=== PATIENT | female | born 1975 | race Caucasian/White ===

== ENCOUNTER 2018-02-22 09:38 | Emergency (ER) | payer OTHER, SELFPAY ==
[2018-02-22 09:41] VITALS: BP 163/94; PULSE 72; RESP 16; TEMP 36.6; O2SAT 100; BMI 28.2
--- NOTE | 2018-02-22 09:55 | RAD_ITS ---
STUDY: X-RAY - RIGHT HAND, ATTENTION SECOND FINGER REASON FOR EXAM: Female, 42 years old. INJURY, PAIN PROXIMAL FINGER TECHNIQUE: 3 view(s) of the finger were obtained. COMPARISON: None. FINDINGS: Normal metacarpal head. Normal metacarpophalangeal joint. Normal proximal phalanx. Normal middle phalanx. Normal distal phalanx. Normal proximal interphalangeal joint. Normal distal interphalangeal joint. RAD/Finger(s) Min 2 Views IMPRESSION: Normal x-ray examination of the finger. Electronically Signed: Sharmaine Serrano MD at 10:09 EDT , Service support ,
--- NOTE | 2018-02-22 09:55 | ED.VISSUMM ---
- ER Visit Summary Date of Service: 02/22/18 Chief Complaint: Right middle finger injury History of Present Illness: The patient is a 42 F with no primary care physician. 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 She reports that 2 days ago she was breaking down a cardboard box when 1 of the flap slammed down on her right index finger. She reports that at that point she seemed to have a forced flexion at the MCP joint. She states that it happened quickly and she is unsure whether she was able to straighten this out on her own or whether she had use her other hand to straighten it out. However, she reports that since then she has had an aching pain is 6 out of 10 with movement and 4 out of 10 at rest. She denies any paresthesias distally. She denies any other complaints. Physical Examination: Vitals: Stable. Afebrile. General: Well-nourished and well-developed. Head: Normocephalic atraumatic. Neck: Supple, no lymphadenopathy. No JVD. Nontender. Cardiovascular: Regular rate and rhythm. No murmurs. Respiratory: No respiratory distress. Clear to auscultation bilaterally. Abdominal: Soft, nontender, nondistended, normal bowel sounds. No guarding, rebound, or peritoneal signs. Back: Nontender. Extremities: Right index finger shows her to have mild tenderness palpation over the palmar surface of her hand over the second metacarpal head and MCP joint. She has minimal ability to flex the MCP joint. She is able to flex the PIP joint to approximately 90?. She is able to extend against resistance without difficulty. There is mild soft tissue swelling. She is neurovascular intact. Neurologic: Alert and oriented ?3. Cranial nerves II through XII are intact. Normal strength and sensation. Psych: Normal affect. Test Results: Right second finger x-ray is normal. Emergency Department Course and Treatment: Patient refused pain medications. She already has an aluminum foam splint in place. Treatment Plan: Patient will be discharged instructions to follow-up with Dr. Mcbride in 1 week if not improving. Disposition: To home in improved and stable condition. Impression: 1. Right second MCP joint sprain. This note was generated with [employer] dictation software. It may contain incorrect words, spelling, and punctuation that were not noted in review of the chart prior to signing ED Disposition - Plan for ED Patient: Chief Complaint: Upper Extremity Injury Instructions: ED Sprain Finger Referrals: Ashley Mcbride DO [STAFF PHYSICIAN] - 1 Week if not improving
[2018-02-22 10:58] VITALS: RESP 16
--- NOTE | 2018-02-22 10:58 | ED.RN ---
REVIEWED D/C INSTRUCTIONS, FOLLOW UP CARE, AND S/S THAT WOULD WARRANT A RETURN TO THE ED WITH PT. PT VERBALIZED AN UNDERSTANDING AND DENIES FURTHER QUESTIONS FOR THIS RN. PT SKIN P/W/D, RESP EVEN AND UNLABORED, PT A&O X 3, NO DISTRESS NOTED. PT AMBULATED OUT OF ED, GAIT STEADY.
== END 2018-02-22 10:59 | disposition home or self-care (01) ==
PROVIDERS: Emergency Provider Emergency Medicine
DX: S63.650A Sprain of metacarpophalangeal joint of right index finger, initial encounter (principal); Y29.XXXA Contact with blunt object, undetermined intent, initial encounter; Y93.9 Activity, unspecified; Y92.89 Other specified places as the place of occurrence of the external cause; Y99.9 Unspecified external cause status; F17.200 Nicotine dependence, unspecified, uncomplicated
CPT/HCPCS: 73140; 99282

== ENCOUNTER 2025-04-30 23:52 | Emergency (ER) | payer MEDICAID, SELFPAY ==
[2025-04-30 23:52] VITALS: BP 199/105; BP 205/111; PULSE 120; PULSE 128; RESP 19; RESP 20; TEMP 36.2; O2SAT 98; BMI 30.8
[2025-05-01] VITALS (7 sets, daily range): BP systolic 150–195; BP diastolic 81–117; PULSE 76–106; RESP 16–18; TEMP 36.5–36.8; O2SAT 97–100
--- NOTE | 2025-05-01 00:13 | EX.ED.VIS.PS ---
HPI HPI - Psych History of Present Illness Chief Complaint: Depression Informant: patient and mental health staff Onset/Context/Timing Onset: Days Context: Gradual Onset Timing: Continuous Worsened by: Situational factors Relieved by: Nothing Associated Symptoms Associated Symptoms - Psych: Positive for Depressed, Change in Eating, Change in sleeping, Paranoia and - (Tactile hallucinations); Negative for Suicidal Thoughts, Visual Hallucinations or Auditory Hallucinations Narrative Narrative: Patient presents with worsening depression. Patient denies any suicidal or homicidal ideations. Patient was pink slipped by crisis. Crisis counselor states the patient has been having tactile hallucinations. Patient states it feels like there is mold growing on her. Patient was seen by winch runner today who did a biopsy on her left forearm. Patient states she has sores on her left forearm that are due to mold. Crisis counselor states patient is not eating as much as normal. Crisis counselor states patient not sleeping is much as normal. Crisis counselor is making arrangements for patient to be placed in a psychiatric facility. [facility] Medical History (Updated 05/01/25 @ 00:47 by Maryam Majano) Hx of Narcolepsy Idiopathic insomnia Neeraj's thyroiditis Home Medications ?Medication ?Instructions ?Recorded ?Last Taken ?Type albuterol sulfate 90 mcg/actuation 2 puff inhalation Q4H PRN PRN 05/01/25 Unknown History aerosol inhaler wheezing bisoprolol fumarate 5 mg tablet 5 mg PO DAILY 05/01/25 Unknown History cefdinir 300 mg capsule 300 mg PO Q12H 05/01/25 Unknown History clindamycin phosphate 1 % lotion 1 applic topical BID 05/01/25 Unknown History dextroamphetamine-amphetamine 30 1 tab PO DAILY 05/01/25 Unknown History mg tablet dextroamphetamine-amphetamine ER 1 cap PO DAILY 05/01/25 Unknown History 30 mg 24hr capsule,extend release estradiol 0.1 mg/24 hr weekly 1 patch transdermal QWEEK 05/01/25 Unknown History transdermal patch prednisone 20 mg tablet 20 mg PO DAILY 05/01/25 Unknown History progesterone micronized 100 mg 100 mg PO DAILY 05/01/25 Unknown History capsule solriamfetol 150 mg tablet (Sunosi) 150 mg PO DAILY 05/01/25 Unknown History thyroid (pork) 30 mg tablet 150 mg PO DAILY 05/01/25 Unknown History ([place] Thyroid) triamcinolone acetonide 0.1 % 1 applic topical TID 05/01/25 Unknown History topical cream Allergy/AdvReac Type Severity Reaction Status Date / Time Sulfa (Sulfonamide Allergy Unknown Verified 05/01/25 02:22 Antibiotics) Surgical History (Updated 05/01/25 @ 00:47 by Maryam Majano) Hx of cervical polypectomy Hx of dilation and curettage Hx of tubal ligation Hx of wisdom tooth extraction Social History (Updated 05/01/25 @ 00:[address] Jeff Lockhart, DO) Smoking Status: Former smoker EXAM Physical Exam Const Vital Signs: 04/30/25 23:52 04/30/25 23:52 05/01/25 02:00 Temperature 97.1 F L Temperature Source Temporal Pulse Rate 128 H 120 H 106 H Respiratory Rate 19 H 20 H 18 Blood Pressure 205/111 H 199/105 H 188/117 H Blood Pressure Mean 142 136 140 Pulse Ox 98 98 98 Oxygen Delivery Method Room Air Room Air Room Air 05/01/25 04:00 05/01/25 06:00 Temperature 98.2 F Temperature Source Oral Pulse Rate 97 84 Respiratory Rate 18 18 Blood Pressure 195/116 H 150/88 H Blood Pressure Mean 142 108 Pulse Ox 100 98 Oxygen Delivery Method Room Air Room Air Positive well nourished and well developed Constitutional Narrative: BMI is 30.8. General Appearance ED: well developed and NAD HEENT Reports moist mucous membranes normocephalic Neck supple and no JVD Resp normal respiratory effort and clear to auscultation bilaterally Cardio Rate: regular rate Rhythm: regular rhythm GI non-tender and non-distended Palpation: soft Neuro oriented x3, CN's II-XII intact bilaterally and no sensory deficits noted [place] Coma Scale: document GCS findings Spontaneous Obeys Commands Oriented 15 Sensorium / Orientation: alert Motor Exam: strength 5/5 throughout Psych Appearance: grossly normal Attitude: paranoid and agitated Activity / Motor Behavior: appropriate eye contact, hyperactive and restless Speech: excessive and rapid Mood & Affect: anxious, tearful and labile affect Thought Process: racing thoughts Thought Content: No suicidality, No homicidality and hallucination(s) Positive for tactile MDM MDM MDM Narrative Medical decision making narrative: Medical screening labs will be obtained. CBC will be obtained to assess for leukocytosis or anemia. Basic metabolic profile will be obtained to assess for electrolyte abnormality and renal function. Serum hCG will be obtained to assess for . Serum alcohol level will be obtained to assess for alcohol intoxication. Urine drug screen will be obtained to assess for substance abuse. Lab Data Attestation: I reviewed the patient's lab results. Lab results narrative: CBC was reviewed and was within normal limits. Basic metabolic profile was reviewed and was within normal limits. Serum alcohol level was reviewed and was less than 10.1. Urine drug screen was reviewed and was positive for amphetamines but was otherwise negative. Labs: Laboratory Results - last 24 hr 05/01/25 00:34 WBC 10.9 RBC 5.23 Hgb 14.7 Hct 43.9 MCV 83.9 MCH 28.1 MCHC 33.5 RDW Std Deviation 42.8 RDW Coeff of Drake 14.0 Plt Count 290 MPV 9.9 Immature Gran % (Auto) 0.400 Neut % (Auto) 75.7 H Lymph % (Auto) 15.6 L Kimble % (Auto) 7.8 Eos % (Auto) 0.3 Baso % (Auto) 0.2 Absolute Neuts (auto) 8.2 H Absolute Lymphs (auto) 1.70 Nucleated RBC % 0 Sodium 140 Potassium 3.9 Chloride 107 Carbon Dioxide 19.8 L Anion Gap 14 BUN 15 Creatinine 0.89 Estim Creat Clear Calc 84.76 Est GFR (MDRD) Non-Af 80 BUN/Creatinine Ratio 17.2 Glucose 126 H Calcium 9.2 Serum , Qual NEGATIVE Urine Opiates Screen NEGATIVE U Buprenorphine Qual NEGATIVE Ur Oxycodone Screen NEGATIVE Urine Methadone Screen NEGATIVE Urine Fentanyl Screen NEGATIVE Ur Barbiturates Screen NEGATIVE Ur Phencyclidine Scrn NEGATIVE Ur Amphetamines Screen PRESUMPTIVE POSITIVE U Benzodiazepines Scrn NEGATIVE Urine Cocaine Screen NEGATIVE U Cannabinoids Screen NEGATIVE Ethyl Alcohol < 10.1 Management Discussion w/another healthcare provider: Behavioral health Treatment and Re-Evaluation Narrative: Patient was given injection of Geodon here. Crisis counselor filled out a pink slip. Patient will be transferred to psychiatric facility when bed becomes available. Patient is medically cleared for placement. Patient was given a dose of her blood pressure medication. Patient was given a repeat dose of her blood pressure medication again this morning. Patient is pending acceptance to [facility]. Care of the patient will be turned over to the oncoming physician pending placement. Discharge Plan Triage Chief Complaint: Depression ED Provider: Jeff Lockhart Dx/Rx/DC Orders Clinical Impression: Depression, Tactile hallucinations, Paranoid ideation Prescriptions: No Action albuterol sulfate 90 mcg/actuation HFA aerosol inhaler 2 puff INHALATION Q4H PRN PRN (Reason: wheezing) thyroid (pork) [[place] Thyroid] 30 mg tablet 150 mg PO DAILY dextroamphetamine-amphetamine 30 mg capsule,extended release 24hr 1 cap PO DAILY Sunosi 150 mg tablet 150 mg PO DAILY dextroamphetamine-amphetamine 30 mg tablet 1 tab PO DAILY Patient Comments: in the afternoon cefdinir 300 mg capsule 300 mg PO Q12H prednisone 20 mg tablet 20 mg PO DAILY bisoprolol fumarate 5 mg tablet 5 mg PO DAILY estradiol 0.1 mg/24 hr patch weekly 1 patch transdermal QWEEK progesterone micronized 100 mg capsule 100 mg PO DAILY clindamycin phosphate 1 % lotion 1 applic topical BID triamcinolone acetonide 0.1 % cream 1 applic topical TID Primary Care Provider: Marilou Chino Referrals: Care Physician,No Primary [Non-Staff] - Print Language: Pashto Disposition Disposition: Psychiatric Hospital or Unit Discharge Location: [facility]
--- NOTE | 2025-05-01 00:38 | ED.RN ---
This RN attempted to complete the patient's required arnold along with the appropriate assessments on the patient. However when this RN attempted to get the patient changed into gowns and to remove her personal belongings from the room, the patient became very argumentative with this RN, stating do you think I am a mental person, why would I need to be in a gown, why can I not have my belongings. This RN attempted to explain the process of being in the ED and what being pink slipped meant for the patient, however, the patient proceeded to interrupt this RN, becoming increasingly more agitated and upset. The patient spontaneously would break out into tears, stating I am just so lonely and I don't understand why you are punishing me for being sad, I don't understand why you think I am a mental person, and why you think I need psychiatric help, I have medical conditions, that I take care of. I am not a crazy person, if I was, I would get help. I don't understand why you are doing this to me. At this point, NIGHAT Hancock entered the room and explained to the patient the plan of care while the patient was in the ED. NIGHAT Hancock explained to the patient that the patient was pink slipped by the crisis center and they recommended acute psychiatric care and that we legally need to follow what the pink slip states. Multiple times during this interaction, the patient remained on her phone, texting and attempting to call the patient's family members. NIGHAT Hancock read the pink slip to the patient to help the patient understand why the patient was recommended for acute psychiatric care. The patient remained on her phone. NIGHAT Hancock politely asked the patient to put her phone down if she would like to have a discussion. The patient burst into tears stating, I don't understand why you guys think I am crazy, I have real medical issues because I had mold in my house and now I have it in my skin, which is why I went and got it biopsied. I have real things wrong with me, I don't understand why you think I am hallucinating, I don't have that type of narcolepsy. I have it in my chart that I don't have hallucinations, I don't understand why you don't get that. After a lengthy conversation, the patient agreed to get dressed in the gowns and to put her belongings in patient belonging bags. This RN completed the appropriate documentation on the patient and allowed the patient to eat the food that the patient had brought in with her, to attempt to calm the patient down.
[2025-05-01 00:41] LABS: Hematocrit 43.9 % (37-47); Hemoglobin 14.7 g/dL (12.0-15.0); Immature Granulocytes Count 0.040 X10^3/uL (0.0-0.0); Mean Corp Hgb Conc 33.5 g/dL (32-36); Mean Corpuscular Volume 83.9 fL (81-99); Mean Platelet Vol. 9.9 fl (6.2-12.0); NRBC Flagged by Analyzer 0 % (0-5); Platelet Count 290 K/mm3 (150-450); RBC Distribution Width CV 14.0 % (11.6-14.6); RBC Distribution Width SD 42.8 fl (35.1-43.9); Red Blood Count 5.23 M/mm3 (4.2-5.4); White Blood Count 10.9 K/mm3 (4.4-11.0)
[2025-05-01 00:57] LABS: Internal QC Validated? YES +Cl - CLEAR BKGD; Pregnancy, Serum, hCG Quali. NEGATIVE Negative; Record Kit Lot#, Serum Preg. 0000962302
[2025-05-01 01:03] LABS: Alcohol, Blood (Medical)-Serum < 10.1 mg/dL (<=10.0); Anion Gap 14 (5-15); BUN 15 mg/dL (4-19); BUN/Creat Ratio 17.2 RATIO (10-20); Barbiturate Urine NEGATIVE (< 200 ng/mL); Benzodiazepine Urine NEGATIVE (< 200 ng/mL); Calcium,Total 9.2 mg/dL (7.6-11.0); Carbon Dioxide 19.8 mmol/L (21.0-32.0); Chloride 107 mmol/L (98-108); Estimated Creatinine Clearance 84.76 ml/min (50-250); Glucose 126 mg/dL (70-99); PCP Urine NEGATIVE (< 25 ng/mL); Potassium 3.9 mmol/L (3.3-5.1); THC Urine NEGATIVE (< 50 ng/mL)
--- OUTSIDE RECORDS SUMMARY | 2025-05-01 01:04 | XMS RPT_ITS | CCD ---
Author Organization [facility] Care Team Providers Care Computer Security Manager Name Role Phone Joshua Paul Unavailable Unavailable Primay Care Physicia, No Unavailable Unavail able Unavailable Primary Care Provider Unavailabl e Unavailable Primary Care Provider Unavailabl e PROVIDER, UNKNOWN Referring Unavailable Matti, Carlos Primary Care Unavailable Carlos Chino Attending Unavailable PROVIDER, UNKNOWN Referring Unavailable Matti, Carlos Primary Care Unavailable Carlos Chino Attending Unavailable Carlos Chino DO Primary Care Provider TYLER RICK Referring Unavailable TYLER RICK Referring Unavailable CHINO, CARLOS Primary Care Unavailable CHENG RUIZ~[phone], CHENG ARELLANO Attending Un available CHENG RUIZ~[phone], CHENG ARELLANO Admitting Un available Carlos Chino DO Primary Care Provider BJ MERAZ DO Attending Unavailable CHINO, CARLOS Primary Care Unavailable CHINO, CARLOS Primary Care Unavailable AMANDA ZAMUDIO Attending Unavailable AMANDA ZAMUDIO Admitting Unavailable ROGER DAVIES JR Attending Unavailab le MATTI, CARLOS Primary Care Unavailable ANAND, EILEEN Referring Unavailable ANAND, EILEEN Attending Unavailable CHINO, CARLOS Primary Care Unavailable CHINO, CARLOS Primary Care Unavailable CHANDNI BEST Attending Unavailable CHINO, CARLOS Primary Care Unavailable CHINO, CARLOS Referring Unavailable JASON CHINOMAN Attending Unavailable CHINO, CARLOS Primary Care Unavailable JONY VALLADARES Attending Unavailable CHINO, CARLOS Primary Care Unavailable AKASH VALLADARESOR Attending Unavailable ANAND, EILEEN Referring Unavailable CHENG, EILEEN Attending Unavailable CHINO, CARLOS Primary Care Unavailable CHINO, CARLOS Primary Care Unavailable JEFF BROOKS Attending Unavailable CHINO, CARLOS Primary Care Unavailable AMANDA ZAMUDIO Attending Unavailable MARICARMEN BOLTON Attending Unavailable CARLOS CHINO Primary Care Unavailable MARICARMEN BOLTON Referring Unavailable Allergies Allergy Classification Reported Allergen(s) Allergy Type Date of Onset Reaction(s) Facility (2 sources) Sulfonamides (Antibiotic); Translations: [SULFA (SULFONAMIDE ANTIBIOTICS)] Drug allergy (disorder) 07-11-20 Unknown [facility] Repository (14 sources) Laureth-3; Translations: [SODIUM LAURETH SULFATE] Drug Allergy 07-11-20 Rash [facility] Other [place] Repository (13 sources) amLODIPine Drug Allergy 02-20-20 Swelling [facility] (13 sources) Biotin Drug Allergy 02-20-20 [facility] (14 sources) levothyroxine; Translations: [levothyroxine] Drug Allergy 02-20-20 [facility] (13 sources) Losartan Drug Allergy 02-20-20 Other [facility] (13 sources) metFORMIN Drug Allergy 02-20-20 Diarrhea [facility] (13 sources) Penicillins Propensity to adverse reactions 02-28-20 [facility] (13 sources) Ramipril Allergy to substance 02-20-20 [facility] (13 sources) Sulfamethoxazole / Trimethoprim Drug Allergy 02-20-20 [facility] (13 sources) Sulfonamides (Antibiotic) Drug Allergy 07-11-20 [facility] (13 sources) varenicline Drug Allergy 02-20-20 Hallucinations [facility] (1 source) Penicillin; Translations: [penicillin] Drug Allergy [facility] (1 source) Sulfonamide; Translations: [sulfa drugs] Drug allergy [facility] Medications Current Medications Medication Drug Class(es) Dates Sig (Normalized) Sig (Original) [id number] 200 actuat albuterol 0.09 mg/actuat metered dose inhaler (9 sources) beta2-Adrenergic Agonist Start: 03-23-2025 End: 04-22-2025 take 2 puff(s) by inhalation every four hours as needed for wheezing albuterol 108 (90 Base) MCG/ACT inhaler Inhale 2 puffs every 4 hours as needed for wheezing. 18 g 03/23/2025 04/22/2025 Active 24 hr amphetamine aspartate 7.5 mg / amphetamine sulfate 7.5 mg / dextroamphetamine saccharate 7.5 mg / dextroamphetamine sulfate 7.5 mg extended release oral capsule (20 sources) Central Nervous System Stimulant take 1 tablet by mouth once daily amphetamine-dext roamphetamine (Adderall) 30 MG tablet Take 30 mg by mouth daily. Active take 1 capsule by mo uth once daily in the morning, then take 1 capsule by mouth every twenty-four hours amphetamine-dextroamphetamine XR (Addera ll XR) 30 MG 24 hr capsule Take 30 mg by mouth every morning. Do not crush or chew. Active ascorbic acid 1000 mg oral tablet (7 sources) Vitamin C take 1 tablet by mouth once daily ascorbic acid (Vitamin C) 1000 MG tablet Take 1 tablet by mouth daily. Active B Complex Vitamins (B COMPLEX PO) (13 sources) B Complex Vitami ns (B COMPLEX PO) Take by mouth. Active bisoprolol fumarate 5 mg oral tablet (13 sources) beta-Adrenergic Nicole Start: bisoprolol (Zebeta) 5 MG tablet Every 24 hours. 02/18/2024 Active CHELATED MAGNESIUM PO (13 sources) CHELATED MAGNESI UM PO Take by mouth. Active CHELATED ZINC PO (13 sources) CHELATED ZINC PO Take by mouth. Active Copper (13 sources) Copper-containing Intrauterine Device COPPER PO Take by mouth. Active docosahexaenoic acid 120 mg / eicosapentaenoic acid 180 mg oral capsule (13 sources) take 1 capsule by mouth every twenty-four hours omega-3 (fish oil) 1000 MG capsule Take 1 capsule by mouth Every 24 hours. Active doxycycline hyclate 100 mg oral tablet (1 source) Tetracycline-class Drug Start: End: take 1 tablet by mouth twice daily doxycycline (Vibra-Tabs) 100 MG tablet Indications: Hypersensitivity pneumonia (CMS/HCC) (HCC) , Subacute cough Take 1 tablet (100 mg) by mouth 2 times daily for 10 days. Take with a full glass of water and do not lie down for at least 30 minutes after. 20 tablet 04/09/2025 04/19/2025 Active 168 hr estradiol 0.36054 mg/hr transdermal system (7 sources) Estrogen Start: estradiol (Climara) 0.1 MG/24HR Place 1 patch on the skin 1 (one) time per week. 03/20/2025 Active Lysine (13 sources) LYSINE PO Take b y mouth. Active magnesium glycinate 100 mg oral tablet (7 sources) take 1 tablet by mouth once daily Magnesium Glycinate 100 MG capsule Take 1 tablet by mouth daily. Active 24 hr mirabegron 25 mg extended release oral tablet (7 sources) beta3-Adrenergic Agonist Start: take 1 tablet by mouth once daily Myrbetriq 25 MG 24 hr tablet Take 25 mg by mouth daily. 03/23/2025 Active OIL OF OREGANO PO (13 sources) OIL OF OREGANO P O Take by mouth. Active potassium citrate (13 sources) POTASSIUM CITRAT E PO Take by mouth. Active predniSONE 20 mg oral tablet (1 source) Start: End: take 1 tablet by mouth once daily predniSONE (Deltasone) 20 MG tablet Take 1 tablet (20 mg) by mouth daily. 30 tablet 1 04/09/2025 06/08/2025 Active progesterone 100 mg oral capsule (7 sources) Progesterone Start: take 2 capsules by mouth once daily progesterone (Prometrium) 100 MG capsule Take 200 mg by mouth daily. 03/05/2025 Active Selenium 200 MCG capsule (7 sources) take 1 tablet by mouth once daily Selenium 200 MCG capsule Take 1 tablet by mouth daily. Active solriamfetol 150 mg oral tablet (13 sources) Start: Sunosi 150 MG tablet Take 1 tablet by mouth. 02/06/2025 Active spironolactone 25 mg oral tablet (7 sources) Aldosterone Antagonist Start: take 1 tablet by mouth every twenty-four hours spironolactone (Aldactone) 25 MG tablet Take 25 mg by mouth Every 24 hours. 12/14/2024 Active thyroid (group home) 30 mg oral tablet (13 sources) [place] Thyroid 3 0 MG tablet Every 24 hours. Active valerian root extract (13 sources) VALERIAN ROOT PO Take by mouth. Active Vitamin D-Vitamin K (VITAMIN K2-VITAMIN D3 PO) (13 sources) Vitamin D-Vitami n K (VITAMIN K2-VITAMIN D3 PO) Take by mouth. Active Completed/Discontinued Medications Medication Drug Class(es) Dates Sig (Normalized) Sig (Original) acetaminophen 500 mg oral tablet (7 sources) Start: 02-27-2025 End: 04-02-2025 take 2 tablets by mouth every six hours as needed for pain acetaminophen (Tylenol Extra Strength) 500 MG tablet Take 2 tablets (1,000 mg) by mouth every 6 hours as needed for mild pain (1-3) for up to 10 days. 30 tablet 02/27/2025 11:18 AM EDT 02/27/2025 04/02/2025 Start: 02-27-2025 End: 02-27-2025 1,000 mg, Oral, Once, On Wed02/27/25 at 0830, For 1 dose, Preprocedure, Administer 60 minutes prior to surgery. albuterol 0.833 mg/ml / ipratropium bromide 0.167 mg/ml inhalation solution (2 sources) Anticholinergic, beta2-Adrenergic Agonist Start: 03-23-2025 End: 03-23-2025 3 mL, Nebulization, Once, On Wed03/23/25 at 0940, For 1 dose ALPRAZolam 0.25 mg disintegrating oral tablet (2 sources) Benzodiazepine Start: 02-27-2025 End: 02-27-2025 take 0.25 mg by mouth once as needed for anxiety 0.25 mg, Oral, Once PRN, anxiety, Starting on Wed02/27/25 at 0817, For 1 dose, Preprocedure, Please do not administer prior to obtaining consent and/or history and physical. aprepitant 40 mg oral capsule (2 sources) Substance P/Neurokinin-1 Receptor Antagonist Start: 02-27-2025 End: 02-27-2025 take 40 mg by mouth once 40 mg, Oral, Once, On Wed02/27/25 at 0930, For 1 dose, Preprocedure calcium chloride 0.0014 meq/ml / potassium chloride 0.004 meq/ml / sodium chloride 0.103 meq/ml / sodium lactate 0.028 meq/ml injectable solution (4 sources) Start: 02-27-2025 End: 02-27-2025 take 125 mL intravenously every hour 125 mL/hr, IntraVENous, Continuous, Starting on Wed02/27/25 at 1045, Recovery (only) cholecalciferol 0.125 mg oral capsule (7 sources) Vitamin D End: 03-26-2025 take 1 capsule by mouth every twenty-four hours cholecalciferol (Vitamin D-3) 125 MCG (5000 UT) capsule Take 1 capsule by mouth Every 24 hours. 03/26/2025 Discontinued (Therapy completed) 1 ml diphenhydrAMINE hydrochloride 50 mg/ml cartridge (2 sources) Histamine-1 Receptor Antagonist Start: 02-27-2025 End: 02-27-2025 12.5 mg, IntraVENous, Once PRN, itching, Starting on Wed02/27/25 at 1034, For 1 dose, Recovery (only) 2 ml fentaNYL 0.05 mg/ml injection (4 sources) Opioid Agonist Start: 02-27-2025 End: 02-27-2025 50 mcg, IntraVENous, Every 5 min PRN, severe pain (7-10), Starting on Wed02/27/25 at 1034, For 3 doses, Recovery (only), Phase I and Phase II- Initial therapy for severe pain (7-10). Restricted to a 90 minute time frame starting when the patient can verbally state their pain score. If after 2 doses the pain score does not decrease by more than one point, then call the provider. If oral meds are utilized, do not return to initial therapy medications. Start: 02-27-2025 End: 02-27-2025 25 mcg, IntraVENous, Every 5 min PRN, moderate pain (4-6), Starting on Wed02/27/25 at 1034, For 3 doses, Recovery (only), Phase I and Phase II- Initial therapy for moderate pain (4-6). Restricted to a 90 minute time frame starting when the patient can verbally state their pain score. If after 2 doses the pain score does not decrease by more than one point, then call the provider. If oral meds are utilized, do not return to initial therapy medications. ibuprofen 600 mg oral tablet (5 sources) Nonsteroidal Anti-inflammatory Drug Start: 02-27-2025 End: 04-02-2025 take 1 tablet by mouth every six hours as needed for pain ibuprofen 600 MG tablet Take 1 tablet (600 mg) by mouth every 6 hours as needed for mild pain (1-3) for up to 15 days. 60 tablet 02/27/2025 11:18 AM EDT 02/27/2025 04/02/2025 labetalol (Normodyne,Trandate) injection 5 mg (2 sources) Start: 02-27-2025 End: 02-27-2025 labetalol (Normodyne,Tr andate) injection 5 mg 2 ml ondansetron 2 mg/ml injection (2 sources) Serotonin-3 Receptor Antagonist Start: 02-27-2025 End: 02-27-2025 4 mg, IntraVENous, Once PRN, nausea, Starting on Wed02/27/25 at 1034, For 1 dose, Recovery (only), Initial antiemetic therapy. oxyCODONE (2 sources) Opioid Agonist Start: 02-27-2025 End: 02-27-2025 take 1 tablet by mouth every four hours as needed for pain oxyCODONE (Roxicodone) immediate release tablet 5 mg prochlorperazine 5 mg/ml injectable solution (2 sources) Phenothiazine Start: 03-02-2025 End: 03-02-2025 take 10 mg intravenously every six hours as needed for nausea and vomiting 10 mg, IntraVENous, Every 6 hours PRN, nausea, vomiting, Starting on Wed03/02/25 at 1642 50 ml sodium chloride 9 mg/ml injection (20 sources) Start: 03-02-2025 End: 03-02-2025 1,000 mL, IntraVENous, at 1,000 mL/hr, Administer over 1 Hours, Once, On Wed03/02/25 at 1645, For 1 dose Start: 02-27-2025 End: 02-27-2025 10 mL, IntraVENous, Every 12 hours scheduled (2 times per day), First dose on Wed02/27/25 at 1045, Recovery (only) Start: 02-27-2025 End: 02-27-2025 500 mL, IntraVENous, at 1,00 0 mL/hr, Administer over 0.5 Hours, PRN, Anti-nausea, Starting on Wed02/27/25 at 1034, Recovery (only), Indications: Anti-nausea Start: 02-27-2025 End: 02-27-2025 take 10 mL intravenously once as needed 10 mL, IntraVENous, PRN, line care, Starting on Wed02/27/25 at 1034, Recovery (only), After every IV line use Start: 02-27-2025 End: 06-17-2025 take 5-40 mL intravenously every twelve hours 5-40 mL, IntraVENous, Every 12 hours, First dose on Wed02/27/25 at 0830, Preprocedure, For Line Patency: Peripheral IV = 5 mL; Midline or Central Line = 10 mL/lumen. If following IV push medication, administer flush at same rate as the IV push. Flush volume is determined by type of infusion therapy being given. For non-viscous solutions use: Peripheral IV = 5 mL Midline or Central Line = 10 mL/lumen For viscous solutions (i.e. blood components, parenteral nutrition, contrast media, or after obtaining blood sample) use: Peripheral IV = 10 mL Midline or Central Line = 20 mL/lumen Problems Active Problems Problem Classification Problem Date Documented Date Episodic/Chronic Abdominal pain (7 sources) Right upper quadrant pain; Translations: [Right upper quadrant pain] Onset: 03-27-2025 03-02-2024 Episodic Blindness and vision defects (6 sources) Visual disturbance; Translations: [Unspecified visual disturbance] Onset: 03-28-2025 03-28-2025 Episodic Diabetes mellitus without complication (2 sources) Other abnormal glucose; Translations: [OTHER ABNORMAL GLUCOSE] Onset: 12-15-2023 Episodic Essential hypertension (10 sources) Essential hypertension; Translations: [Essential (primary) hypertension] Onset: 03-26-2025 03-26-2025 Chronic Headache; including migraine (2 sources) Headache; Translations: [Nonintractable headache, unspecified chronicity pattern, unspecified headache type] 03-02-2025 Episodic Headache; including migraine (2 sources) Headache; including migraine; Translations: [Headache, unspecified] Onset: 03-02-2025 Lung disease due to external agents (6 sources) Extrinsic allergic alveolitis; 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] Onset: 04-09-2025 03-26-2025 Chronic Nausea and vomiting (15 sources) Postoperative nausea and vomiting; Translations: [Nausea with vomiting, unspecified] Onset: 02-27-2025 02-27-2025 Episodic Other female genital disorders (3 sources) Abnormal uterine bleeding; Translations: [Abnormal uterine and vaginal bleeding, unspecified] Onset: 03-27-2025 02-27-2025 Chronic Other female genital disorders (1 source) Vaginal bleeding 03-27-2025 Chronic Other female genital disorders (3 sources) Abnormal uterine and vaginal bleeding, unspecified; Translations: [Abnormal uterine and vaginal bleeding, unspecified] Onset: 02-27-2025 Chronic Other injuries and conditions due to external causes (15 sources) Motion sickness; Translations: [Motion sickness, initial encounter] Onset: 02-27-2025 02-27-2025 Episodic Other lower respiratory disease (1 source) Snoring; Translations: [Snoring] Onset: 12-01-2023 Episodic Other lower respiratory disease (2 sources) Cough; Translations: [Subacute cough] 03-26-2025 Episodic Other upper respiratory infections (4 sources) Acute upper respiratory infection; Translations: [Acute upper respiratory infection, unspecified] Onset: 03-23-2025 03-23-2025 Episodic Residual codes; unclassified (1 source) Obstructive sleep apnea (adult)(pediatric) Onset: 12-02-2023 Chronic Residual codes; unclassified (6 sources) Hypersomnia; Translations: [Hypersomnia, unspecified] Onset: 09-14-2024 09-14-2024 Chronic Residual codes; unclassified (1 source) Idiopathic hypersomnia; 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] 03-26-2025 Chronic Residual codes; unclassified (2 sources) Idiopathic hypersomnia with long sleep time; 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] Onset: 03-26-2025 Chronic Residual codes; unclassified (1 source) Hypersomnia, unspecified; Translations: [Hypersomnia, unspecified] Onset: 09-14-2024 Chronic Residual codes; unclassified (2 sources) Body temperature finding; Translations: [Other general symptoms and signs] 03-02-2025 Episodic Residual codes; unclassified (3 sources) Sleep disorder; Translations: [Sleep disorder, unspecified] 04-02-2025 Episodic Residual codes; unclassified (2 sources) Sleep disorder, unspecified; Translations: [Sleep disorder, unspecified] Onset: 04-02-2025 Episodic Residual codes; unclassified (2 sources) Other general symptoms and signs; Translations: [Other general symptoms and signs] Onset: 03-02-2025 Episodic Thyroid disorders (9 sources) Autoimmune thyroiditis; Translations: [Autoimmune thyroiditis] Onset: 07-03-2022 Chronic Unclassified (1 source) Subacute cough; Translations: [Subacute cough] Onset: 04-09-2025 Past or Other Problems Problem Classification Problem Date Documented Da te Episodic/Chronic Other connective tissue disease (2 sources) Muscle pain; Translations: [Myalgia, unspecified site] Onset: 09-14-2024 09-14-2024 Episodic Other connective tissue disease (1 source) Myalgia, unspecified site; Translations: [Myalgia, unspecified site] Onset: 09-14-2024 Episodic Other screening for suspected conditions (not mental disorders or infectious disease) (5 sources) Patient encounter status; Translations: [Encounter for screening mammogram for malignant neoplasm of breast] Onset: 09-14-2024 09-14-2024 Episodic Residual codes; unclassified (2 sources) Flushing; Translations: [Flushing] Onset: 09-14-2024 09-14-2024 Episodic Residual codes; unclassified (1 source) Flushing; Translations: [Flushing] Onset: 09-14-2024 Episodic Unclassified (2 sources) Subacute cough; Translations: [Subacute cough] Onset: 04-09-2025 03-26-2025 Results Test Name Value Interpretation Reference Range Facility 37on 04-09-2025 37 YOUR APPOINTMENT TOAshwini HOWARD WAS WITH [facility], COPD CLINIC, PULMONARY AND SLEEP MEDICINE OFFICE. PLEASE CALL OUR OFFICE AT [phone] for our [place] office location or [phone] for our [place] location, IF YOU HAVE NOT RECEIVED YOUR TEST RESULTS 7 DAYS AFTER TESTING IS COMPLETED. PLEASE REMEMBER TO REQUEST REFILLS AT YOUR OFFICE VISITS. PHONE/FAX REQUESTS REQUIRE 48-72 HOURS FOR RESPONSE. A FRIENDLY REMINDER COPAYS ARE DUE AT TIME OF SERVICE. THANK YOU. Our Patients Are Important! We want to improve and you can help. After your visit we want you to feel: Listened to, Respected and have your health care explained. You may receive a survey asking you about your visit. Please complete the survey. We will use your feedback to make improvements. COVID-19 VACCINATION INFORMATION: PH. [phone] HEALTH.[email or web address] /VACCINE [facility] Central Scheduling [phone] [facility] Sleep Scheduling [phone] Normal [facility] Office Visiton 04-09-2025 Follow-up visit [id number] Mercedes Flores 1975 F Date Provider Department Center 04/09/2025 [id number] MESSINA [facility]UL[facility] None Family History Problem Relation Age of Onset Acute lymphoblastic leukemia Father 31 Cancer Father Depression Father Early natural Father Leukemia Father's Brother Comments: LLC? Lung cancer Father's Brother Arthritis Mother Asthma Mother Depression Mother Heart disease Mother Hypertension Mother Arthritis Maternal Grandfather Asthma Maternal Grandfather Hearing loss Maternal Grandfather Heart disease Maternal Grandfather Hyperlipidemia Maternal Grandfather Hypertension Maternal Grandfather Arthritis Maternal Grandmother Depression Maternal Grandmother Diabetes Maternal Grandmother Heart disease Maternal Grandmother Hyperlipidemia Maternal Grandmother Hypertension Maternal Grandmother Arthritis Paternal Grandfather Cancer Paternal Grandfather Depression Paternal Grandfather Heart disease Paternal Grandfather Hyperlipidemia Paternal Grandfather Hypertension Paternal Grandfather Arthritis Paternal Grandmother Cancer Paternal Grandmother Depression Paternal Grandmother Diabetes Paternal Grandmother Heart disease Paternal Grandmother Hypertension Paternal Grandmother Miscarriages / Stillbirths Paternal Grandmother Stroke Paternal Grandmother Arthritis Brother Depression Brother Hypertension Brother Arthritis Other Diabetes Other Hearing loss Other Heart disease Other Hypertension Other Cancer Other Early natural Other Depression Sister Miscarriages / Stillbirths Sister Motion Sickness Sister Depression Other Early natural Other Kidney disease Other Miscarriages / Stillbirths Other Motion Sickness Other Family Status - Relation Status Age at Father Father's Brother Father's Brother Mother Alive Maternal Grandfather Alive Maternal Grandmother Alive Paternal Grandfather Alive Paternal Grandmother Alive Brother Alive Other Alive Other Alive Sister Alive Other Alive Other Alive Other Alive Other Alive Other Alive Level of Service:65409 OR OFFICE/OUTPATIENT ESTABLISHED MOD MDM 30 MIN Reason for Visit and Comments: Cough [28] Shortness of Breath [[id number]] Wheezing [798177] - CONGESTED Normal [facility] Progress Noteon 04-09-2025 Progress Note [facility] [address] [place] [address] PH: [phone] Visit type: An Established patient 04/09/2025 CHIEF COMPLAINT/REASON FOR REFERRAL: Chief Complaint Patient presents with Cough Shortness of Breath Wheezing CONGESTED History of Present Illness Josselyn Flores is a 49 y.o. female with history of Neeraj's thyroiditis, presents to the office for follow-up complains of increasing cough congestion cough productive of greenish sputum prior history of mold exposure currently patient living in a hotel Pneumonia vaccine: recommended Seasonal flu vaccine: refused COVID vaccine: initial RSV vaccine: [place] MMRC Dyspnea Scale: Grade Description of Breathlessness 0 I only get breathless with strenuous exercise. 1 I get short of breath when hurrying on level ground or walking up a slight hill. 2 On level ground, I walk slower than people of the same age because of breathlessness, or have to stop for breath when walking at my own pace. 3 I stop for breath after walking about 100 yards or after a few minutes on level ground. 4 I am too breathless to leave the house or I am breathless when dressing. PastMedical History Medical History[1] Past Surgical History Surgical History[2] Allergies Allergies[3] Medications Current Medications[4] Social History Social History Tobacco Use Smoking status: Former Current packs/day: 0.00 Average packs/day: 1 pack/day for 37.0 years (37.0 ttl pk-yrs) Types: Cigarettes Start date: 07/11/1986 Quit date: 07/11/2023 Years since quittin.7 Smokeless tobacco: Never Substance Use Topics Alcohol use: Not Currently Comment: once or twice a year FamilyHistory Family History[5] Review of Systems Review of Systems Constitutional: Positive for fatigue. Respiratory: Positive for cough, chest tightness and shortness of breath. Physical Exam Vitals: 04/09/25 1413 BP: 132/78 Pulse: 87 SpO2: 95% Weight: 191 lb 6.4 oz (86.8 kg) Height: 5' 6 (1.676 m) Physical Exam Vitals reviewed. Constitutional: Appearance: She is obese. Cardiovascular: Rate and Rhythm: Normal rate and regular rhythm. Pulses: Normal pulses. Heart sounds: Normal heart sounds. Pulmonary: Effort: Pulmonary effort is normal. Breath sounds: Wheezing present. Musculoskeletal: Cervical back: Normal range of motion and neck supple. Neurological: Mental Status: She is alert. Psychiatric: Mood and Affect: Mood normal. Behavior: Behavior normal. Data Reviewed and Summarized LABS and Studies: Available studies were personally reviewed. Salient findings summarized in HPI & A/P Imaging: Available studies were personally reviewed. Salient findings summarized in HPI & A/P PFT's: Pulmonary Functions Testing Results: No results found for: FEV1, FVC, BAJ9XOT, TLC, DLCO Assessment and Plan 1. Hypersensitivity pneumonia (CMS/HCC) (HCC) (Primary) Prescription for prednisone 20 mg p.o. daily till follow-up sent to the pharmacy - doxycycline (Vibra-Tabs) 100 MG tablet; Take 1 tablet (100 mg) by mouth 2 times daily for 10 days. Take with a full glass of water and do not lie down for at least 30 minutes after. Dispense: 20 tablet; Refill: 0 Patient having a mold mitigation done at home 2. Subacute cough Continue with albuterol inhaler - doxycycline (Vibra-Tabs) 100 MG tablet; Take 1 tablet (100 mg) by mouth 2 times daily for 10 days. Take with a full glass of water and do not lie down for at least 30 minutes after. Dispense: 20 tablet; Refill: 0 3. Hypersomnia Continue follow-up with Dr. Brooks 4. Obesity-weight loss Jony Valladares MD Pulmonary, Critical Care, & Sleep Medicine Portions of the information within this encounter were entered using an electronic dictation system. Best attempts were made to edit/proofread the information prior to note completion. Despite the review of information, some errors may remain. If there are questions related to the information contained within the note please contact the [1] Past Medical History: Diagnosis Date Adverse effect of anesthesia I didnt have the extreme daytime sleepiness problem in the past surgeries i have since developed it Neeraj's thyroiditis Heart valve disease 1979?s Mitral valve prolapse Hyperlipidemia My ankles swelled when i was first treating thyroid first year a small amount since if I am on my feet too long or hypothyroid Hypertension 2021 Came slong with Hoshimotos the valerian root and small dose potassium and bisoprolol taken at night keep it down the whole next day Hypothyroidism Motion sickness As long as I can remember Narcolepsy Pneumonia I had pneumonia around 2015 I believe PONV (postoperative nausea and vomiting) After tubal ligation and wisfom teeth removal surgeries PTSD (post-traumatic stress disorder) I probably had layers starting at (more content not included)... [facility] [place] 37on 04-02-2025 37 It was nice meeting with you today! - Please call [phone] to schedule your sleep study directly. Below you will find more information about the sleep lab and testing. - Once you know the date of your sleep study, please start the sleep log ([email or web address]) for the 2 weeks leading up to your study date. Bring the sleep log with you on the night of the sleep study to give to the irrigation service technician. - Ideally you would stop all stimulants (including sunosi and adderall for 2 weeks leading up to the test date. If that's not possible, please try for at least one week leading up to the test date. - On the day of, before, or after the sleep study, please go to a [facility] lab to give a urine sample ([email or web address] ng-[email or web address]/lab-[email or web address] es). The order is in the system (if they ask, let them know it should be under Dr. Brooks), and you will not need to bring paperwork with you. - We'll follow-up within approximately 1 week after the study to review the results. Jeff Brooks MD _ To learn more about preparing for a sleep study, please go to the following website: Preparing for a Sleep Study [employer] [facility] You can also watch a video about what happens during a sleep study at the link below (click on the video on the lower right for sleep lab study): [email or web address]/ [email or web address]- study You can also scan the QR code below and click on Sleep Lab Study _ The following is the location of the sleep lab where this testing is performed: [facility] at the [facility] [address], [address] [place] [address] Normal [facility] FREE T4on 04-02-2025 Free T4 [Mass/Vol] 0.90 ng/dL Normal 0.70-1.48 [facility] Comment on above: Performed By: #### L [id number], [id number] ####Foundry Hand: ANNABELLE WRIGHT ([id number])[facility] (SWRLAB)[address] [place] [address] Office Visiton 04-02-2025 Follow-up visit [id number] Mercedes Flores 1975 F Date Provider Department Center 04/02/2025 [id number] BROOKS [facility] None Family History Problem Relation Age of Onset Acute lymphoblastic leukemia Father 31 Cancer Father Depression Father Early natural Father Leukemia Father's Brother Comments: LLC? Lung cancer Father's Brother Arthritis Mother Asthma Mother Depression Mother Heart disease Mother Hypertension Mother Arthritis Maternal Grandfather Asthma Maternal Grandfather Hearing loss Maternal Grandfather Heart disease Maternal Grandfather Hyperlipidemia Maternal Grandfather Hypertension Maternal Grandfather Arthritis Maternal Grandmother Depression Maternal Grandmother Diabetes Maternal Grandmother Heart disease Maternal Grandmother Hyperlipidemia Maternal Grandmother Hypertension Maternal Grandmother Arthritis Paternal Grandfather Cancer Paternal Grandfather Depression Paternal Grandfather Heart disease Paternal Grandfather Hyperlipidemia Paternal Grandfather Hypertension Paternal Grandfather Arthritis Paternal Grandmother Cancer Paternal Grandmother Depression Paternal Grandmother Diabetes Paternal Grandmother Heart disease Paternal Grandmother Hypertension Paternal Grandmother Miscarriages / Stillbirths Paternal Grandmother Stroke Paternal Grandmother Arthritis Brother Depression Brother Hypertension Brother Arthritis Other Diabetes Other Hearing loss Other Heart disease Other Hypertension Other Cancer Other Early natural Other Depression Sister Miscarriages / Stillbirths Sister Motion Sickness Sister Depression Other Early natural Other Kidney disease Other Miscarriages / Stillbirths Other Motion Sickness Other Family Status - Relation Status Age at Father Father's Brother Father's Brother Mother Alive Maternal Grandfather Alive Maternal Grandmother Alive Paternal Grandfather Alive Paternal Grandmother Alive Brother Alive Other Alive Other Alive Sister Alive Other Alive Other Alive Other Alive Other Alive Other Alive Level of Service:30368 OR OFFICE/OUTPATIENT NEW HIGH MDM 60 MINUTES Reason for Visit and Comments: New Patient [[id number]] - IDIOPATHIC HYPERSOMNIA Normal [facility] Progress Noteon 04-02-2025 Progress Note [facility] Sleep Medicine - [address], [address] [place] [address] NEW PATIENT OFFICE VISIT 04/02/2025 REFERRING PHYSICIAN: No ref. provider found REASON FOR REFERRAL: Chief Complaint Patient presents with New Patient IDIOPATHIC HYPERSOMNIA HPI: Josselyn Flores is a 49 y.o. female. 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 Got to the point where she couldn't stay awake. Initially this was always attributed to hormones. However states that adjstuments to armour thyroid medication have not done much for sleepiness. Sunosi and adderall do help her sleepiness, but hates having to use them regularly. Still remains sleepy despite taking. 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 States she is looking into switching sleep providers. Narcolepsy symptoms: Sleep paralysis: no Sleep-related hallucinations: no Cataplexy: no Head trauma/viral illness preceding sleepiness: no Enters dream sleep quickly: no Sleep-Wake Schedule Bedtime: 11 P.M. to 12 A.M. Final wake time: 8:30 A.M. she does not wake up refreshed. Sleep Latency: very quickly with valerian root and sometimes melatonin Awakenings after sleep onset: 1-2x, because of going to the bathroom, and falls back asleep quickly Naps: can doze off despite adderall/sunosi. Not sure how long it lasts. Estimated total sleep time: 8 hours During Sleep: Habitual sleep position: side Snoring: yes Witnessed apneas: no Wakes up gasping for air: no Wakes up with heart pounding/racing: no RLS symptoms: She denies an urge to move the legs which interferes with sleep onset or maintenance. Parasomnias: She denies dream enactment or any abnormal behaviors during sleep. 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 She has fatigue. She has not fallen asleep while driving Caffeine: 1 cup coffee per day Recent weight change: stable/unchanged Sleep Metrics: [place] Sleepiness Scale: Total score: 20 Past Treatments: Sunosi Adderall Modafinil (didn't help) Magnesium glycinate Sleep Studies: PSG (12/01/23): Weight 86.2 kg. AHI 1.0; RDI 10.8; SpO2 min 94%. PLM 49.4; PLM-a 6.9. TST 288 minutes. Ambien taken night of study. UARS diagnosed. MSLT (12/02/23): MSL 7.9 mins; 2 SOREMPs. Narcolepsy type II diagnosed. Relevant LABS/Studies: MRI Brain: 03/28/25 IMPRESSION: 1. No acute intracranial findings. 2. Left maxillary and sphenoid sinus disease. CXR: 03/23/25: IMPRESSION: No acute abnormality Medical History[1] Surgical History[2] Allergies[3] Current Outpatient Medications Medication Instructions albuterol 108 (90 Base) MCG/ACT inhaler 2 puffs, Inhalation, Every 4 hours PRN amphetamine-dextroamph etamine (Adderall) 30 MG tablet 30 mg, Daily amphetamine-dextroamph etamine XR (Adderall XR) 30 MG 24 hr capsule 30 mg, Every morning [place] Thyroid 30 MG tablet Every 24 hours ascorbic acid (Vitamin C) 1000 MG tablet 1 tablet, Daily B Complex Vitamins (B COMPLEX PO) Take by mouth. bisoprolol (Zebeta) 5 MG tablet Every 24 hours CHELATED MAGNESIUM PO Take by mouth. CHELATED ZINC PO Take by mouth. COPPER PO Take by mouth. estradiol (Climara) 0.1 MG/24HR 1 patch, Weekly LYSINE PO Take by mouth. Magnesium Glycinate 100 MG capsule 1 tablet, Daily Myrbetriq 25 mg, Daily OIL OF [place]REG[place]O PO Take by mouth. omega-3 (fish oil) 1000 MG capsule 1 capsule, Every 24 hours POTASSIUM CITRATE PO Take by mouth. progesterone (PROMETRIUM) 200 mg, Daily Selenium 200 MCG capsule 1 tablet, Daily spironolactone (ALDACTONE) 25 mg, Every 24 hours Sunosi 150 MG tablet 1 tablet VALERIAN ROOT PO Take by mouth. Vitamin D-Vitamin K (VITAMIN K2-VITAMIN D3 PO) Take by mouth. Social History Tobacco Use Smoking status: Former Current packs/day: 0.00 Average packs/day: 1 pack/day for 37.0 years (37.0 ttl pk-yrs) Types: Cigarettes Start date: 07/11/1986 Quit date: 07/11/2023 Years since quittin.7 Smokeless tobacco: Never Substance Use Topics Alcohol use: Not Currently Comment: once or twice a year Family History[4] Family Sleep History: Unknown Review of Systems Constitutional: Positive for fatigue. Respiratory: Positive for cough. Psychiatric/Behavioral : Positive for decreased concentration and sleep disturbance. Physical Exam: Vitals: 04/02/25 1250 BP: 132/86 Pulse: 82 SpO2: 97% Weight: 194 lb (88 kg) Height: 5' 6 (1.676 m) Body mass index is 31.31 kg/m?. Neck Circumference (in): 14 in. General appearance: NAD. Mental Status/Psych: A&O x 3. Dysthymic mood, tearful affect. Skin: No rashes or lesions. Skin palpation normal. Head: Normocephalic, without obvious abnormality, atraumatic Eyes: PERRL, EOM intact. Normal sclera and conjunctiva Neck: Supple, No JVD. No thyromegaly. Lungs: Bilateral wheezing and rhonchi, R side > L Heart: RRR, S1, S2 normal, no m (more content not included)... Normal [facility] T3 FREEon 04-02-2025 Free T3 [Mass/Vol] 2.92 pg/mL Normal 1.58-3.91 [facility] Comment on above: Performed By: #### L AB137 ####Foundry Hand: PRASHANTH SHEFFIELD ([id number])[facility])[address] [place] [address] THYROID STIMULATING HORMONEo n 04-02-2025 THYROID STIMULATING HORMONE 0.03 uIU/mL Low 0.35-4.94 [facility] Comment on above: Performed By: #### L AB129, [id number] ####Foundry Hand: ANNABELLE WRIGHT ([id number])[facility] (SWRLAB)[address] [place] [address] 36on 03-28-2025 36 Pt was in for ov on 03/26/2025 and received samples of trelegy 200 Pt received 2 samples 28 day supply Lot # [id number] Exp 04/2026 Normal [facility] 36 Name of caller: Josselyn Contact phone number: [phone] Relationship to Patient: patient Provider: Dr Valladares Practice: [facility] Chief Complaint/Reason for Call: Patient called stating that she was seen on 03/26/25. Patient asking for a call back to discuss her diagnosis and would like to know if she can go back to work or if it will affect her lungs. 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 Patient also stated that she is sleeping in her car right now and would like to know if she can go home or if it will flare up her lungs due to mold. Please call patient back to advise. Best time of day caller can be reached: Any Patient advised that office/PCP has 24-48 business hours to return their call: N/A Normal [facility] BVPCRon 03-28-2025 Bacterial Vaginosis Negative Normal Negative [facility] Comment on above: Result Comment: Mole cular methodology performed on the [email or web address] System. Performed By: #### C TPCR, CVTV, NGPCR1, BVPCR #### [place] [address] CTPCRon 03-28-[address] Interp See CT Interp N Normal See CT Interp N [facility] Comment on above: Result Comment: Clinical Interpretation: C. trachomatis DNA not detected. Specimen is presumptive negative for C. trachomatis. A negative result does not preclude C. trachomatis infection because results depend on adequate specimen collection, absence of inhibitors, and sufficient DNA to be detected. Performed By: #### C TPCR, CVTV, NGPCR1, BVPCR #### [place] [address] C.trachomatis PCR Negative Normal Negative [facility] Comment on above: Result Comment: Craig palomares (PCR) assay performed on the Kayla Fanta 4800 system. Performed By: #### C TPCR, CVTV, NGPCR1, BVPCR #### [place] [address] Chlam Source Cervix Normal [facility] Comment on above: Result Comment: Yousif sport tube received with two swabs. Review collection procedure. Inappropriate collection may cause aberrant results. Performed By: #### C TPCR, CVTV, NGPCR1, BVPCR #### [address] [address] CVTVon 03-28-2025 Amberly glabrata Negative Normal Negative [facility] Comment on above: Performed By: #### C TPCR, CVTV, NGPCR1, BVPCR #### [address] [address] Amberly Species Negative Normal Negative [facility] Comment on above: Result Comment: Mole cular methodology performed on the [email or web address] System. Performed By: #### C TPCR, CVTV, NGPCR1, BVPCR #### [place] [id number] Trichomonas vaginalis Negative Normal Negative [facility] Comment on above: Performed By: #### C TPCR, CVTV, NGPCR1, BVPCR #### [place] [address] [id number] 03-28-2025 GC PCR Source Cervix Normal [facility] Comment on above: Result Comment: Yousif sport tube received with two swabs. Review collection procedure. Inappropriate collection may cause aberrant results. Performed By: #### C TPCR, CVTV, NGPCR1, BVPCR #### [place] [id number] N. gonorrhoeae (PCR) Negative Normal Negative [facility] Comment on above: Result Comment: Craig palomares (PCR) assay performed on the Kayla Fanta 4800 System. Performed By: #### C TPCR, CVTV, NGPCR1, BVPCR #### [address] [address] N. gonorrhoeae Interp See NG Interp N Normal See NG Interp N [facility] Comment on above: Result Comment: Clinical Interpretation: N. gonorrhoeae DNA not detected. Specimen is presumptive negative for N. gonorrhoeae. A negative result does not preclude Neisseria gonorrhoeae infection because results depend on adequate specimen collection, absence of inhibitors, and sufficient DNA to be detected. Performed By: #### C TPCR, CVTV, NGPCR1, BVPCR #### [address] [place], [place] [address] .Auto Diffon 03-27-2025 Basophil, Absolute 0.0 10 3/mcL Normal 0.0-0.3 [facility] Comment on above: Performed By: #### A DIFF, ANEU, CBC, MDW, CMP, GFR, LIP #### [address] [address] Basophils/100 WBC (Bld) 0.3 % Normal 0.0-2.5 [facility] Comment on above: Performed By: #### A DIFF, ANEU, CBC, MDW, CMP, GFR, LIP #### [address] [address] Eosinophil, Absolute 0.1 10 3/mcL Normal 0.0-0.7 [facility] Comment on above: Performed By: #### A DIFF, ANEU, CBC, MDW, CMP, GFR, LIP #### [address] [address] Eosinophils/100 WBC (Bld) 1.0 % Normal 0.0-6.0 [facility] Comment on above: Performed By: #### A DIFF, ANEU, CBC, MDW, CMP, GFR, LIP #### [address] [address] Lymphocyte, Absolute 1.7 10 3/mcL Normal 0.9-4.3 [facility] Comment on above: Performed By: #### A DIFF, ANEU, CBC, MDW, CMP, GFR, LIP #### [address] [address] Lymphocytes/100 WBC (Bld) 15.6 % Low 20.0-40.0 [facility] Comment on above: Performed By: #### A DIFF, ANEU, CBC, MDW, CMP, GFR, LIP #### [address] [address] Monocyte, Absolute 0.9 10 3/mcL Normal 0.1-1.4 [facility] Comment on above: Performed By: #### A DIFF, ANEU, CBC, MDW, CMP, GFR, LIP #### [place] [id number] [place], [place] [address] Monocytes/100 WBC (Bld) 8.3 % Normal 2.0-13.0 [facility] Comment on above: Performed By: #### A DIFF, ANEU, CBC, MDW, CMP, GFR, LIP #### [place] [id number] [place], [place] [address] Neutrophils/100 WBC (Bld) 74.8 % Normal 50.0-75.0 [facility] Comment on above: Performed By: #### A DIFF, ANEU, CBC, MDW, CMP, GFR, LIP #### [address] [address] .GFRon 03-27-2025 Estimated Glomerular Filtration Rate 98 ml/min/1.73sqm Normal [facility] Comment on above: Result Comment: Stages of Chronic Kidney Disease (CKD) Stage Description eGFR(ml/min/1.73 sq.m.) CKD 1 Normal kidney function or >=90 normal kindney function with possible kidney damage (ex. Proteinuria) CKD 2 Kidney damage with mild loss 60-89 of kidney function CKD 3a Mild to moderate loss of kidney 45-59 function CKD 3b Moderate to severe loss of 30-44 of kindey function CKD 4 Severe loss of kidney function 15-29 CKD 5 Kidney failure <15 Note: (go live 2024) the eGFR calculation was updated to the 2020 CKD-EPI creatinine equation without a race factor to calculate the eGFR results. Performed By: #### C TPCR, CVTV, NGPCR1, BVPCR #### [address] [address] .MDWon 03-27-2025 Monocyte Distribution Width 16.72 Normal 0.00-20.00 [facility] Comment on above: Result Comment: For ED adult patients suspected of sepsis, MDW<=20.0 does not rule out sepsis or risk of sepsis Performed By: #### C TPCR, CVTV, NGPCR1, BVPCR #### [address] [address] .NEUABSon 03-27-2025 Neutrophil, Absolute 8.3 10 3/mcL High 2.3-8.1 [facility] Comment on above: Performed By: #### A DIFF, ANEU, CBC, MDW, CMP, GFR, LIP #### [address] [address] CBCon 03-27-2025 Erythrocyte distribution width (RBC) [Ratio] 14.7 % Normal 11.5-15.5 [facility] Comment on above: Performed By: #### A DIFF, ANEU, CBC, MDW, CMP, GFR, LIP #### [place] [address] Hematocrit (Bld) [Volume fraction] 47.1 % High 34.0-46.0 [facility] Comment on above: Performed By: #### A DIFF, ANEU, CBC, MDW, CMP, GFR, LIP #### [place] [address] Hgb 15.8 G/dL Normal 12.0-16.0 [facility] Comment on above: Performed By: #### A DIFF, ANEU, CBC, MDW, CMP, GFR, LIP #### [place] [id number] MCH (RBC) [Entitic mass] 27.7 pg Normal 27.0-33.0 [facility] Comment on above: Performed By: #### A DIFF, ANEU, CBC, MDW, CMP, GFR, LIP #### [place] [address] MCHC 33.6 G/dL Normal 32.0-36.0 [facility] Comment on above: Performed By: #### A DIFF, ANEU, CBC, MDW, CMP, GFR, LIP #### [place] [address] MCV (RBC) [Entitic vol] 82.4 fL Normal 80.0-99.0 [facility] Comment on above: Performed By: #### A DIFF, ANEU, CBC, MDW, CMP, GFR, LIP #### [address] [address] Platelet 332 10 3/mcL Normal 150-450 [facility] Comment on above: Performed By: #### A DIFF, ANEU, CBC, MDW, CMP, GFR, LIP #### [address] [address] Platelet mean volume (Bld) [Entitic vol] 8.0 fL Normal 6.6-10.5 [facility] Comment on above: Performed By: #### A DIFF, ANEU, CBC, MDW, CMP, GFR, LIP #### [address] [address] RBC 5.71 10 6/mcL High 4.10-5.30 [facility] Comment on above: Performed By: #### A DIFF, ANEU, CBC, MDW, CMP, GFR, LIP #### [address] [address] WBC 11.0 10 3/mcL High 4.5-10.8 [facility] Comment on above: Performed By: #### A DIFF, ANEU, CBC, MDW, CMP, GFR, LIP #### [address] [address] CMPon 03-27-2025 Albumin Level 4.2 G/dL Normal 3.5-5.0 [facility] Comment on above: Performed By: #### C TPCR, CVTV, NGPCR1, BVPCR #### [address] [address] Albumin/Globulin [Mass ratio] 1.2 {ratio} Normal 1.1-2.5 [facility] Comment on above: Performed By: #### C TPCR, CVTV, NGPCR1, BVPCR #### [address] [address] ALP [Catalytic activity/Vol] 140 U/L High 40-135 [facility] Comment on above: Performed By: #### C TPCR, CVTV, NGPCR1, BVPCR #### [address] [address] ALT [Catalytic activity/Vol] 36 U/L Normal 14-59 [facility] Comment on above: Performed By: #### C TPCR, CVTV, NGPCR1, BVPCR #### [place] [id number] AST [Catalytic activity/Vol] 16 U/L Normal 10-40 [facility] Comment on above: Performed By: #### C TPCR, CVTV, NGPCR1, BVPCR #### [place] [address] Bili Total 0.6 mg/dL Normal 0.2-1.0 [facility] Comment on above: Result Comment: Use of this assay is not recommended for patients undergoing treatment with eltrombopag due to the potential for falsely elevated results. Performed By: #### C TPCR, CVTV, NGPCR1, BVPCR #### [place] [address] BUN/Creatinine Ratio 17 ratio Normal 7-27 [facility] Comment on above: Performed By: #### C TPCR, CVTV, NGPCR1, BVPCR #### [place] [address] Calcium [Mass/Vol] 9.4 mg/dL Normal 8.4-10.2 [facility] Comment on above: Performed By: #### C TPCR, CVTV, NGPCR1, BVPCR #### [place] [id number] Chloride [Moles/Vol] 100 mmol/L Normal 98-107 [facility] Comment on above: Performed By: #### C TPCR, CVTV, NGPCR1, BVPCR #### [place] [id number] CO2 [Moles/Vol] 25 mmol/L Normal 22-29 [facility] Comment on above: Performed By: #### C TPCR, CVTV, NGPCR1, BVPCR #### [place] [address] Creatinine [Mass/Vol] 0.75 mg/dL Normal 0.51-0.95 [facility] Comment on above: Performed By: #### C TPCR, CVTV, NGPCR1, BVPCR #### [address] [address] Electrolyte Balance 11.0 mEq/L Normal 4.0-15.0 [facility] Comment on above: Performed By: #### C TPCR, CVTV, NGPCR1, BVPCR #### [address] [address] Globulin 3.6 G/dL Normal 2.7-4.4 [facility] Comment on above: Performed By: #### C TPCR, CVTV, NGPCR1, BVPCR #### [address] [address] Glucose [Mass/Vol] 127 mg/dL High 70-105 [facility] Comment on above: Performed By: #### C TPCR, CVTV, NGPCR1, BVPCR #### [address] [address] Potassium [Moles/Vol] 3.8 mmol/L Normal 3.5-5.1 [facility] Comment on above: Performed By: #### C TPCR, CVTV, NGPCR1, BVPCR #### [address] [address] Sodium [Moles/Vol] 136 mmol/L Normal 136-145 [facility] Comment on above: Performed By: #### C TPCR, CVTV, NGPCR1, BVPCR #### [address] [address] Total Protein 7.8 G/dL Normal 6.4-8.2 [facility] Comment on above: Performed By: #### C TPCR, CVTV, NGPCR1, BVPCR #### [address] [address] Urea nitrogen [Mass/Vol] 13 mg/dL Normal 7-18 [facility] Comment on above: Performed By: #### C TPCR, CVTV, NGPCR1, BVPCR #### [facility] [address] [place] [address] CT ABDOMEN/PELVIS W/O CONTRA Errol 03-27-2025 CT ABDOMEN/PELVIS W/O CONTRAST ORIGINAL EXAMINATION: CT OF THE ABDOMEN AND PELVIS WITHOUT CONTRAST03/27/2025 5:54 am TECHNIQUE: CT of the abdomen and pelvis was performed without the administration of intravenous contrast. Multiplanar reformatted images are provided for review. Automated exposure control, iterative reconstruction, and/or weight based adjustment of the mA/kV was utilized to reduce the radiation dose to as low as reasonably achievable. COMPARISON: None HISTORY: ORDERING SYSTEM PROVIDED HISTORY: Reason for Exam: Abdominal pain, acute, nonlocalized FINDINGS: 0.3 cm solid nodule at left lung base, no follow-up is necessary. Tree-in-bud nodular opacities in bilateral lung bases. No significant pleural or pericardial effusion.. The liver, adrenal glands, and pancreas are within normal limits. Splenic calcified granulomas.. Gallbladder is unremarkable. The kidneys are unremarkable. Urinary bladder is unremarkable. The large and small bowel demonstrate no obstruction. Mild colonic diverticulosis without diverticulitis. The appendix is normal. No free intraperitoneal fluid or gas is identified. The aorta is normal in caliber. There is no lymphadenopathy. Right adnexal cyst measuring 4.5 cm. Uterus and left adnexa are unremarkable. The abdominal wall is unremarkable. There is no acute fracture or aggressive osseous lesion. IMPRESSION: No acute abdominopelvic abnormality. Mild colonic diverticulosis without diverticulitis. Right adnexal cyst measuring 4.5 cm. No follow-up is necessary. Tree-in-bud nodular opacities in bilateral lung bases, suspect infectious/inflammator y bronchiolitis. I have personally reviewed the images of this examination and agree with the resident's findings and interpretation. RECOMMENDATIONS: Right adnexal simple-appearing cyst measuring 4.5 cm. No follow-up imaging is recommended. Reference: JACR 2019;17(2):248-254 Left solid pulmonary nodule measuring 3 mm. Per Fleischner Society Guidelines, no routine follow-up imaging is recommended. These guidelines do not apply to immunocompromised patients and patients with cancer. Follow up in patients with significant comorbidities as clinically warranted. For lung cancer screening, adhere to Lung-RADS guidelines. Reference: Radiology. 2017; 284(1):228-43. Interpreted by: Court Sanon MD Preliminary Report By: Juan Moon Electronically signed By Court Sanon MD Dictated Date: 03/27/2025 5:58:14 AM Prelim Date: 03/27/2025 6:02:50 AM Sign Date: 03/27/2025 6:48:04 AM Ordering Provider: BJ Garcia [facility] LABORATORYOrdered By: SYSTEM SYSTEM on 03-27-2025 Albumin BCP dye [Mass/Vol] 4.2 G/dL Normal 3.5 - 5.0 G/dL AO ADM SS Albumin/Globulin [Mass ratio] 1.2 {ratio} Normal 1.1 - 2.5 ratio AO ADM SS ALP [Catalytic activity/Vol] 140 U/L High 40 - 135 U/L AO ADM SS ALT With P-5'-P [Catalytic activity/Vol] 36 U/L Normal 14 - 59 U/L AO ADM SS AST With P-5'-P [Catalytic activity/Vol] 16 U/L Normal 10 - 40 U/L AO ADM SS Basophils (Bld) [#/Vol] 0.0 103/mcL Normal 0.0 - 0.3 10^3/mcL AO Workflow SS Basophils/100 WBC (Bld) 0.3 % Normal 0.0 - 2.5 % AO Workflow SS Bilirubin [Mass/Vol] 0.6 mg/dL Normal 0.2 - 1 .0 mg/dL AO ADM SS Comment on above: Interpretive Data: U se of this assay is not recommended for patients undergoing treatment with eltrombopag due to the potential for falsely elevated results. Calcium [Mass/Vol] 9.4 mg/dL Normal 8.4 - 10. 2 mg/dL AO ADM SS Chloride [Moles/Vol] 100 mmol/L Normal 98 - 10 7 mmol/L AO ADM SS CO2 [Moles/Vol] 25 mmol/L Normal 22 - 29 mmol/L AO ADM SS Creatinine [Mass/Vol] 0.75 mg/dL Normal 0.51 - 0.95 mg/dL AO ADM SS Electrolyte Balance 11.0 mEq/L Normal 4.0 - 15 .0 mEq/L AO ADM SS Eosinophil, Absolute 0.1 103/mcL Normal 0.0 - 0 .7 10^3/mcL AO Workflow SS Eosinophils/100 WBC (Bld) 1.0 % Normal 0.0 - 6.0 % AO Workflow SS Erythrocyte distribution width (RBC) [Ratio] 14.7 % Normal 11.5 - 15.5 % AO Workflow SS Estimated Glomerular Filtration Rate 98 ml/min/1.73sqm Invalid Interpretation Code AO Chemistry S Comment on above: Interpretive Data: Stages of Chronic Kidney Disease (CKD) Stage Description eGFR(ml/min/1.73 sq.m.) CKD 1 Normal kidney function or >=90 normal kindney function with possible kidney damage (ex. Proteinuria) CKD 2 Kidney damage with mild loss 60-89 of kidney function CKD 3a Mild to moderate loss of kidney 45-59 function CKD 3b Moderate to severe loss of 30-44 of kindey function CKD 4 Severe loss of kidney function 15-29 CKD 5 Kidney failure <15 Note: (go live 2024) the eGFR calculation was updated to the 2020 CKD-EPI creatinine equation without a race factor to calculate the eGFR results. Globulin 3.6 G/dL Normal 2.7 - 4.4 G/dL AO ADM SS Glucose [Mass/Vol] 127 mg/dL High 70 - 105 mg/dL AO ADM SS Hematocrit (Bld) [Volume fraction] 47.1 % High 34.0 - 46.0 % AO Workflow SS Hemoglobin (Bld) [Mass/Vol] 15.8 G/dL Normal 12.0 - 16.0 G/dL AO Workflow SS Lipase [Catalytic activity/Vol] 25 U/L Normal 16 - 77 U/L AO ADM SS Lymphocytes (Bld) [#/Vol] 1.7 103/mcL Normal 0.9 - 4.3 10^3/mcL AO Workflow SS Lymphocytes/100 WBC (Bld) 15.6 % Low 20.0 - 40.0 % AO Workflow SS MCH (RBC) [Entitic mass] 27.7 pg Normal 27.0 - 33.0 pg AO Workflow SS MCHC 33.6 G/dL Normal 32.0 - 36.0 G/dL AO Workflow SS MCV (RBC) [Entitic vol] 82.4 fL Normal 80.0 - 99.0 fL AO Workflow SS Monocyte distribution width Auto (Bld) [Entitic vol] 16.72 1 Normal 0.00 - 20.00 AO Workflow SS Comment on above: Result Comment: For ED adult patients suspected of sepsis, MDW<=20.0 does not rule out sepsis or risk of sepsis Monocytes (Bld) [#/Vol] 0.9 103/mcL Normal 0.1 - 1.4 10^3/mcL AO Workflow SS Monocytes/100 WBC (Bld) 8.3 % Normal 2.0 - 13.0 % AO Workflow SS Neutrophils (Bld) [#/Vol] 8.3 103/mcL High 2.3 - 8.1 10^3/mcL AO Workflow SS Neutrophils/100 WBC (Bld) 74.8 % Normal 50.0 - 75.0 % AO Workflow SS Platelet mean volume (Bld) [Entitic vol] 8.0 fL Normal 6.6 - 10.5 fL AO Workflow SS Platelets (Bld) [#/Vol] 332 103/mcL Normal 150 - 450 10^3/mcL AO Workflow SS Potassium [Moles/Vol] 3.8 mmol/L Normal 3.5 - 5.1 mmol/L AO ADM SS Protein [Mass/Vol] 7.8 G/dL Normal 6.4 - 8.2 G/dL AO ADM SS RBC (Bld) [#/Vol] 5.71 106/mcL High 4.10 - 5.3 0 10^6/mcL AO Workflow SS Sodium [Moles/Vol] 136 mmol/L Normal 136 - 145 mmol/L AO ADM SS Urea nitrogen [Mass/Vol] 13 mg/dL Normal 7 - 18 mg/dL AO ADM SS Urea nitrogen/Creatinine [Mass ratio] 17 ratio Normal 7 - 27 ratio AO ADM SS WBC (Bld) [#/Vol] 11.0 103/mcL High 4.5 - 10.8 10^3/mcL AO Workflow SS LABORATORYOrdered By: Poly Cha on 03-27-2025 Appearance (U) Clear (03/27/25 4:54 AM) Normal Clear AO Auto Urine SS Bilirubin Ql (U) Negative (03/27/25 4:54 AM) Normal Negative AO Auto Urine SS Color (U) Yellow (03/27/25 4:54 AM) Normal AO Auto Urine SS Glucose Test strip (U) [Mass/Vol] Negative Normal Negative AO Auto Urine SS HCG ( test) Ql Negative (03/27/25 4:54 AM) Normal AO Manual Urine SS Hemoglobin Auto test strip (U) [Mass/Vol] Small *ABN* (03/27/25 4:54 AM) Invalid Interpretation Code Negative AO Auto Urine SS Ketones Ql (U) Negative Normal Negative AO Auto Ur ine SS test (u) int Not detected Invalid Interpretation Code AO Manual Urine SS UA Leuk Est Negative (03/27/25 4:54 AM) Normal Negative AO Auto Urine SS UA Nitrite Negative (03/27/25 4:54 AM) Normal Negative AO Auto Urine SS UA pH 6.0 (03/27/25 4:54 AM) Normal 5.0 - 8.0 AO Auto Urine SS UA Protein Negative Normal Negative AO Auto Urine SS UA RBC 0-2 /HPF Normal 0-2 AO Auto Urine SS UA Spec Grav 1.025 (03/27/25 4:54 AM) Normal 1.015-1.025 AO Auto Urine SS UA Specimen Type Clean Catch (03/27/25 4:54 AM) Normal AO Auto Urine SS UA Squam Epithelial 3-5 /HPF Normal 0-20 AO Au to Urine SS UA Urobilinogen 0.2 E.U./dL Normal 0.2-1.0 AO Auto Urine SS WBC LM.HPF (Urine sed) [#/Area] Negative Normal 0-5 AO Auto Urine SS LIPon 03-27-2025 Lipase Level 25 U/L Normal 16-77 [facility] Comment on above: Performed By: #### C TPCR, CVTV, NGPCR1, BVPCR #### [facility] [address] [place] [id number] PREGUon 03-27-2025 HCG ( test) Ql (U) Negative Normal [facility] Comment on above: Performed By: #### P REGU, UA, UAMIC #### [address] [address] test (u) int Not detected Invalid Interpretation Code [facility] Comment on above: Performed By: #### P REGU, UA, UAMIC #### [address] [address] UAon 03-27-2025 Color (U) Yellow Normal [facility] Comment on above: Performed By: #### P REGU, UA, UAMIC #### [place] [address] Glucose (U) [Mass/Vol] Negative Normal Negative [facility] Comment on above: Performed By: #### P REGU, UA, UAMIC #### [place] [address] Ketones Ql (U) Negative Normal Negative [facility] Comment on above: Performed By: #### P REGU, UA, UAMIC #### [place] [address] UA Appear Clear Normal Clear [facility] Comment on above: Performed By: #### P REGU, UA, UAMIC #### [place] [address] UA Blood Small Abnormal Negative [facility] Comment on above: Performed By: #### P REGU, UA, UAMIC #### [place] [address] UA Leuk Est Negative Normal Negative [facility] Comment on above: Performed By: #### P REGU, UA, UAMIC #### [place] [address] UA Nitrite Negative Normal Negative [facility] Comment on above: Performed By: #### P REGU, UA, UAMIC #### [place] [address] UA pH 6.0 Normal 5.0 - 8.0 [facility] Comment on above: Performed By: #### P REGU, UA, UAMIC #### [place] [address] UA Protein Negative Normal Negative [facility] Comment on above: Performed By: #### P REGU, UA, UAMIC #### [place] [address] UA Spec Grav 1.025 Normal 1.015-1.025 [facility] Comment on above: Performed By: #### P REGU, UA, UAMIC #### [place] [address] UA Specimen Type Clean Catch Normal [facility] Comment on above: Performed By: #### P REGU, UA, UAMIC #### [address] [address] UA Urobilinogen 0.2 E.U./dL Normal 0.2-1.0 [facility] Comment on above: Performed By: #### P REGU, UA, UAMIC #### [address] [address] Urobilinogen (U) [Mass/Vol] Negative Normal Negative [facility] Comment on above: Performed By: #### P REGU, UA, UAMIC #### [address] [address] UAMICon 03-27-2025 UA RBC 0-2 Normal 0-2 [facility] Comment on above: Performed By: #### P REGU, UA, UAMIC #### [address] [address] UA Squam Epithelial 3-5 Normal 0-20 [facility] Comment on above: Performed By: #### P REGU, UA, UAMIC #### [place] [id number] UA WBC Negative Normal 0-5 [facility] Comment on above: Performed By: #### P REGU, UA, UAMIC #### [address] [address] 36on 03-26-2025 36 Pt called in requesting to be seen today. She stated she has mold in her home and has been sleeping in her car for the last couple days- she stated she has a productive cough, sob, and is wheezing. Went to the ED 03/23/25 and stated they did a chest xray and gave her a rescue inhaler but her symptoms are no better. I offered an appt tomorrow as we have no physicians in today. She stated I cannot wait till tomorrow . She stated she will go to any location just to be seen as she is panicking. Offered appt with Dr. Valladares today @ [facility] 9:45am. Normal [facility] 37on 03-26-2025 37 YOUR APPOINTMENT TOAshwini HOWARD WAS WITH THE [facility] LUNG NODULE [facility], COPD CLINIC, PULMONARY AND SLEEP MEDICINE OFFICE. PLEASE CALL OUR OFFICE AT [phone] for our [place] office location or [phone] for our [place] location, IF YOU HAVE NOT RECEIVED YOUR TEST RESULTS 7 DAYS AFTER TESTING IS COMPLETED. PLEASE REMEMBER TO REQUEST REFILLS AT YOUR OFFICE VISITS. PHONE/FAX REQUESTS REQUIRE 48-72 HOURS FOR RESPONSE. A FRIENDLY REMINDER COPAYS ARE DUE AT TIME OF SERVICE. THANK YOU. Our Patients Are Important! We want to improve and you can help. After your visit we want you to feel: Listened to, Respected and have your health care explained. You may receive a survey asking you about your visit. Please complete the survey. We will use your feedback to make improvements. COVID-19 VACCINATION INFORMATION: PH. [phone] [email or web address] /VACCINE [facility] Central Scheduling [phone] [facility] Sleep Scheduling [phone] [facility] [place] Office Visiton 03-26-2025 Follow-up visit [id number] Mercedes Flores 1975 F Date Provider Department Center 03/26/2025 [id number]-FRYSHENJONY MESSINA SHMGMITMARÍA None Family History Problem Relation Age of Onset Acute lymphoblastic leukemia Father 31 Cancer Father Depression Father Early natural Father Leukemia Father's Brother Comments: LLC? Lung cancer Father's Brother Arthritis Mother Asthma Mother Depression Mother Heart disease Mother Hypertension Mother Arthritis Maternal Grandfather Asthma Maternal Grandfather Hearing loss Maternal Grandfather Heart disease Maternal Grandfather Hyperlipidemia Maternal Grandfather Hypertension Maternal Grandfather Arthritis Maternal Grandmother Depression Maternal Grandmother Diabetes Maternal Grandmother Heart disease Maternal Grandmother Hyperlipidemia Maternal Grandmother Hypertension Maternal Grandmother Arthritis Paternal Grandfather Cancer Paternal Grandfather Depression Paternal Grandfather Heart disease Paternal Grandfather Hyperlipidemia Paternal Grandfather Hypertension Paternal Grandfather Arthritis Paternal Grandmother Cancer Paternal Grandmother Depression Paternal Grandmother Diabetes Paternal Grandmother Heart disease Paternal Grandmother Hypertension Paternal Grandmother Miscarriages / Stillbirths Paternal Grandmother Stroke Paternal Grandmother Arthritis Brother Depression Brother Hypertension Brother Arthritis Other Diabetes Other Hearing loss Other Heart disease Other Hypertension Other Cancer Other Early natural Other Depression Sister Miscarriages / Stillbirths Sister Motion Sickness Sister Depression Other Early natural Other Kidney disease Other Miscarriages / Stillbirths Other Motion Sickness Other Family Status - Relation Status Age at Father Father's Brother Father's Brother Mother Alive Maternal Grandfather Alive Maternal Grandmother Alive Paternal Grandfather Alive Paternal Grandmother Alive Brother Alive Other Alive Other Alive Sister Alive Other Alive Other Alive Other Alive Other Alive Other Alive Level of Service:20819 OR OFFICE/OUTPATIENT NEW MODERATE MDM 45 MINUTES Reason for Visit and Comments: New Patient [542] Cough [28] - Yellow thick Wheezing [537540] Shortness of Breath [503938] Other [0] - Fingers are tingling,fever Normal [facility] Progress Noteon 03-26-2025 Progress Note [facility]- Pulmonary and Sleep Medicine [address] , [place] [address] PH: [phone] Visit type: A New Patient 03/26/2025 CHIEF COMPLAINT/REASON FOR REFERRAL: Chief Complaint Patient presents with New Patient Cough Yellow thick Wheezing Shortness of Breath Other Fingers are tingling,fever History of Present Illness Josselyn Flores is a 49 y.o. female with history of Neeraj's thyroiditis, went to the emergency room with complaints of shortness of breath she was discharged home after chest x-ray was done in the emergency room chest x-ray done on 24 May 2025 interpreted by me did not show any acute infiltrates patient states that she has had mold exposure. Patient states that she had a new well developed water is reportedly contaminated with magnesium which is damaging the water pipes with leaking into the house and reportedly has mold infestation into her house(penicillium) currently she has moved to a hotel She was diagnosed with Neeraj's thyroiditis 3 years ago She was also being managed for idiopathic hypersomnia by Dr. Rick is supposed to see Dr. Brooks next week Pneumonia vaccine: recommended Seasonal flu vaccine: refused COVID vaccine: initial RSV vaccine: NE MMRC Dyspnea Scale: Grade Description of Breathlessness 0 I only get breathless with strenuous exercise. 1 I get short of breath when hurrying on level ground or walking up a slight hill. 2 On level ground, I walk slower than people of the same age because of breathlessness, or have to stop for breath when walking at my own pace. 3 I stop for breath after walking about 100 yards or after a few minutes on level ground. 4 I am too breathless to leave the house or I am breathless when dressing. PastMedical History Medical History[1] Past Surgical History Surgical History[2] Allergies Allergies[3] Medications Current Medications[4] Social History Social History Tobacco Use Smoking status: Former Current packs/day: 0.00 Average packs/day: 1 pack/day for 37.0 years (37.0 ttl pk-yrs) Types: Cigarettes Start date: 07/11/1986 Quit date: 07/11/2023 Years since quittin.7 Smokeless tobacco: Never Substance Use Topics Alcohol use: Not Currently Comment: once or twice a year FamilyHistory Family History[5] Review of Systems Review of Systems Constitutional: Positive for fatigue. Respiratory: Positive for cough, shortness of breath and wheezing. Physical Exam Vitals: 03/26/25 0952 03/26/25 1000 BP: (!) 160/82 (!) 148/84 Pulse: 101 SpO2: 96% Weight: 192 lb (87.1 kg) Height: 5' 6 (1.676 m) Physical Exam Vitals reviewed. Constitutional: Appearance: She is obese. Cardiovascular: Rate and Rhythm: Normal rate and regular rhythm. Pulses: Normal pulses. Heart sounds: Normal heart sounds. Pulmonary: Effort: Pulmonary effort is normal. Breath sounds: Wheezing and rhonchi present. Musculoskeletal: Cervical back: Normal range of motion and neck supple. Neurological: Mental Status: She is alert. Psychiatric: Mood and Affect: Mood normal. Behavior: Behavior normal. Data Reviewed and Summarized LABS and Studies: Available studies were personally reviewed. Salient findings summarized in HPI & A/P Imaging: Available studies were personally reviewed. Salient findings summarized in HPI & A/P PFT's: Pulmonary Functions Testing Results: No results found for: FEV1, FVC, EUU2DWX, TLC, DLCO Assessment and Plan 1. Hypersensitivity pneumonia (CMS/HCC) ([facility]) (Primary) Patient provided with sample of high-dose Trelegy inhaler continue with as needed albuterol, await results of allergy panel and CBC - Respiratory Allergy Panel Region V with Reflex; Future - Complete PFT pre and post bronchodilator with FENO; Future - CBC auto differential; Future - Respiratory Allergy Panel Region V with Reflex - CBC auto differential 2. Subacute cough Most likely related to above - Respiratory Allergy Panel Region V with Reflex; Future - Complete PFT pre and post bronchodilator with FENO; Future - CBC auto differential; Future - Respiratory Allergy Panel Region V with Reflex - CBC auto differential 3. History of idiopathic hypersomnia patient currently on Adderall advised to follow-up with Dr. Brooks 4. Elevated blood pressures, advised to monitor blood pressures closely if persistently high follow-up with PCP 5. Obesity BMI 30.99 kg/m?-would benefit from weight loss Jony Valladares MD Pulmonary, Critical Care, & Sleep Medicine Portions of the information within this encounter were entered using an electronic dictation system. Best attempts were made to edit/proofread the information prior to note completion. Despite the review of information, some errors may remain. If there are questions related to the information contained within the note please contact the [1] Past Medical History: D (more content not included)... Normal [facility] CBC W Auto Differential pane l (Bld)on 03-23-2025 Basophils (Bld) [#/Vol] 0 10*3/uL 0.0 - 0.2 10*3/uL [employer] [facility] Basophils/100 WBC (Bld) 0.1 % 0.0 - 2.0 % [facility] Eosinophils (Bld) [#/Vol] 0.1 10*3/uL 0.0 - 0.5 10*3/uL [employer] [facility] Eosinophils/100 WBC (Bld) 1.8 % 0.0 - 6.0 % [employer] [facility] Erythrocyte distribution width (RBC) [Ratio] 14 % 11.5 - 15.0 % [employer] [facility] Hematocrit (Bld) [Volume fraction] 45.1 % 35.0 - 47.0 % [employer] [facility] Hemoglobin (Bld) [Mass/Vol] 15 g/dL 11.7 - 16.0 g/dL [employer] [facility] Immature granulocytes (Bld) [#/Vol] 0 10*3/uL NINF - 0.1 10*3/uL [employer] [facility] Immature granulocytes/100 WBC (Bld) 0.1 % 0.0 - 2.0 % [facility] Interpretation and review of laboratory results Abnormal [facility] Lymphocytes (Bld) [#/Vol] 1.5 10*3/uL 1.0 - 4.3 10*3/uL [facility] Lymphocytes/100 WBC (Bld) 22.4 % 15.0 - 45.0 % [facility] MCH (RBC) [Entitic mass] 27.6 pg 26.0 - 34.0 pg [facility] MCHC (RBC) [Mass/Vol] 33.3 % 30.5 - 36.0 % [facility] MCV (RBC) [Entitic vol] 82.9 fL 77.0 - 99.0 fL [facility] Monocytes (Bld) [#/Vol] 0.7 10*3/uL 0.0 - 0.9 10*3/uL [facility] Monocytes/100 WBC (Bld) 10.1 % 5.0 - 13.0 % [facility] Neutrophils (Bld) [#/Vol] 4.4 10*3/uL 1.8 - 7.5 10*3/uL [facility] Neutrophils/100 WBC (Bld) 65.5 % 38.0 - 82.0 % [facility] Nucleated RBC/100 WBC (Bld) [Ratio] 0 % [facility] Platelet mean volume (Bld) [Entitic vol] 10.2 fL 9.0 - 12.7 fL [facility] Platelets (Bld) [#/Vol] 278 10*3/uL 140 - 440 10*3/uL [facility] RBC (Bld) [#/Vol] 5.44 10*6/uL High 3.80 - 5.2 0 10*6/uL [facility] WBC (Bld) [#/Vol] 6.8 10*3/uL 3.6 - 10.7 10*3/uL [facility] CBC WITH AUTO DIFFERENTIALon 03-23-2025 Basophils (Bld) [#/Vol] 0.0 10*3/uL Normal 0.0-0.2 [facility] Comment on above: Performed By: #### L [id number] ####[employer]: PRASHANTH SHEFFIELD ([id number])[facility] ([facility])[address] [place] [address] Basophils/100 WBC (Bld) 0.1 % Normal 0.0-2.0 [facility] Comment on above: Performed By: #### L [id number] ####[employer]: PRASHANTH SHEFFIELD ([id number])[facility] ([facility])[address] Eosinophils (Bld) [#/Vol] 0.1 10*3/uL Normal 0.0-0.5 [facility] Comment on above: Performed By: #### L [id number] ####[employer]: PRASHANTH SHEFFIELD ([id number])[facility] [place] ([facility])[address] Eosinophils/100 WBC (Bld) 1.8 % Normal 0.0-6.0 [facility] Comment on above: Performed By: #### L [id number] ####[employer]: PRASHANTH SHEFFIELD ([id number])[facility])[address] Erythrocyte distribution width (RBC) [Ratio] 14.0 % Normal 11.5-15.0 [facility] Comment on above: Performed By: #### L [id number] ####[employer]: PRASHANTH SHEFFIELD ([id number])[facility])[address] [place] [address] Hematocrit (Bld) [Volume fraction] 45.1 % Normal 35.0-47.0 [facility] Comment on above: Performed By: #### L [id number] ####[employer]: PRASHANTH SHEFFIELD ([id number])[facility] ([facility])[address] [place] [address] Hemoglobin (Bld) [Mass/Vol] 15.0 g/dL Normal 11.7-16.0 [facility] Comment on above: Performed By: #### L [id number] ####[employer]: PRASHANTH SHEFFIELD ([id number])[facility] ([facility])[address] IMMATURE GRANS % 0.1 % Normal 0.0-2.0 [facility] Comment on above: Performed By: #### L [id number] ####[employer]: PRASHANTH SHEFFIELD ([id number])[facility] ([facility])[address] IMMATURE GRANS ABSOLUTE 0.0 10*3/uL Normal <0.1 [facility] Comment on above: Performed By: #### L [id number] ####[employer]: PRASHANTH SHEFFIELD ([id number])[facility] ([facility])[address] Lymphocytes (Bld) [#/Vol] 1.5 10*3/uL Normal 1.0-4.3 [facility] Comment on above: Performed By: #### L [id number] ####[employer]: PRASHANTH SHEFFIELD ([id number])[facility] ([facility])[address] [place] [address] Lymphocytes/100 WBC (Bld) 22.4 % Normal 15.0-45.0 [facility] Comment on above: Performed By: #### L [id number] ####[employer]: PRASHANTH SHEFFIELD ([id number])[facility] ([facility])[address] [place] [address] MCH (RBC) [Entitic mass] 27.6 pg Normal 26.0-34.0 [facility] Comment on above: Performed By: #### L [id number] ####[employer]: PRASHANTH SHEFFIELD ([id number])[facility] ([facility])[address] [place] [address] MCHC 33.3 % Normal 30.5-36.0 [facility] Comment on above: Performed By: #### L [id number] ####Foundry Hand: PRASHANTH SHEFFIELD ([id number])[facility] (SBHLAB)[address] [place] [address] MCV (RBC) [Entitic vol] 82.9 fL Normal 77.0-99.0 [facility] Comment on above: Performed By: #### L [id number] ####Foundry Hand: PRASHANTH SHEFFIELD ([id number])[facility] [place] (SBHLAB)[address] Monocytes (Bld) [#/Vol] 0.7 10*3/uL Normal 0.0-0.9 [facility] Comment on above: Performed By: #### L [id number] ####Foundry Hand: PRASHANTH SHEFFIELD ([id number])[facility] [place] (SBHLAB)[address] Monocytes/100 WBC (Bld) 10.1 % Normal 5.0-13.0 [facility] Comment on above: Performed By: #### L [id number] ####Foundry Hand: PRASHANTH SHEFFIELD ([id number])[facility] (SBHL[facility])[address] [place] [address] NEUTROPHILS ABSOLUTE 4.4 10*3/uL Normal 1.8-7.5 [facility] Comment on above: Performed By: #### L [id number] ####Foundry Hand: PRASHANTH SHEFFIELD ([id number])[facility] [place] (SBHLAB)[address] Neutrophils/100 WBC (Bld) 65.5 % Normal 38.0-82.0 [facility] Comment on above: Performed By: #### L [id number] ####Foundry Hand: PRASHANTH SHEFFIELD ([id number])[facility] [place] (SBHLAB)[address] [place] [address] NRBC 0.0 /100 WBCs Normal 0.0-2.0 [facility] Comment on above: Performed By: #### L [id number] ####Foundry Hand: PRASHANTH SHEFFIELD ([id number])[facility] [place] (SBHLAB)[address] [place] [address] Platelet mean volume (Bld) [Entitic vol] 10.2 fL Normal 9.0-12.7 [facility] Comment on above: Performed By: #### L [id number] ####Foundry Hand: PRASHANTH SHEFFIELD ([id number])[facility] [place] (SBHLAB)[address] Platelets (Bld) [#/Vol] 278 10*3/uL Normal 140-440 [facility] Comment on above: Performed By: #### L [id number] ####Foundry Hand: PRASHANTH SHEFFIELD ([id number])[facility] [place] (SBHLAB)[address] RBC (Bld) [#/Vol] 5.44 10*6/uL High 3.80-5.20 [facility] Comment on above: Performed By: #### L [id number] ####Foundry Hand: PRASHANTH SHEFFIELD ([id number])[facility] [place] (SB[facility])[address] WBC (Bld) [#/Vol] 6.8 10*3/uL Normal 3.6-10.7 [facility] Comment on above: Performed By: #### L [id number] ####Foundry Hand: PRASHANTH SHEFFIELD ([id number])[facility] [place] (SBHL[facility])[address] COMPREHENSIVE METABOLIC PANE Aly 03-23-2025 Albumin [Mass/Vol] 3.8 g/dL Normal 3.5-5.0 [facility] Comment on above: Performed By: #### L [id number] ####Foundry Hand: PRASHANTH SHEFFIELD ([id number])[facility] [place] (SBHLAB)[address] ALP [Catalytic activity/Vol] 113 U/L Normal 40-150 [facility] Comment on above: Performed By: #### L [id number] ####Foundry Hand: PRASHANTH SHEFFIELD ([id number])[facility] [place] (SBHL[facility])[address] ALT [Catalytic activity/Vol] 28 U/L Normal <30 [facility] Comment on above: Performed By: #### L [id number] ####Foundry Hand: PRASHANTH SHEFFIELD ([id number])[facility] HOSPITALMirela BAÑ[place]ELOS[place] (SBHLAB)[address] Anion gap [Moles/Vol] 10 mmol/L Normal 3-13 [facility] Comment on above: Performed By: #### L [id number] ####Foundry Hand: PRASHANTH SHEFFIELD ([id number])[facility] (SBHLAB)[address] AST [Catalytic activity/Vol] 25 U/L Normal <34 [facility] Comment on above: Performed By: #### L [id number] ####Foundry Hand: PRASHANTH SHEFFIELD ([id number])[facility]ITALMirela [place] (SBHLAB)[address] Bilirubin [Mass/Vol] 0.4 mg/dL Normal <1.2 [facility] Comment on above: Performed By: #### L [id number] ####Foundry Hand: PRASHANTH SHEFFIELD ([id number])[facility] (SBHL[facility])[address] Calcium [Mass/Vol] 9.3 mg/dL Normal 8.4-10.2 [facility] Comment on above: Performed By: #### L [id number] ####Foundry Hand: PRASHANTH SHEFFIELD ([id number])[facility] [place] (SBHLAB)[address] [place] [address] [place] Chloride [Moles/Vol] 109 mmol/L High 98-107 [facility] Comment on above: Performed By: #### L [id number] ####Foundry Hand: PRASHANTH SHEFFIELD ([id number])[facility] [place] (SBHLAB)[address] CO2 [Moles/Vol] 22 mmol/L Normal 22-29 [facility] Comment on above: Performed By: #### L [id number] ####Foundry Hand: PRASHANTH SHEFFIELD ([id number])[facility]OS[facility]ITALMirela [place] (SBHLAB)[address] Creatinine [Mass/Vol] 0.79 mg/dL Normal 0.57-1.11 [facility] Comment on above: Performed By: #### L [id number] ####Foundry Hand: PRASHANTH SHEFFIELD ([id number])[facility]OSPITALMirela PATINOBANNER [facility] (SBHLAB)[address] GLOMERULAR FILTRATION RATE ML/MIN/1.73 SQ M.PREDICTED >90.0 Normal >60.0 [facility] Comment on above: Result Comment: Calc ulation based on the Chronic Kidney Disease Epidemiology Collaboration (CKD-EPI) equation refit without adjustment for race Performed By: #### L [id number] ####Foundry Hand: PRASHANTH SHEFFIELD ([id number])[facility]OS[facility]ITALMirela PATINOBANNER [facility] (SBHLAB)[address] Glucose [Mass/Vol] 100 mg/dL Normal 74-100 [facility] Comment on above: Performed By: #### L [id number] ####Foundry Hand: PRASHANTH SHEFFIELD ([id number])[facility] (SBHLAB)[address] [place] [address] [place] Potassium [Moles/Vol] 4.6 mmol/L Normal 3.5-5.1 [facility] Comment on above: Result Comment: [facility] potassium values may be up to 0.5 mmol/L lower than serum values. Performed By: #### L [id number] ####Foundry Hand: PRASHANTH SHEFFIELD ([id number])[facility] SUKUMARBAN[facility] (SBHLAB)[address] [place] [address] [place] Protein [Mass/Vol] 7.2 g/dL Normal 6.4-8.3 [facility] Comment on above: Performed By: #### L [id number] ####Foundry Hand: PRASHANTH SHEFFIELD ([id number])[facility] SUKUMARBANNER [facility] (SBHLAB)[address] [place] [address] [place] Sodium [Moles/Vol] 141 mmol/L Normal 136-145 [facility] Comment on above: Performed By: #### L [id number] ####Foundry Hand: PRASHANTH SHEFFIELD ([id number])[facility] SUKUMARBANNER [facility] (SBHLAB)[address] Urea nitrogen [Mass/Vol] 11 mg/dL Normal 8-21 [facility] Comment on above: Performed By: #### L [id number] ####Foundry Hand: PRASHANTH SHEFFIELD ([id number])[facility] SUKUMARBANNER [facility]ARD[facility] (SBHLAB)[address] COVID-19, Flu A/B, and RSV C omboon 03-23-2025 Interpretation and review of laboratory results Normal [facility] Comprehensive metabolic 1998 panelon 03-23-2025 Albumin [Mass/Vol] 3.8 g/dL 3.5 - 5.0 g/dL [facility] ALP [Catalytic activity/Vol] 113 U/L 40 - 150 U/L [facility] ALT [Catalytic activity/Vol] 28 U/L NINF - 30 U/L [facility] Anion gap [Moles/Vol] 10 mmol/L 3 - 13 mmol/L [facility] AST [Catalytic activity/Vol] 25 U/L NINF - 34 U/L [facility] Bilirubin [Mass/Vol] 0.4 mg/dL [facility] mg/dL [facility] Calcium [Mass/Vol] 9.3 mg/dL 8.4 - 10. 2 mg/dL [facility] Chloride [Moles/Vol] 109 mmol/L High 98 - 10 7 mmol/L [facility] CO2 [Moles/Vol] 22 mmol/L 22 - 29 mmol/L [facility] Creatinine [Mass/Vol] 0.79 mg/dL 0.57 - 1.11 mg/dL [facility] GFR/1.73 sq M.predicted (S/P/Bld) [Vol rate/Area] - PINF [facility] Comment on above: Calculation based on the Chronic Kidney Disease Epidemiology Collaboration (CKD-EPI) equation refit without adjustment for race Glucose [Mass/Vol] 100 mg/dL 74 - 100 mg/dL [facility] Interpretation and review of laboratory results Abnormal [facility] Potassium [Moles/Vol] 4.6 mmol/L 3.5 - 5.1 mmol/L [facility] Comment on above: Plasma potassium kieran ues may be up to 0.5 mmol/L lower than serum values. Protein [Mass/Vol] 7.2 g/dL 6.4 - 8.3 g/dL [facility] Sodium [Moles/Vol] 141 mmol/L 136 - 145 mmol/L [facility] Urea nitrogen [Mass/Vol] 11 mg/dL 8 - 21 mg/dL [facility] ED Provider Noteon ED Provider Note [facility] ED eMERGENCY dEPARTMENT eNCOUnter Pt Name: Josselyn Flores Birthdate 1975 Date of evaluation: 03/23/2025 Provider: Annabelle Morillo PA-C CHIEF COMPLAINT Chief Complaint Patient presents with Shortness of Breath Pt arrived to triage for thinking she has pneumonia, pt endorses mold exposure, and chest cold with productive cough. HISTORY OF PRESENT ILLNESS (Location/Symptom, Timing/Onset,Context/S etting, Quality, Duration, Modifying Factors, Severity) Note limiting factors. HPI Josselyn Flores is a 49 y.o. female who presents to the emergency department complaining of a productive cough with wheezing and shortness of breath. She states that she is exposed to thick mold in her home. She states symptoms have been worsening over the past few days. She states that she thinks she has pneumonia. Nursing Notes were reviewed. REVIEW OF SYSTEMS (2+ for4; 10+ for level 5) Review of Systems Constitutional: Negative for chills and fever. HENT: Negative for ear pain and sore throat. Eyes: Negative for pain and visual disturbance. Respiratory: Positive for cough, shortness of breath and wheezing. Cardiovascular: Negative for chest pain and palpitations. Gastrointestinal: Negative for abdominal pain and vomiting. Genitourinary: Negative for dysuria and hematuria. Musculoskeletal: Negative for arthralgias and back pain. Skin: Negative for color change and rash. Neurological: Negative for seizures and syncope. All other systems reviewed and are negative. PAST MEDICAL HISTORY Medical History[1] SURGICALHISTORY Surgical History[2] CURRENT MEDICATIONS Discharge Medication List as of 03/23/2025 11:08 AM CONTINUE these medications which have NOT CHANGED Details amphetamine-dextroamph etamine (Adderall) 30 MG tablet Take 30 mg by mouth daily., Historical Med amphetamine-dextroamph etamine XR (Adderall XR) 30 MG 24 hr capsule Take 30 mg by mouth every morning. Do not crush or chew., Historical Med [place] Thyroid 30 MG tablet Every 24 hours., Historical Med B Complex Vitamins (B COMPLEX PO) Take by mouth., Historical Med bisoprolol (Zebeta) 5 MG tablet Every 24 hours., Starting Wed02/18/2024, Historical Med CHELATED MAGNESIUM PO Take by mouth., Historical Med CHELATED ZINC PO Take by mouth., Historical Med cholecalciferol (Vitamin D-3) 125 MCG (5000 UT) capsule Take 1 capsule by mouth Every 24 hours., Historical Med COPPER PO Take by mouth., Historical Med LYSINE PO Take by mouth., Historical Med OIL OF [place] PO Take by mouth., Historical Med omega-3 (fish oil) 1000 MG capsule Take 1 capsule by mouth Every 24 hours., Historical Med POTASSIUM CITRATE PO Take by mouth., Historical Med [place] 150 MG tablet Take 1 tablet by mouth., Starting Wed02/06/2025, Historical Med [place] PO Take by mouth., Historical Med Vitamin D-Vitamin K (VITAMIN K2-VITAMIN D3 PO) Take by mouth., Historical Med Amlodipine, Biotin, Levothyroxine, Losartan, Metformin hcl, Penicillins, Ramipril, Sulfa antibiotics, Sulfamethoxazole-trime thoprim, Varenicline tartrate, and Sodium laureth sulfate FAMILY HISTORY Family History[3] SOCIAL HISTORY Social History[4] SCREENINGS PHYSICAL EXAM (5+ for level 4, 8+ for level 5) @EDTRIAGEVSS@ Physical Exam Vitals and nursing note reviewed. Constitutional: General: She is not in acute distress. Appearance: She is well-developed. HENT: Head: Normocephalic and atraumatic. Eyes: Conjunctiva/sclera: Conjunctivae normal. Cardiovascular: Rate and Rhythm: Normal rate and regular rhythm. Heart sounds: No murmur heard. Pulmonary: Effort: Pulmonary effort is normal. No respiratory distress. Comments: Patient has some scant expiratory wheezing increased with forced expiration. Musculoskeletal: General: No swelling. Skin: General: Skin is warm and dry. Neurological: Mental Status: She is alert and oriented to person, place, and time. Psychiatric: Mood and Affect: Mood normal. Behavior: Behavior normal. DIAGNOSTIC RESULTS EKG (Per Emergency Physician): RADIOLOGY (Per EmergencyPhysician): Interpretation per the Radiologist below, if available at the time of this note: @EDRISRSLT@ : Labs Reviewed CBC WITH AUTO DIFFERENTIAL - Abnormal Result Value Auto WBC 6.8 RBC 5.44 (*) Hemoglobin 15.0 Hematocrit 45.1 MCV 82.9 MCH 27.6 MCHC 33.3 RDW 14.0 Platelets 278 MPV 10.2 nRBC 0.0 Neutrophils Relative 65.5 Lymphocytes Relative 22.4 Monocytes Relative 10.1 Eosinophils Relative 1.8 Basophils Relative 0.1 Immature Grans % 0.1 Neutrophils Absolute 4.4 Lymphocytes Absolute 1.5 Monocytes Absolute 0.7 Eosinophils Absolute 0.1 Basophils Absolute 0.0 Immature Grans Absolute 0.0 COMPREHENSIVE METABOLIC PANEL - Abnormal SODIUM 141 POTASSIUM 4.6 CHLORIDE 109 (*) CARBON DIOXIDE 22 ANION GAP 10 UREA NITROGEN 11 CREATININE 0.79 GLUCOSE 100 CALCIUM 9.3 AST (SGOT) (more content not included)... Normal [facility] - Microbiology an d Antimicrobial susceptibilityon 03-23-2025 FLUAV RNA APRIL+probe Ql (Resp) Not detected Not Detected [facility] FLUBV RNA APRIL+probe Ql (Resp) Not detected Not Detected [facility] RSV RNA APRIL+probe Ql (Resp) Not detected Not Detected [facility] SARS-CoV-2 (COVID-19) RNA APRIL+probe Ql (Resp) Not detected Not Detected [facility] SARS-CoV-2 (COVID-19) RNA APRIL+probe Ql (Unsp spec) Methodology: real-time, RT-PCR The SARS-CoV-2, Flu A/B, and RSV Combo assay is intended for in vitro diagnostic use under the FDA Emergency Use Authorization (EUA). This test has not been FDA cleared or approved. In compliance with this authorization, please visit www.fda.gov/media/1429 35/download or www.fda.gov/media/142 36/download to access the applicable information sheets. [facility] SARS-COV-2, FLU A/B, AND RSV COMBOon 03-23-2025 SARS-CoV-2 (COVID-19) RNA APRIL+probe Ql (Unsp spec) SARS-COV-2 Reference Not Detected Not Detected RESPIRATORY SYNCYTIAL VIRUS Reference Not Detected Not Detected INFLUENZA A (CEPHEID) Reference Not Detected Not Detected INFLUENZA B (CEPHEID) Reference Not Detected Not Detected ORDER COMMENTS: Methodology: real-time, RT-PCR The SARS-CoV-2, Flu A/B, and RSV Combo assay is intended for in vitro diagnostic use under the FDA Emergency Use Authorization (EUA). This test has not been FDA cleared or approved. In compliance with this authorization, please visit www.fda.gov/media/2152 35/download or www.fda.gov/media/1428 36/download to access the applicable information sheets. Normal [facility] Comment on above: Performed By: #### L [id number] ####Foundry Hand: PRASHANTH SHEFFIELD ([id number])[facility] (SBHLAB)[address] [place] [address] XR Chest Single viewon 03-23 No acute abnormality Report Dictated on Electronically Signed By: Axel Olivera MD Electronically Signed Date/Time: 03/23/2025 9:55 AM EDT [facility] Patient Name: JOSSELYN PERSAUD : 1975 Exam Date/Time: 03/23/2025 09:42 Procedure: XR CHEST 1 VIEW Ordering Provider: MORILLO AMY Reason For Exam: COUGH; DYSPNEA PORTABLE CHEST CLINICAL INDICATION: COUGH; DYSPNEA. TECHNIQUE: Portable AP COMPARISON: None FINDINGS: The heart and mediastinum are normal. The lungs are clear. Costophrenic angles are sharp. The osseous structures are unremarkable. [facility] Axel Olivera MD - 03/23/2025 Patient Name: JOSSELYN FLORES : 1975 Exam Date/Time: 03/23/2025 09:42 Procedure: XR CHEST 1 VIEW Ordering Provider: MORILLO AMY Reason For Exam: COUGH; DYSPNEA PORTABLE CHEST CLINICAL INDICATION: COUGH; DYSPNEA. TECHNIQUE: Portable AP COMPARISON: None FINDINGS: The heart and mediastinum are normal. The lungs are clear. Costophrenic angles are sharp. The osseous structures are unremarkable. IMPRESSION: No acute abnormality Report Dictated on Electronically Signed By: Axel Olivera MD Electronically Signed Date/Time: 03/23/2025 9:55 AM EDT [facility] Radiology Study observation (narrative) [facility] XR Chest Single viewOrdered By: Axel Olivera on 03-23-2025 [facility] Work Phone: CBC W Auto Differential pane l (Bld)on 03-02-2025 Basophils (Bld) [#/Vol] 0 10*3/uL 0.0 - 0.2 10*3/uL [facility] Basophils/100 WBC (Bld) 0.2 % 0.0 - 2.0 % [facility] Eosinophils (Bld) [#/Vol] 0.2 10*3/uL 0.0 - 0.5 10*3/uL [facility] Eosinophils/100 WBC (Bld) 1.7 % 0.0 - 6.0 % [facility] Erythrocyte distribution width (RBC) [Ratio] 13 % 11.5 - 15.0 % [facility] Hematocrit (Bld) [Volume fraction] 47.5 % High 35.0 - 47.0 % [facility] Hemoglobin (Bld) [Mass/Vol] 15.5 g/dL 11.7 - 16.0 g/dL [facility] Immature granulocytes (Bld) [#/Vol] 0 10*3/uL NINF - 0.1 10*3/uL [facility] Immature granulocytes/100 WBC (Bld) 0.2 % 0.0 - 2.0 % [facility] Interpretation and review of laboratory results Abnormal [facility] Lymphocytes (Bld) [#/Vol] 1.9 10*3/uL 1.0 - 4.3 10*3/uL [facility] Lymphocytes/100 WBC (Bld) 21.8 % 15.0 - 45.0 % [facility] MCH (RBC) [Entitic mass] 27.4 pg 26.0 - 34.0 pg [facility] MCHC (RBC) [Mass/Vol] 32.6 % 30.5 - 36.0 % [facility] MCV (RBC) [Entitic vol] 83.9 fL 77.0 - 99.0 fL [facility] Monocytes (Bld) [#/Vol] 0.8 10*3/uL 0.0 - 0.9 10*3/uL [facility] Monocytes/100 WBC (Bld) 8.8 % 5.0 - 13.0 % [facility] Neutrophils (Bld) [#/Vol] 6 10*3/uL 1.8 - 7.5 10*3/uL [facility] Neutrophils/100 WBC (Bld) 67.3 % 38.0 - 82.0 % [facility] Nucleated RBC/100 WBC (Bld) [Ratio] 0 % [facility] Platelet mean volume (Bld) [Entitic vol] 10.4 fL 9.0 - 12.7 fL [facility] Platelets (Bld) [#/Vol] 316 10*3/uL 140 - 440 10*3/uL [facility] RBC (Bld) [#/Vol] 5.66 10*6/uL High 3.80 - 5.2 0 10*6/uL [facility] WBC (Bld) [#/Vol] 8.9 10*3/uL 3.6 - 10.7 10*3/uL [facility] CBC WITH AUTO DIFFERENTIALon 03-02-2025 Basophils (Bld) [#/Vol] 0.0 10*3/uL Normal 0.0-0.2 [facility] Comment on above: Performed By: #### L [id number] ####Foundry Hand: PRASHANTH SHEFFIELD ([id number])[facility] ([facility])[address] [place] [address] Basophils/100 WBC (Bld) 0.2 % Normal 0.0-2.0 [facility] Comment on above: Performed By: #### L [id number] ####Foundry Hand: PRASHANTH SHEFFIELD ([id number])[facility] ([facility])[address] Eosinophils (Bld) [#/Vol] 0.2 10*3/uL Normal 0.0-0.5 [facility] Comment on above: Performed By: #### L [id number] ####Foundry Hand: PRASHANTH SHEFFIELD ([id number])[facility] (SBHLAB)[address] Eosinophils/100 WBC (Bld) 1.7 % Normal 0.0-6.0 [facility] Comment on above: Performed By: #### L [id number] ####Foundry Hand: PRASHANTH SHEFFIELD ([id number])[facility] [place] (SBHLAB)[address] Erythrocyte distribution width (RBC) [Ratio] 13.0 % Normal 11.5-15.0 [facility] Comment on above: Performed By: #### L [id number] ####Foundry Hand: PRASHANTH SHEFFIELD ([id number])[facility] (SBHLAB)[address] Hematocrit (Bld) [Volume fraction] 47.5 % High 35.0-47.0 [facility] Comment on above: Performed By: #### L [id number] ####Foundry Hand: PRASHANTH SHEFFIELD ([id number])[facility] [place] (SBHLAB)[address] Hemoglobin (Bld) [Mass/Vol] 15.5 g/dL Normal 11.7-16.0 [facility] Comment on above: Performed By: #### L [id number] ####Foundry Hand: PRASHANTH SHEFFIELD ([id number])[facility] [place] (SBHLAB)[address] IMMATURE GRANS % 0.2 % Normal 0.0-2.0 [facility] Comment on above: Performed By: #### L [id number] ####Foundry Hand: PRASHANTH SHEFFIELD ([id number])[facility] [place] (SBHLAB)[address] IMMATURE GRANS ABSOLUTE 0.0 10*3/uL Normal <0.1 [facility] Comment on above: Performed By: #### L [id number] ####Foundry Hand: PRASHANTH SHEFFIELD ([id number])[facility] [place] (SBHLAB)[address] Lymphocytes (Bld) [#/Vol] 1.9 10*3/uL Normal 1.0-4.3 [facility] Comment on above: Performed By: #### L [id number] ####Foundry Hand: PRASHANTH FRANCISRobinHESHAM ([id number])[facility] [place] (SBHLAB)[address] Lymphocytes/100 WBC (Bld) 21.8 % Normal 15.0-45.0 [facility] Comment on above: Performed By: #### L [id number] ####Foundry Hand: PRASHANTH NETTIE ([id number])[facility] (SBHL[facility])[address] MCH (RBC) [Entitic mass] 27.4 pg Normal 26.0-34.0 [facility] Comment on above: Performed By: #### L [id number] ####Foundry Hand: PRASHANTH NETTIE ([id number])[facility] ([facility])[address] MCHC 32.6 % Normal 30.5-36.0 [facility] Comment on above: Performed By: #### L [id number] ####Foundry Hand: PRASHANTH VALLEJOHESHAM ([id number])[facility] [place] (SBHLAB)[address] MCV (RBC) [Entitic vol] 83.9 fL Normal 77.0-99.0 [facility] Comment on above: Performed By: #### L [id number] ####Foundry Hand: PRASHANTH VALLEJOHESHAM ([id number])[facility] (SBHLAB)[address] Monocytes (Bld) [#/Vol] 0.8 10*3/uL Normal 0.0-0.9 [facility] Comment on above: Performed By: #### L [id number] ####Foundry Hand: PRASHANTH SHEFFIELD ([id number])[facility]CROWN[facility] (SBHLAB)[address] Monocytes/100 WBC (Bld) 8.8 % Normal 5.0-13.0 [facility] Comment on above: Performed By: #### L [id number] ####Foundry Hand: PRASHANTH SHEFFIELD ([id number])[facility] [place] (SBHLAB)[address] NEUTROPHILS ABSOLUTE 6.0 10*3/uL Normal 1.8-7.5 [facility] Comment on above: Performed By: #### L [id number] ####Foundry Hand: PRASHANTH SHEFFIELD ([id number])[facility] [place] (SBHLAB)[address] Neutrophils/100 WBC (Bld) 67.3 % Normal 38.0-82.0 [facility] Comment on above: Performed By: #### L [id number] ####Foundry Hand: PRASHANTH SHEFFIELD ([id number])[facility] [place] (SBHLAB)155 [address] NRBC 0.0 /100 WBCs Normal 0.0-2.0 [facility] Comment on above: Performed By: #### L [id number] ####Foundry Hand: PRASHANTH SHEFFIELD ([id number])[facility] [place] ([facility])[address] Platelet mean volume (Bld) [Entitic vol] 10.4 fL Normal 9.0-12.7 [facility] Comment on above: Performed By: #### L [id number] ####Foundry Hand: PRASHANTH SHEFFIELD ([id number])[facility] [place] ([facility])155 [place] [address] [place] Platelets (Bld) [#/Vol] 316 10*3/uL Normal 140-440 [facility] Comment on above: Performed By: #### L [id number] ####Foundry Hand: PRASHANTH SHEFFIELD ([id number])[facility] [place] ([facility])[address] [place] [address] [place] RBC (Bld) [#/Vol] 5.66 10*6/uL High 3.80-5.20 [facility] Comment on above: Performed By: #### L [id number] ####Foundry Hand: PRASHANTH SHEFFIELD ([id number])[facility] [place] (SBHLAB)[address] WBC (Bld) [#/Vol] 8.9 10*3/uL Normal 3.6-10.7 [facility] Comment on above: Performed By: #### L [id number] ####Foundry Hand: PRASHANTH SHEFFIELD ([id number])[facility] [place] (SB[facility])[address] COMPREHENSIVE METABOLIC PANE Aly 03-02-2025 Albumin [Mass/Vol] 3.6 g/dL Normal 3.5-5.0 [facility] Comment on above: Performed By: #### L [id number], [id number] ####Foundry Hand: PRASHANTH SHEFFIELD ([id number])[facility] [place] ([facility])[address] ALP [Catalytic activity/Vol] 112 U/L Normal 40-150 [facility] Comment on above: Performed By: #### L AB17, [id number] ####Foundry Hand: PRASHANTH SHEFFIELD ([id number])[facility] [place] ([facility])[address] ALT [Catalytic activity/Vol] 24 U/L Normal <30 [facility] Comment on above: Performed By: #### L AB17, [id number] ####Foundry Hand: PRASHANTH SHEFFIELD ([id number])[facility] [place] ([facility])[address] Anion gap [Moles/Vol] 8 mmol/L Normal 3-13 [facility] Comment on above: Performed By: #### L AB17, [id number] ####Foundry Hand: PRASHANTH SHEFFIELD ([id number])[facility] [place] ([facility])[address] AST [Catalytic activity/Vol] 18 U/L Normal <34 [facility] Comment on above: Performed By: #### L AB17, [id number] ####Foundry Hand: PRASHANTH SHEFFIELD ([id number])[facility] [place] (SBHL[facility])[address] Bilirubin [Mass/Vol] 0.2 mg/dL Normal <1.2 [facility] Comment on above: Performed By: #### L AB17, [id number] ####Foundry Hand: PRASHANTH SHEFFIELD ([id number])[facility] [place] ([facility])[address] Calcium [Mass/Vol] 8.8 mg/dL Normal 8.4-10.2 [facility] Comment on above: Performed By: #### L AB17, [id number] ####Foundry Hand: PRASHANTH SHEFFIELD ([id number])[facility] [place] ([facility])[address] Chloride [Moles/Vol] 105 mmol/L Normal 98-107 [facility] Comment on above: Performed By: #### L AB17, [id number] ####Foundry Hand: PRASHANTH SHEFFIELD ([id number])[facility] [place] ([facility])[address] CO2 [Moles/Vol] 25 mmol/L Normal 22-29 [facility] Comment on above: Performed By: #### L AB17, [id number] ####Foundry Hand: PRASHANTH SHEFFIELD ([id number])[facility] [place] ([facility])[address] [place] [address] [place] Creatinine [Mass/Vol] 0.80 mg/dL Normal 0.57-1.11 [facility] Comment on above: Performed By: #### L AB17, [id number] ####Foundry Hand: PRASHANTH SHEFFIELD ([id number])[facility] [place] ([facility])[address] [place] [address] [place] GLOMERULAR FILTRATION RATE ML/MIN/1.73 SQ M.PREDICTED >90.0 Normal >60.0 [facility] Comment on above: Result Comment: Calc ulation based on the Chronic Kidney Disease Epidemiology Collaboration (CKD-EPI) equation refit without adjustment for race Performed By: #### L AB17, [id number] ####Foundry Hand: PRASHANTH SHEFFIELD ([id number])[facility] ([facility])[address] Glucose [Mass/Vol] 147 mg/dL High 74-100 [facility] Comment on above: Performed By: #### L AB17, [id number] ####Foundry Hand: PRASHANTH SHEFFIELD ([id number])[facility] (SB[facility])[address] Potassium [Moles/Vol] 4.2 mmol/L Normal 3.5-5.1 [facility] Comment on above: Result Comment: [facility] potassium values may be up to 0.5 mmol/L lower than serum values. Performed By: #### L AB17, [id number] ####Foundry Hand: PRASHANTH SHEFFIELD ([id number])[facility] (SB[facility])[address] Protein [Mass/Vol] 6.7 g/dL Normal 6.4-8.3 [facility] Comment on above: Performed By: #### L AB17, [id number] ####Foundry Hand: PRASHANTH SHEFFIELD ([id number])[facility] ([facility])[address] [place] [address] [place] Sodium [Moles/Vol] 138 mmol/L Normal 136-145 [facility] Comment on above: Performed By: #### L AB17, [id number] ####Foundry Hand: PRASHANTH SHEFFIELD ([id number])[facility] ([facility])[address] Urea nitrogen [Mass/Vol] 20 mg/dL Normal 8-21 [facility] Comment on above: Performed By: #### L AB17, [id number] ####Foundry Hand: PRASHANTH SHEFFIELD ([id number])[facility] (SB[facility]AB)[address] [place] [address] CT HEAD WO IV CONTRASTon CT HEAD WO IV CONTRAST Patient Name: JOSSELYN FLORES : 1975 Exam Date/Time: 03/02/2025 17:01 Procedure: CT HEAD WO IV CONTRAST Ordering Provider: DAVIES JR, STEPHEN Reason For Exam: Headache, sudden, severe CT HEAD WITHOUT CONTRAST CLINICAL INDICATION: Headache, sudden, severe TECHNIQUE: Axial CT images of the brain were obtained without intravenous contrast. Coronal and sagittal reformatted images were also made available for interpretation. Dose reduction was employed with automated exposure control. COMPARISON: None. FINDINGS: Limitations: Mild streak artifact. Ventricles and Extra-axial spaces: Within normal limits for patient's age. No extra-axial fluid collection. No localized mass effect or midline shift. Cerebral and Cerebellar parenchyma: No CT evidence of acute intracranial hemorrhage or acute territorial infarct. Paranasal sinuses: Appear fairly well aerated. Mastoid air cells: Appear fairly well aerated. Orbital contents: No significant abnormality within the visualized portions Calvarium and Skull base: Appear intact. IMPRESSION: No CT evidence of acute intracranial abnormality. Report Dictated on Electronically Signed By: Jose Alexandra MD Electronically Signed Date/Time: 03/02/2025 5:47 PM EDT Table formatting from the original note was not included. Pt presents to ED for migraine, sweating, dizziness, low body temp. Pt reports previous issues with temp regulation. Pt also states she is having issues with her narcolepsy as well. Normal [facility] CT Head WO contraston [address] evidence of acute intracranial abnormality. Report Dictated on Electronically Signed By: Jose Alexandra MD Electronically Signed Date/Time: 03/02/2025 5:47 PM EDT [facility] [employer] Patient Name: JOSSELYN PERSAUD : 1975 Exam Date/Time: 03/02/2025 17:01 Procedure: CT HEAD WO IV CONTRAST Ordering Provider: DAVIES JR, STEPHEN Reason For Exam: Headache, sudden, severe CT HEAD WITHOUT CONTRAST CLINICAL INDICATION: Headache, sudden, severe TECHNIQUE: Axial CT images of the brain were obtained without intravenous contrast. Coronal and sagittal reformatted images were also made available for interpretation. Dose reduction was employed with automated exposure control. COMPARISON: None. FINDINGS: Limitations: Mild streak artifact. Ventricles and Extra-axial spaces: Within normal limits for patient's age. No extra-axial fluid collection. No localized mass effect or midline shift. Cerebral and Cerebellar parenchyma: No CT evidence of acute intracranial hemorrhage or acute territorial infarct. Paranasal sinuses: Appear fairly well aerated. Mastoid air cells: Appear fairly well aerated. Orbital contents: No significant abnormality within the visualized portions Calvarium and Skull base: Appear intact. [facility] Diego Alexandra MD - 03/02/2025 [facility] Name: [facility] 1975 [id number] Exam Date/Time: 03/02/2025 17:01 Procedure: CT HEAD WO IV CONTRAST Ordering Provider: DAVIES JR, STEPHEN Reason For Exam: Headache, sudden, severe CT HEAD WITHOUT CONTRAST CLINICAL INDICATION: Headache, sudden, severe TECHNIQUE: Axial CT images of the brain were obtained without intravenous contrast. Coronal and sagittal reformatted images were also made available for interpretation. Dose reduction was employed with automated exposure control. COMPARISON: None. FINDINGS: Limitations: Mild streak artifact. Ventricles and Extra-axial spaces: Within normal limits for patient's age. No extra-axial fluid collection. No localized mass effect or midline shift. Cerebral and Cerebellar parenchyma: No CT evidence of acute intracranial hemorrhage or acute territorial infarct. Paranasal sinuses: Appear fairly well aerated. Mastoid air cells: Appear fairly well aerated. Orbital contents: No significant abnormality within the visualized portions Calvarium and Skull base: Appear intact. IMPRESSION: No CT evidence of acute intracranial abnormality. Report Dictated on Electronically Signed By: Jose Alexandra MD Electronically Signed Date/Time: 03/02/2025 5:47 PM EDT [facility] Radiology Study observation (narrative) [facility] CT Head WO contrastOrdered B y: Diego Alexandra on 03-02-2025 [facility] Work Phone: Comprehensive metabolic 1998 panelon 03-02-2025 Albumin [Mass/Vol] 3.6 g/dL 3.5 - 5.0 g/dL [facility] ALP [Catalytic activity/Vol] 112 U/L 40 - 150 U/L [facility] ALT [Catalytic activity/Vol] 24 U/L NINF - 30 U/L [facility] Anion gap [Moles/Vol] 8 mmol/L 3 - 13 mmol/L [facility] AST [Catalytic activity/Vol] 18 U/L NINF - 34 U/L [facility] Bilirubin [Mass/Vol] 0.2 mg/dL NINF - 1.2 mg/dL [facility] Calcium [Mass/Vol] 8.8 mg/dL 8.4 - 10. 2 mg/dL [facility] Chloride [Moles/Vol] 105 mmol/L 98 - 10 7 mmol/L [facility] CO2 [Moles/Vol] 25 mmol/L 22 - 29 mmol/L [facility] Creatinine [Mass/Vol] 0.8 mg/dL 0.57 - 1.11 mg/dL [facility] GFR/1.73 sq M.predicted (S/P/Bld) [Vol rate/Area] - PINF [facility] Comment on above: Calculation based on the Chronic Kidney Disease Epidemiology Collaboration (CKD-EPI) equation refit without adjustment for race Glucose [Mass/Vol] 147 mg/dL High 74 - 100 mg/dL [facility] Interpretation and review of laboratory results Abnormal [facility] Potassium [Moles/Vol] 4.2 mmol/L 3.5 - 5.1 mmol/L [facility] Comment on above: Plasma potassium kieran ues may be up to 0.5 mmol/L lower than serum values. Protein [Mass/Vol] 6.7 g/dL 6.4 - 8.3 g/dL [facility] Sodium [Moles/Vol] 138 mmol/L 136 - 145 mmol/L [facility] Urea nitrogen [Mass/Vol] 20 mg/dL 8 - 21 mg/dL [facility] ED Provider Noteon ED Provider Note EMERGENCY DEPARTMENT ENCOUNTER Pt Name: Josselyn Flores Birthdate 1975 Date of evaluation: 03/02/2025 ED Provider: Roger Davies DO CHIEF COMPLAINT Chief Complaint Patient presents with Headache Pt presents to ED for migraine, sweating, dizziness, low body temp. Pt reports previous issues with temp regulation. Pt also states she is having issues with her narcolepsy as well. HISTORY OF PRESENT ILLNESS (Location/Symptom, Timing/Onset, Context/Setting, Quality, Duration, Modifying Factors, Severity) Note limiting factors. I wore appropriate PPE for the entirety of this encounter. HPI Josselyn Flores is a 49 y.o. with history of migraine htn hashimotos recent hysterectomy who presents to the emergency department for evaluation multiple complaints. States that migraine low body temperature. States had trouble for some time with regulating body temperature Nursing Notes were reviewed. History obtained from : patient Outside records reviewed: N/A History/Collateral information obtained from: N/A Patient's PDMP reviewed personally ED Course as of 03/13/25 0338 WedMar 02, 2025 1642 Patient's temperature within normal limits although feels as if she is not regulating it, nothing attempted for headache prior to arrival does have history of migraine [SL] 1803 Patient declined any medications, is currently taking [place] Thyroid not currently following with endocrinology placed as a patient may want to again if not getting answers for difficulty regulating body temperature, did take her temperature orally earlier, will follow with her PCP discussed CT imaging results will discharge follows outpatient [SL] ED Course User Index [SL] Roger Davies Jr., Diagnoses as of 03/13/25 0338 Nonintractable headache, unspecified chronicity pattern, unspecified headache type Temperature body decrease Discussion/ MDM: Differential diagnosis includes but not limited to: migraine headache, cluster headache, sinusitis, ICH Discussed plan, medication ordered and administered to evaluate for improvement with rapid almost resolution of symptoms, patient afebrile vital signs reassuring with symptomatic improvement, remained nontoxic appearing and symptomatically improved in the emergency department, consider obtaining CT or MRI imaging of brain however patient with symptoms consistent with migraine headaches or migrainous constellation of symptoms of had in the past including quality and intensity although duration has been longer than usual, with marked improvement do not feel necessary or obtaining imaging would be of further benefit at this time, discussed plan with patient in agreement with deferring imaging at this time but may require in the future if symptoms persist or new symptoms develop, also considered LP discussed utility with patient and reasoning after shared decision making and consideration will defer at this time as afebrile rapid symptom improvement and no focal neurologic deficit/changes or neck pain patient in agreement, provided opportunity to ask any further questions, all questions answered to the best of my ability, feels comfortable with discharge and plan to follow up with PCP and neurologist as warranted for expert recommendations and evaluation as outpatient. Will return at any time if symptoms worsen, new symptoms develop, or any new concerns arise. medication Chart created with voice recognition software, errors may be present due to software?s interpretation REVIEW OF SYSTEMS Review of Systems Pertinent positives and negatives as per HPI PAST MEDICAL HISTORY Medical History[1] SURGICAL HISTORY Surgical History[2] CURRENT MEDICATIONS Discharge Medication List as of 03/02/2025 6:05 PM CONTINUE these medications which have NOT CHANGED Details acetaminophen (Tylenol Extra Strength) 500 MG tablet Take 2 tablets (1,000 mg) by mouth every 6 hours as needed for mild pain (1-3) for up to 10 days., Starting Wed02/27/2025, Until Wed03/09/2025 at 2359, Normal amphetamine-dextroamph etamine (Adderall) 30 MG tablet Take 30 mg by mouth daily., Historical Med amphetamine-dextroamph etamine XR (Adderall XR) 30 MG 24 hr capsule Take 30 mg by mouth every morning. Do not crush or chew., Historical Med [place] Thyroid 30 MG tablet Every 24 hours., Historical Med B Complex Vitamins (B COMPLEX PO) Take by mouth., Historical Med bisoprolol (Zebeta) 5 MG tablet Every 24 hours., Starting Wed02/18/2024, Historical Med CHELATED MAGNESIUM PO Take by mouth., Historical Med CHELATED ZINC PO Take by mouth., Historical Med cholecalciferol (Vitamin D-3) 125 MCG (5000 UT) capsule Take 1 capsule by mouth Every 24 hours., Historical Med COPPER PO Take by mouth., Historical Med ibuprofen 600 MG tablet Take 1 tablet (600 mg) by mouth every 6 hours as needed for mild pain (1-3) for up to 15 days., Starting Wed02/27/2025, Until Wed 7/ (more content not included)... Normal [facility] - Chemistry and C hemistry - challengeon 03-02-2025 TSH Qn 0.02 m[IU]/L Low [facility] THYROID STIMULATING HORMONEo n 03-02-2025 THYROID STIMULATING HORMONE 0.02 uIU/mL Low 0.35-4.94 [facility] Comment on above: Performed By: #### L AB17, [id number] ####Foundry Hand: PRASHANTH SHEFFIELD ([id number])[facility] ([facility])[address] [place] [address] TSH Qnon 03-02-2025 Interpretation and review of laboratory results Abnormal [facility] BLOOD TYPE AND SCREEN GELon 02-27-2025 ABO GROUPING O Normal [facility] Comment on above: Order Comment: HOLD. Specimen is valid for 3 days - nurse to verify valid specimen Performed By: #### L [id number] ####Foundry Hand: ANNABELLE WRIGHT ([id number])[facility] ([facility])[address] [place] [address] RH TYPE IN BLOOD Positive Normal [facility] Comment on above: Order Comment: HOLD. Specimen is valid for 3 days - nurse to verify valid specimen Performed By: #### L [id number] ####Foundry Hand: ANNABELLE WRIGHT ([id number])[facility] ([facility])[address] [place] [address] Blood type and Crossmatch pa vonda (Bld)on 02-27-2025 ABO group Nom (Bld) O [facility] Blood group antibody screen GEL Ql Negative [facility] D Ag Ql (RBC) Positive [facility] CBC (HEMOGRAM)on 02-27-2025 Erythrocyte distribution width (RBC) [Ratio] 12.9 % Normal 11.5-15.0 [facility] Comment on above: Performed By: #### L [id number] ####Foundry Hand: ANNABELLE WRIGHT ([id number])[facility] ([facility])[address] [place] [address] Hematocrit (Bld) [Volume fraction] 42.3 % Normal 35.0-47.0 [facility] Comment on above: Performed By: #### L [id number] ####Foundry Hand: ANNABELLE WRIGHT ([id number])[facility])[address] [place] [address] Hemoglobin (Bld) [Mass/Vol] 14.4 g/dL Normal 11.7-16.0 [facility] Comment on above: Performed By: #### L [id number] ####Foundry Hand: ANNABELLE WRIGHT ([id number])[facility])[address] [place] [address] MCH (RBC) [Entitic mass] 28.0 pg Normal 26.0-34.0 [facility] Comment on above: Performed By: #### L [id number] ####Foundry Hand: ANNABELLE WRIGHT ([id number])[facility])[address] [place] [address] MCHC 34.0 % Normal 30.5-36.0 [facility] Comment on above: Performed By: #### L [id number] ####Foundry Hand: ANNABELLE WRIGHT ([id number])[facility] ([facility])[address] [place] [address] MCV (RBC) [Entitic vol] 82.1 fL Normal 77.0-99.0 [facility] Comment on above: Performed By: #### L [id number] ####Foundry Hand: ANNABELLE WRIGHT ([id number])[facility])[address] [place] [address] Platelet mean volume (Bld) [Entitic vol] 10.2 fL Normal 9.0-12.7 [facility] Comment on above: Performed By: #### L [id number] ####Foundry Hand: ANNABELLE WRIGHT ([id number])[facility])[address] [place] [address] Platelets (Bld) [#/Vol] 291 10*3/uL Normal 140-440 [facility] Comment on above: Performed By: #### L [id number] ####Foundry Hand: ANNABELLE WRIGHT ([id number])[facility] ([facility])[address] [place] [address] RBC (Bld) [#/Vol] 5.15 10*6/uL Normal 3.80-5.20 [facility] Comment on above: Performed By: #### L [id number] ####Foundry Hand: ANNABELLE WRIGHT ([id number])[facility])[address] [place] [address] WBC (Bld) [#/Vol] 7.0 10*3/uL Normal 3.6-10.7 [facility] Comment on above: Performed By: #### L [id number] ####Foundry Hand: ANNABELLE WRIGHT ([id number])[facility] ([facility])[address] [place] [address] CBC panel Auto (Bld)on 02-27 Erythrocyte distribution width (RBC) [Ratio] 12.9 % 11.5 - 15.0 % [facility] Hematocrit (Bld) [Volume fraction] 42.3 % 35.0 - 47.0 % [facility] Hemoglobin (Bld) [Mass/Vol] 14.4 g/dL 11.7 - 16.0 g/dL [facility] Interpretation and review of laboratory results Normal [facility] MCH (RBC) [Entitic mass] 28 pg 26.0 - 34.0 pg [facility] MCHC (RBC) [Mass/Vol] 34 % 30.5 - 36.0 % [facility] MCV (RBC) [Entitic vol] 82.1 fL 77.0 - 99.0 fL [facility] Platelet mean volume (Bld) [Entitic vol] 10.2 fL 9.0 - 12.7 fL [facility] Platelets (Bld) [#/Vol] 291 10*3/uL 140 - 440 10*3/uL [facility] RBC (Bld) [#/Vol] 5.15 10*6/uL 3.80 - 5.2 0 10*6/uL [facility] WBC (Bld) [#/Vol] 7 10*3/uL 3.6 - 10.7 10*3/uL [facility] HCG ( test) Ql (U)o n 02-27-2025 Beta HCG ( test) Ql (U) [id number] [facility] Interpretation and review of laboratory results Normal [facility] NEGATIVE QC Pass [facility] POSITIVE QC Pass [facility] Preg Test, Ur Negative Negative [facility] Nursing Noteon 02-27-2025 Nursing Note Pt pain tolerable, free from nausea. Ambulated hallway, discharge instructions reviewed with pt and family at bedside. Normal [facility] Nursing Note Patient wanted to wa it to talk with Dr. Zamudio regarding her consent. She was not comfortable with the wording in the consent. Stop sign placed until she can speak with Dr. Zamudio. Normal [facility] [id number] 02-19-2025 [id number] Medication List Accurate as of February 19, 2025 2:13 PM. Always use your most recent med list. * amphetamine-dextroamph etamine XR 30 MG 24 hr capsule Commonly known as: Adderall XR Medication Adjustments for Surgery: Hold morning of surgery * Adderall 30 MG tablet Generic drug: amphetamine-dextroamph etamine Medication Adjustments for Surgery: Hold morning of surgery [place] Thyroid 30 MG tablet Generic drug: thyroid Medication Adjustments for Surgery: Take morning of surgery B COMPLEX PO Medication Adjustments for Surgery: Hold morning of surgery bisoprolol 5 MG tablet Commonly known as: Zebeta Medication Adjustments for Surgery: Take morning of surgery CHELATED MAGNESIUM PO Medication Adjustments for Surgery: Hold morning of surgery CHELATED ZINC PO Medication Adjustments for Surgery: Hold morning of surgery cholecalciferol 125 MCG (5000 UT) capsule Commonly known as: Vitamin D-3 Medication Adjustments for Surgery: Hold morning of surgery COPPER PO Medication Adjustments for Surgery: Hold morning of surgery LYSINE PO Medication Adjustments for Surgery: Hold morning of surgery OIL OF [place] PO Medication Adjustments for Surgery: Hold morning of surgery omega-3 1000 MG capsule Commonly known as: fish oil Medication Adjustments for Surgery: Hold morning of surgery POTASSIUM CITRATE PO Medication Adjustments for Surgery: Hold morning of surgery [place] 150 MG tablet Generic drug: Solriamfetol HCl Medication Adjustments for Surgery: Hold morning of surgery [place] PO VITAMIN K2-VITAMIN D3 PO Medication Adjustments for Surgery: Hold morning of surgery * This list has 2 medication(s) that are the same as other medications prescribed for you. Read the directions carefully, and ask your doctor or other care provider to review them with you. No food after midnight. Clear fluids up to 2 hours before surgery, including water, apple or cranberry juice, soda (carbonated beverages), sports drinks, black coffee or clear tea, No creamer or milk. No orange juice. Before arriving to the hospital have 16 ounces of your favorite clear fluid preferably a high-carb drink like Gatorade or Powerade Additional Instructions: You may take your prescription pain medication. You may take Tylenol for pain. NO Motrin, ibuprofen or Advil for 24 hours prior to surgery or longer if instructed by your surgeon. NO Aleve or Naprosyn for 5 days prior to surgery or longer if instructed by your surgeon. IF YOU TAKE BLOOD THINNERS OR ASPIRIN: NO ASPIRIN FOR FIVE DAYS PRIOR TO SURGERY Follow any instructions given to you by Dr. ZAMUDIO Showdelroy with an antibacterial soap such as Dial or Safeguard before coming to the hospital. No makeup, lotion, powder, deodorant or body sprays. No hair products. Remove all jewelry and leave it at home. Wear loose comfortable clothing to go home in. You may brush your teeth morning of surgery. Do not wear contacts day of surgery. No tobacco products, marijuana (THC), smoking or alcohol for 24 hours prior to surgery. You will be asked to provide a urine specimen when you arrive Please arrange for a responsible adult to drive you home after your surgery and that there is a responsible adult with you for 24 hours post discharge. If you have specific questions, please call your surgeon. You will receive a call the day before your surgery to verify your arrival time and date. You will be asked to arrive at least two hours prior to your scheduled surgery time. Please bring your [facility] folder and medication list with you day of surgery. We encourage you to write down any questions you may have for the surgeon, anesthesiologist, or other members of the surgical team and bring it with you the day of surgery. Please bring photo ID and insurance information. MAIN ENTRANCE ARRIVAL ENTER BUILDING AT THE MAIN ENTRANCE. TAKE THE H ELEVATOR TO THE FIRST FLOOR, TURN LEFT OFF THE ELEVATOR AND GO TO THE SAME DAY SURGERY REGISTRATION DESK TO CHECK IN Normal [facility] ECG 12-LEADon 02-19-2025 ECG 12-LEAD IMPRESSION: Sinus rhythm Ventricular premature complex No previous ECG available for comparison Electronically Signed On 02-19-2025 17:13:14 EDT by Landry Ramirez [facility] Progress Noteon 02-19-2025 Progress Note [facility] B[facility]Y Flores : 1975 Primary Care Physician: Carlos Chino DO The patient and/or family/surrogate voluntarily agreed to participate in ACP services. Patient?s cognitive capacity: The patient is alert and oriented to person, place, time, and situation. Patient has decision making capacity. Code Status: [x] [FULL CODE - Continue all advanced life support: CPR,intubation,invasiv e procedures] [_] [DNR-CCA - DO NOT do CPR, intubation] [_] [DNR-TAILING MACHINE OPERATOR - Comfort care only] [_] DNR form [was/was not] signed Summary of discussion: The patient health care POA/ surrogate is the following:POA is not established at this time. [Condition that instigated the ACP on this DOS, relevant PMH, functional status, goals of care, and whom this was discussed with including names and relationship to the patient, and any relevant advance care documentation discussion] I answered all the patient/family questions that I could within the range and scope of the current medical situation. We discussed the medical conditions, risks, benefits, outcomes, and goals of care at this time for the patient's medical issues at hand in the face of the patient's chronic issues and current presentation. Total time spent: 3 minutes were spent discussing the patient's resuscitation status, advance care planning, and end of life care, with patient and/or family/surrogate. Mary Schwab APRN - [place] Acute care [facility] 02/20/2025, 8:58 PM [facility] 36on 02-15-2025 36 Name of caller: Josselyn Contact phone number: [phone] Relationship to Patient: patient Provider: Carlos Chino DO Practice: [facility] Chief Complaint/Reason for Call: Patient is requesting callback re medication and states she is unable to access her patient portal at this time. Please advise and contact. Thank you Best time of day caller can be reached: PM Patient advised that office/PCP has 24-48 business hours to return their call: No Normal [facility] 36on 01-29-2025 36 Called pt back and r /s for 04/02 Normal [facility] 36 Name of Caller: Josselyn Contact Reason for Appointment: Reschedule 02/27/25 new patient appointment Office Name: [facility] Sleep Normal [facility] FREE T4on 09-30-2024 Free T4 [Mass/Vol] 0.61 ng/dL Low 0.70-1.48 [facility] Comment on above: Performed By: #### L [id number], [id number] ####Foundry Hand: ANNABELLE WRIGHT ([id number])[facility] LAUREN [employer] (SWRLAB)[address] [place] [address] Free T3 [Mass/Vol]on Interpretation and review of laboratory results Normal [facility] Free T4 [Mass/Vol]on 025 Free T4 Dialysis [Mass/Vol] 0.61 ng/dL Low 0.70 - 1.48 ng/dL [facility] Interpretation and review of laboratory results Abnormal [facility] No Panel Informationon 09-30 [facility] T3 FREEon 09-30-2024 Free T3 [Mass/Vol] 2.74 pg/mL Normal 1.58-3.91 [facility] Comment on above: Performed By: #### L AB137 ####Foundry Hand: PRASHANTH SHEFFIELD ([id number])[facility] IZZY ([facility])[address] [place] [address] [place] T3, freeon 09-30-2024 Free T3 [Mass/Vol] 2.74 pg/mL 1.58 - 3. 91 pg/mL [facility] THYROID STIMULATING HORMONEo n 09-30-2024 THYROID STIMULATING HORMONE 1.19 uIU/mL Normal 0.35-4.94 [facility] Comment on above: Performed By: #### L AB129, [id number] ####Foundry Hand: ANNABELLE WRIGHT ([id number])[facility]ITAL[facility]la AGUILAR RITTMAN (SWRLAB)[address] [place] [address] [place] TSHon 09-30-2024 TSH Qn 1.19 m[IU]/L [facility] TSH Qnon 09-30-2024 Interpretation and review of laboratory results Normal [facility] DBT Breast - bilateral scree araceligon 09-19-2024 No mammographic evidence of malignancy. ASSESSMENT: Category 1 Negative RECOMMENDATION: Routine screening mammogram in 1 year. Bilateral CANCER RISK ASSESSMENT: This risk assessment is based on patient provided information collected in a risk survey taken at the time of this examination. LIFETIME BREAST CANCER RISK: Lisbet 8: 10.06% - If greater than or equal to 20%, consider annual mammogram and annual screening Breast MRI or follow up in high risk clinic. Is the patient at elevated risk based on the HBOC criteria? No (Hereditary Breast and Ovarian Cancer) - If Yes, consider genetic counseling and testing with high risk follow up Is the patient at elevated risk based on the Tot Syndrome criteria? No - If Yes, consider genetic counseling and testing with high risk follow up. Report Dictated on Electronically Signed By: Mely Hewitt MD Electronically Signed Date/Time: 09/19/2024 3:48 PM [facility] Patient Name: JOSSELYN PERSAUD : 1975 Exam Date/Time: 09/14/2024 12:09 Procedure: BI MAMMOGRAM SCREENING TOMOSYNTHESIS BILATERAL Ordering Provider: ANAND MEHR Reason For Exam: This exam was performed at [address] [address] PATIENT CANCER HISTORY: No Personal History of Cancer FAMILY CANCER HISTORY: No Family History of Cancer Image views: 2D Bilateral CC and MLO views were acquired. 3D Bilateral CC and MLO views were acquired. Images were reviewed with CAD. Markings on images: BB's = Nipples; skin lesions Open alatna = Palpable Line = Scar COMPARISON: 07/22/2015, 08/22/2015 TISSUE DENSITY: BIRADS C - The breasts are heterogeneously dense, which may obscure small masses. FINDINGS: No suspicious masses, architectural distortions or suspiciously clustered microcalcifications are identified. There is no evidence of skin thickening or nipple retraction. There are no significant changes when compared with prior studies. [facility] Mely Hewitt MD - 09/19/2024 Patient Name: [facility]OSSELYN [facility] 1975 [id number] Exam Date/Time: 09/14/2024 12:09 Procedure: BI MAMMOGRAM SCREENING TOMOSYNTHESIS BILATERAL Ordering Provider: ANAND MEHR Reason For Exam: This exam was performed at [address] [facility] [address] PATIENT CANCER HISTORY: No Personal History of Cancer FAMILY CANCER HISTORY: No Family History of Cancer Image views: 2D Bilateral CC and MLO views were acquired. 3D Bilateral CC and MLO views were acquired. Images were reviewed with CAD. Markings on images: BB's = Nipples; skin lesions Open alatna = Palpable Line = Scar COMPARISON: 07/22/2015, 08/22/2015 TISSUE DENSITY: BIRADS C - The breasts are heterogeneously dense, which may obscure small masses. FINDINGS: No suspicious masses, architectural distortions or suspiciously clustered microcalcifications are identified. There is no evidence of skin thickening or nipple retraction. There are no significant changes when compared with prior studies. IMPRESSION: No mammographic evidence of malignancy. ASSESSMENT: Category 1 Negative RECOMMENDATION: Routine screening mammogram in 1 year. Bilateral CANCER RISK ASSESSMENT: This risk assessment is based on patient provided information collected in a risk survey taken at the time of this examination. LIFETIME BREAST CANCER RISK: LettyerPepe 8: 10.06% - If greater than or equal to 20%, consider annual mammogram and annual screening Breast MRI or follow up in high risk clinic. Is the patient at elevated risk based on the HBOC criteria? No (Hereditary Breast and Ovarian Cancer) - If Yes, consider genetic counseling and testing with high risk follow up Is the patient at elevated risk based on the Ott Syndrome criteria? No - If Yes, consider genetic counseling and testing with high risk follow up. Report Dictated on Electronically Signed By: Mely Hewitt MD Electronically Signed Date/Time: 09/19/2024 3:48 PM EST [facility] DBT Breast - bilateral scree ningOrdered By: Mely Hewitt on 09-19-2024 [facility] Work Phone: DBT Breast - bilateral aviva [place]nn 09-14-2024 Radiology Study observation (narrative) [facility] FOLLICLE STIMULATING HORMONE on 09-14-2024 FOLLICLE STIM HORMONE 5.3 mIU/mL Normal 1.4-16.7 [facility] Comment on above: Result Comment: CHARLOTTE Peralta COMMENTS: Values vary with stage of sexual development and/or menstrual cycle. Females: Follicular Phase ...... 2.0-11.6 Mid-cycle Peak ........ 5.1-23.4 Luteal Phase .......... 1.4-9.6 Post-menopausal ....... 21.5-131.0 Males: 1.6-9.7 Performed By: #### L AB87, LAB86, [id number] ####Foundry Hand: PRASHANTH SHEFFIELD ([id number])[facility] (SB[facility])[address] [place] [address] FSHon 09-14-2024 Follitropin Qn 5.3 m[IU]/mL [facility] alth Values vary with sta ge of sexual development and/or menstrual cycle. Females: Follicular Phase ...... 2.0-11.6 Mid-cycle Peak ........ 5.1-23.4 Luteal Phase .......... 1.4-9.6 Post-menopausal ....... 21.5-131.0 Males: 1.6-9.7 [facility] LUTEINIZING HORMONEon 2024 LUTEINIZING HORMONE 1.8 mIU/mL Normal 0.6-89.1 [facility] Comment on above: Result Comment: Fema les: Follicular Phase ...... 1.9-26.2 Mid-Cycle Peak ........ 22.8-76.1 Luteal Phase .......... 0.6-16.6 Post-menopausal ....... 8.6-61.8 (Not on MHT) Males: 1.2-10.6 ORDER COMMENTS: Values vary with sexual development and/or menstrual cycle. Performed By: #### L AB87, LAB86, [id number] ####Foundry Hand: PRASHANTH SHEFFIELD ([id number])[facility]KUMARBAN[facility] ([facility])[address] Luteinizing hormoneon 2024 Lutropin Qn 1.8 m[IU]/mL [facility] Comment on above: Females: Follicular Phase ...... 1.9-26.2 Mid-Cycle Peak ........ 22.8-76.1 Luteal Phase .......... 0.6-16.6 Post-menopausal ....... 8.6-61.8 (Not on MHT) Males: 1.2-10.6 Values vary with sexual development and/or menstrual cycle. [facility] No Panel Informationon 09-14 Interpretation and review of laboratory results Normal [facility] PROLACTINon 09-14-2024 PROLACTIN 6.2 ng/mL Normal 5.2-26.5 [facility] Comment on above: Result Comment: ORDE R COMMENTS: Values vary with stage of sexual development. Macroprolactin should be evaluated in asymptomatic hyperprolactinemic subjects. Performed By: #### L AB87, LAB86, [id number] ####Foundry Hand: PRASHANTH SHEFFIELD ([id number])[facility])[address] [place] [address] Prolactin levelon 09-14-2024 Prolactin [Mass/Vol] 6.2 ng/mL 5.2 - 2 6.5 ng/mL [facility] Values vary with sta ge of sexual development. Macroprolactin should be evaluated in asymptomatic hyperprolactinemic subjects. [facility] 36on 09-07-2024 36 Name of caller: Josselyn Flores Contact phone number: [phone] Relationship to Patient: patient Provider: Dr Reese [place] [facility] [place] Complaint/Reason for Call: Pt calling about orders need faxed over to [facility] [address] [place] [address], pt fasted and went for testing and could not complete because orders were not faxed. Please advise. Best time of day caller can be reached: any Patient advised that office/PCP has 24-48 business hours to return their call: Yes [facility] 36on 08-28-2024 36 S: Denny at [facility] spoke with [facility] nurse regarding medication clarification. B: Nalatrexone 2mg capsule. A: Need clarification of dosage, normal dosage is 40 or 50mg. R: Secure chat Dr. Chino at 1309, 1338, and 1357. He responded at 1359 stating Oh that's was supposed to be sent to [facility]. That can be cancelled at the [facility] thanks . Spoke with Mena at [facility] to inform her to cancel the prescription per Dr. Chino as the medication was to go to a compounding pharmacy. Reason for Disposition [1] Pharmacy calling with prescription question AND [2] triager unable to answer question Protocols used: Medication Question [id number] US Thyroid glandon THYROID ULTRASOUND : 1. Small size thyroid gland, heterogeneous with two small right lobe nodules. 2. Two solid hypoechoic TI RADS 4 nodules are identified--- 1.3 cm upper right lobe (measured 1.2 cm two years ago). 0.6 cm mid right lobe (measured 0.8 cm two years ago). NOTE: In this category FNA only suggested for nodules >1.5 cm. Report Dictated on Electronically Signed By: Oli Musa MD Electronically Signed Date/Time: 03/05/2024 3:08 PM EDT [facility] Patient Name: JOSSELYN PERSAUD : 1975 Exam Date/Time: 03/02/2024 08:44 Procedure: US THYROID Ordering Provider: ANAND MEHR Reason For Exam: E03.9 ULTRASOUND THYROID: Indication: Hypothyroidism. Examination: Ultrasonographic evaluation of the thyroid Comparison: 03/24/2022 Findings: RIGHT LOBE: 3.4 x 0.9 x 1.0 cm LEFT LOBE: 3.0 x 0.9 x 0.8 cm ECHOGENICITY PATTERN: Heterogeneous [facility] Oli Musa MD - 03/05/2024 Patient Name: JOSSELYN FLORES : 1975 Exam Date/Time: 03/02/2024 08:44 Procedure: US THYROID Ordering Provider: ANAND MEHR Reason For Exam: E03.9 ULTRASOUND THYROID: Indication: Hypothyroidism. Examination: Ultrasonographic evaluation of the thyroid Comparison: 03/24/2022 Findings: RIGHT LOBE: 3.4 x 0.9 x 1.0 cm LEFT LOBE: 3.0 x 0.9 x 0.8 cm ECHOGENICITY PATTERN: Heterogeneous IMPRESSION: THYROID ULTRASOUND : 1. Small size thyroid gland, heterogeneous with two small right lobe nodules. 2. Two solid hypoechoic TI RADS 4 nodules are identified--- 1.3 cm upper right lobe (measured 1.2 cm two years ago). 0.6 cm mid right lobe (measured 0.8 cm two years ago). NOTE: In this category FNA only suggested for nodules >1.5 cm. Report Dictated on Electronically Signed By: Oli Musa MD Electronically Signed Date/Time: 03/05/2024 3:08 PM EDT [facility] US Thyroid glandOrdered By: Oli Musa on 03-05-2024 [facility] Work Phone: US Abdomenon 03-03-2024 1. Unremarkable ultrasound of the abdomen except for probable mild fatty infiltration liver. Report Dictated on Electronically Signed By: Oli Musa MD Electronically Signed Date/Time: 03/03/2024 4:37 PM EDT [facility] Patient Name: JOSSELYN PERSAUD : 1975 Exam Date/Time: 03/02/2024 08:21 Procedure: US ABDOMEN COMPLETE Ordering Provider: CHINO BRINKMAN Reason For Exam: R10.11 CLINICAL INFORMATION: Right upper quadrant pain Sonogram of the abdomen is performed. The liver is hyperechoic in echotexture. No hyper or hypo echoic masses are seen. There is no intrahepatic biliary ductal dilatation. The gallbladder is normally distended. There are no gallstones, internal echoes, wall thickening, or pericholecystic fluid collections. The common bile duct diameter of 6.3 mm is within normal limits. No obvious pancreatic mass or peripancreatic fluid collection is identified (the pancreas is largely obscured by bowel gas). Cursory examination of the kidneys is performed. The right renal length is 11.2 cm. The left renal length is 9.7 cm. There is no hydronephrosis. There is no ascites. The top normal size spleen is unremarkable with calcified granulomas The visualized portions of the aorta and inferior vena cava are within normal limits. [facility] Oli Musa MD - 03/03/2024 Patient Name: JOSSELYN FLORES : 1975 Exam Date/Time: 03/02/2024 08:21 Procedure: US ABDOMEN COMPLETE Ordering Provider: CHINO BRINKMAN Reason For Exam: R10.11 CLINICAL INFORMATION: Right upper quadrant pain Sonogram of the abdomen is performed. The liver is hyperechoic in echotexture. No hyper or hypo echoic masses are seen. There is no intrahepatic biliary ductal dilatation. The gallbladder is normally distended. There are no gallstones, internal echoes, wall thickening, or pericholecystic fluid collections. The common bile duct diameter of 6.3 mm is within normal limits. No obvious pancreatic mass or peripancreatic fluid collection is identified (the pancreas is largely obscured by bowel gas). Cursory examination of the kidneys is performed. The right renal length is 11.2 cm. The left renal length is 9.7 cm. There is no hydronephrosis. There is no ascites. The top normal size spleen is unremarkable with calcified granulomas The visualized portions of the aorta and inferior vena cava are within normal limits. IMPRESSION: 1. Unremarkable ultrasound of the abdomen except for probable mild fatty infiltration liver. Report Dictated on Electronically Signed By: Oli Musa MD Electronically Signed Date/Time: 03/03/2024 4:37 PM EDT [facility] US AbdomenOrdered By: Payal Musa on 03-03-2024 [facility] Work Phone: US Abdomenon 03-02-2024 Radiology Study observation (narrative) [facility] US Thyroid glandon Radiology Study observation (narrative) [facility] CNOVon 12-01-2023 CNOV Office Visit (SLPBTH ) JOSSELYN FLORES ([id number]) 1975 F Date Time Provider Department 12/01/23 8:00 AM SLEEP LAB BATH BED 1 SLPBTH During your visit today, we recorded the following information about you: Jelena Maldonado 12/02/2023 12:19 AM Signed Sleep Study Check-In Documentation Date: December 02, 2023 Name: Josselyn Flores Patient was accompanied by Self. Location: [facility] [place] Latex allergy: No Tape allergy: No, sensitivity yes. No adhesive preference given. Current medications were reviewed with the patient:Yes Sleep aid taken by patient for the sleep study: Yes Name of sleep aid: Ambien 10mg. Procedure was explained to the patient and all questions were answered. PAP treatment discussed and shown to patient: Yes Knowledge Program (KP): KP was not completed in epic by patient and accepted Study type: Polysomnogram Adverse Event: No (If yes create a new abstract) Comments: Patient was advised to follow up with their ordering provider regarding test results Jelena Maldonado RPS. Note: MSLT to follow. Referring Provider: TYLER RICK [[id number]] Allergies As of Date: 12/01/2023 Noted Allergy Reaction SODIUM LAURETH SULFATE 07/11/2015 2 - Rash Comments: Redness and Irritation On Skin SULFA (SULFONAMIDE ANTIBIOTICS) 07/11/2015 4 - Hives Date Reviewed: 07/11/2015 Reviewed by: Ivette Lira Ma - Fully Assessed Reason for Visit: Psg Check In (Adult) [4197] Primary Visit Diagnosis:Snoring [R06.83] Prescriptions as of 12/02/2023 - Flaxseed Oil oil - BIOTIN ORAL Take by mouth. - APPLE CIDER VINEGAR ORAL Take by mouth. Problem List As Of Date 12/01/2023 Noted Resolved RUQ abdominal pain [R10.11] 07/11/2015 Encounter Status:Closed by JELENA MALDONADO on 12/02/23 Normal [facility] Hemoglobin A1Con 10-20-2023 Comment HgbA1C levels may no t be accurate in patients who have renal disease, received recent blood transfusions, are anemic or who have dyshemoglobinemia. [facility] Comment on above: Performed By: #### H GA1C #### [place] [address] Glucose [Mass/Vol] 103 mg/dL Normal [facility] Comment on above: Performed By: #### H GA1C #### [address] [address] HbA1c (Bld) [Mass fraction] 5.2 % Normal <=5.6 [facility] Comment on above: Performed By: #### H GA1C #### [address] [address] Please Note: Prediabetes: 5.7 - 6 .4 Diabetes: >6.4 Glycemic control for adults with diabetes: <7.0 [facility] Comment on above: Performed By: #### H GA1C #### [address] [address] Free T3 [Mass/Vol]on 023 Interpretation and review of laboratory results Normal [facility] Free T4 [Mass/Vol]on 023 Free T4 Dialysis [Mass/Vol] 0.76 ng/dL Low 0.78 - 2.19 ng/dL [facility] Interpretation and review of laboratory results Abnormal [facility] T3, freeon 10-28-2022 Free T3 [Mass/Vol] 3.50 pg/mL 2.77 - 5. 27 pg/mL [facility] TSHon 10-28-2022 TSH Qn 0.215 m[IU]/L Low [facility] h TSH Qnon 10-28-2022 Interpretation and review of laboratory results Abnormal [facility] US Head/Neck Soft Tissueon 1 US Head/Neck Soft Tissue Patient Name: JOSSELYN FLORES Ultrasound ACCESSION EXAM DATE/TIME PROCEDURE ORDERING PROVIDER [id number] 07/03/2022 09:10 EDT US Head/Neck Soft Tissue DO HCINO BRINKMAN CPT code 40008 Reason For Exam (US Head/Neck Soft Tissue) lt cervical lymphnodes Report HISTORY: Cervical lymph nodes Survey examination of the neck is performed with duplex sonography. FINDINGS: No definite significant lymphadenopathy adenopathy with top normal size lymph nodes level one bilaterally with normal architecture Report Dictated on Final Dictating Physician: MD MUSA WILLIAM Signed Date and Time: 07/04/2022 1:49 pm Signed by: MD MUSA WILLIAM Transcribed Date and Time: 07/04/2022 1:50 Normal [facility] US THYROIDon 03-24-2022 Patient Name: JOSSELYN PERSAUD Ultrasound ACCESSION EXAM DATE/TIME PROCEDURE ORDERING PROVIDER [phone] 03/24/2022 10:42 EDT US Parathyroid DO CHINO BRINKMAN CPT code 41763 Reason For Exam (US Parathyroid) Hashimotos thyroiditis Report ULTRASOUND THYROID: Indication: Neeraj's. Examination: Ultrasonographic evaluation of the thyroid Comparison: None available Findings: RIGHT LOBE: 4.0 x 1.2 x 0.8cm LEFT LOBE: 3.2 x 1.0 x 0.8cm ECHOGENICITY PATTERN: Heterogeneous IMPRESSION: THYROID ULTRASOUND : . 2. 1.2 cm upper right lobe solid hypoechoic nodule graded as a TI RADS four. In this category FNA is only suggested for nodules greater than 1.5 cm. 2. 0.8 cm mid right lobe solid hypoechoic TI RADS four nodule Report Dictated on --- Final --- Dictating Physician: MD MUSA WILLIAM Signed Date and Time: 03/24/2022 11:07 am Signed by: MD MUSA WILLIAM Transcribed Date and Time: 03/24/2022 11:08 [facility] Oli Musa MD - 03/24/2022 Patient Name: JOSSELYN FLORES Ultrasound ACCESSION EXAM DATE/TIME PROCEDURE ORDERING PROVIDER [id number] 03/24/2022 10:42 EDT US Parathyroid DO CHINO BRINKMAN CPT code 04083 Reason For Exam (US Parathyroid) Hashimotos thyroiditis Report ULTRASOUND THYROID: Indication: Neeraj's. Examination: Ultrasonographic evaluation of the thyroid Comparison: None available Findings: RIGHT LOBE: 4.0 x 1.2 x 0.8cm LEFT LOBE: 3.2 x 1.0 x 0.8cm ECHOGENICITY PATTERN: Heterogeneous IMPRESSION: THYROID ULTRASOUND : . 2. 1.2 cm upper right lobe solid hypoechoic nodule graded as a TI RADS four. In this category FNA is only suggested for nodules greater than 1.5 cm. 2. 0.8 cm mid right lobe solid hypoechoic TI RADS four nodule Report Dictated on --- Final --- Dictating Physician: MD MUSA WILLIAM Signed Date and Time: 03/24/2022 11:07 am Signed by: MD MUSA WILLIAM Transcribed Date and Time: 03/24/2022 11:08 [facility] Work Phone: Radiology Study observation (narrative) [facility] Work Phone: US THYROIDOrdered By: Payal Musa on 03-24-2022 [facility] Work Phone: US Thyroid/Parathyroidon US Thyroid/Parathyroid Patient Name: JOSSELYN FLORES Ultrasound ACCESSION EXAM DATE/TIME PROCEDURE ORDERING PROVIDER [id number] 03/24/2022 10:42 EDT US Parathyroid DO CHINO BRINKMAN CPT code 02009 Reason For Exam (US Parathyroid) Hashimotos thyroiditis Report ULTRASOUND THYROID: Indication: Neeraj's. Examination: Ultrasonographic evaluation of the thyroid Comparison: None available Findings: RIGHT LOBE: 4.0 x 1.2 x 0.8cm LEFT LOBE: 3.2 x 1.0 x 0.8cm ECHOGENICITY PATTERN: Heterogeneous IMPRESSION: THYROID ULTRASOUND : . 2. 1.2 cm upper right lobe solid hypoechoic nodule graded as a TI RADS four. In this category FNA is only suggested for nodules greater than 1.5 cm. 2. 0.8 cm mid right lobe solid hypoechoic TI RADS four nodule Report Dictated on Final Dictating Physician: MD MUSA WILLIAM Signed Date and Time: 03/24/2022 11:07 am Signed by: MD MUSA WILLIAM Transcribed Date and Time: 03/24/2022 11:08 [facility] Emergency Department Summary on 02-22-2018 Emergency Department Summary [facility] Records [id number] [place], [place] [address]Iqnirbesh Department Ppczyke83/12/18 0955MR#: [id number] Acct: [id number]: JOSSELYN FLORES Rep #: [id number]: 1975 42 From: Joshua Paul MDPCP: Care Physician, No Primary Status: DEP ER- ER Visit SummaryDate of Service: 02/22/18Chief Complaint: Right middle finger injuryHistory of Present Illness: The patient is a 42 F with no primary care physician. 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 She reports that 2 days ago she was breakingdown a cardboard box when 1 of the flap slammed down on her right index finger. She reportsthat at that point she seemed to have a forced flexion at the MCP joint. She states that ithappened quickly and she is unsure whether she was able to straighten this out on her own orwhether she had use her other hand to straighten it out. However, she reports that since thenshe has had an aching pain is 6 out of 10 with movement and 4 out of 10 at rest. She deniesany paresthesias distally. She denies any other complaints.Physical Examination:Vitals: Stable. Afebrile.General: Well-nourished and well-developed.Head: Normocephalic atraumatic.Neck: Supple, no lymphadenopathy. No JVD. Nontender.Cardiovascul ar: Regular rate and rhythm. No murmurs.Respiratory: No respiratory distress. Clear to auscultation bilaterally.Abdominal: Soft, nontender, nondistended, normal bowel sounds. No guarding, rebound, orperitoneal signs.Back: Nontender.Extremities: Right index finger shows her to have mild tenderness palpation over the palmarsurface of her hand over the second metacarpal head and MCP joint. She has minimal ability toflex the MCP joint. She is able to flex the PIP joint to approximately 90 . She is able toextend against resistance without difficulty. There is mild soft tissue swelling. She isneurovascular intact.Neurologic: Alert and oriented 3. Cranial nerves II through XII are intact. Normal strengthand sensation.Psych: Normal affect.Test Results: Right second finger x-ray is normal.Emergency Department Course and Treatment: Patient refused pain medications. She already hasan aluminum foam splint in place.Treatment Plan: Patient will be discharged instructions to follow-up with Dr. Mcbride in 1week if not improving.Disposition: To home in improved and stable condition.Impression: 1. Right second MCP joint sprain.This note was generated with Health: [employer] dictation software. It may contain incorrect words,spelling, and punctuation that were not noted in review of the chart prior to signingED Disposition- Plan for ED Patient:Chief Complaint: Upper Extremity InjuryInstructions: ED Sprain FingerReferrals:Ashley Us, [STAFF PHYSICIAN] - 1 Week if not improvingWhat to do if you have ProblemsFor any increased pain, shortness of breath, bleeding, nausea or vomiting, chest pain, or anyunexpected problems, contact your Primary Care Provider. Call [facility] ([phone])or report to the closest Emergency Room.Call 911 if necessary.02/22/18 5451 Date Joshua Paul [facility] Signature (If Indicated): Date __CC: No Primary Care Physician Normal [facility] Finger(s) Min 2 Viewson 02-11 Finger(s) Min 2 Views [facility] S[facility]Imaging [id number] [place] [id number](s) Min 2 ViewsMR#: [id number] Acct: [id number]: JOSSELYN FLORES Rep #: [id number]: 1975 F 42 From: Sharmaine Serrano MDPCP: Care Physician, No Primary Status: REG ERStudy: Finger(s) Min 2 Views Date of Exam: 02/22/18Exam# [id number] Ordering Dr: Joshua Paul MDSTUDY: X-RAY - RIGHT HAND, ATTENTION SECOND FINGERREASON FOR EXAM: Female, 42 years old. INJURY, PAIN PROXIMAL FINGERTECHNIQUE: 3 view(s) of the finger were obtained.COMPARISON: None. FIND INGS:Normal metacarpal head. Normal metacarpophalangeal joint.Normal proximal phalanx. Normal middle phalanx. Normal distal phalanx.Normal proximal interphalangeal joint. Normal distal interphalangealjoint._ ORDER #: [id number] RAD/Finger(s) Min 2 ViewsIMPRESSION:Normal x-ray examination of the finger.Electronically Signed:Sharmaine Serrano MD at 10:09 Seth [phone] , Service support , VW: No Primary Care Physician; Joshua Paul MD Band Machine Operator:Isatu Garcia [facility] Vital Signs Date Time Vital Sign Value Performing Clinician Brittany diaz 04-09-2025 14:13-0400 Body height 167.6 cm Jony Valladares MD Work Phone: [facility] 04-09-2025 14:13-0400 Body mass index (BMI) [Ratio] 30.89 kg/m2 Jony Valladares MD Work Phone: [facility] 04-09-2025 14:13-0400 Body weight 86.82 kg Jony Valladares MD Work Phone: [facility] 04-09-2025 14:13-0400 Diastolic blood pressure 78 mm[Hg] Jony Valladares MD Work Phone: [facility] 04-09-2025 14:13-0400 Heart rate 87 /min Jony Valladares MD Work Phone: [facility] 04-09-2025 14:13-0400 SaO2% (BldA) [Mass fraction] 95 % Jony Valladares MD Work Phone: [facility] 04-09-2025 14:13-0400 Systolic blood pressure 132 mm[Hg] Jony Valladares MD Work Phone: [facility] 04-02-2025 12:50-0400 Body height 167.6 cm Jeff Brooks MD Work Phone: [facility] 04-02-2025 12:50-0400 Body mass index (BMI) [Ratio] 31.31 kg/m2 Jeff Brooks MD Work Phone: [facility] 04-02-2025 12:50-0400 Body weight 88 kg Jeff Brooks MD Work Phone: [facility] 04-02-2025 12:50-0400 Diastolic blood pressure 86 mm[Hg] Jeff Brooks MD Work Phone: [facility] 04-02-2025 12:50-0400 Heart rate 82 /min Jeff Brooks MD Work Phone: [facility] 04-02-2025 12:50-0400 SaO2% (BldA) [Mass fraction] 97 % Jeff Brooks MD Work Phone: [facility] 04-02-2025 12:50-0400 Systolic blood pressure 132 mm[Hg] Jeff Brooks MD Work Phone: [facility] 03-26-2025 10:00-0400 Diastolic blood pressure 84 mm[Hg] Jony Valladares MD Work Phone: [facility] 03-26-2025 10:00-0400 Systolic blood pressure 148 mm[Hg] Jony Valladares MD Work Phone: [facility] 03-26-2025 09:52-0400 Body height 167.6 cm Jony Valladares MD Work Phone: [facility] 03-26-2025 09:52-0400 Body mass index (BMI) [Ratio] 30.99 kg/m2 Jony Valladares MD Work Phone: [facility] 03-26-2025 09:52-0400 Body weight 87.09 kg Jony Valladares MD Work Phone: [facility] 03-26-2025 09:52-0400 Heart rate 101 /min Jony Valladares MD Work Phone: [facility] 03-26-2025 09:52-0400 SaO2% (BldA) [Mass fraction] 96 % Jony Valladares MD Work Phone: [facility] 03-23-2025 11:07-0400 Diastolic blood pressure 99 mm[Hg] Carlos Chino DO Work Phone: [facility] 03-23-2025 11:07-0400 Heart rate 74 /min Carlos Chino DO Work Phone: [facility] 03-23-2025 11:07-0400 Respiratory rate 17 /min Carlos Chino DO Work Phone: [facility] 03-23-2025 11:07-0400 SaO2% (BldA) [Mass fraction] 98 % Carlos Chino DO Work Phone: [facility] 03-23-2025 11:07-0400 Systolic blood pressure 185 mm[Hg] Carlos Chino DO Work Phone: [facility] 03-23-2025 08:28-0400 Body height 167.6 cm Carlos Chino DO Work Phone: [facility] 03-23-2025 08:28-0400 Body mass index (BMI) [Ratio] 31.47 kg/m2 Carlos Chino DO Work Phone: [facility] 03-23-2025 08:28-0400 Body weight 88.45 kg Carlos Chino DO Work Phone: [facility] 03-23-2025 08:27-0400 Body temperature 97.3 [degF] Carlos Chino DO Work Phone: [facility] 03-02-2025 16:31-0400 Body temperature 97.7 [degF] Roger Davies Jr. , DO Work Phone: [facility] 03-02-2025 16:31-0400 Diastolic blood pressure 103 mm[Hg] Roger Davies Jr., DO Work Phone: [facility] 03-02-2025 16:31-0400 Heart rate 79 /min Roger Davies Jr. , DO Work Phone: [facility] 03-02-2025 16:31-0400 Respiratory rate 14 /min Roger Davies Jr. , DO Work Phone: [facility] 03-02-2025 16:31-0400 SaO2% (BldA) [Mass fraction] 99 % Roger Davies Jr., DO Work Phone: [facility] 03-02-2025 16:31-0400 Systolic blood pressure 164 mm[Hg] Roger Davies Jr., DO Work Phone: [facility] 02-27-2025 11:15-0400 Diastolic blood pressure 76 mm[Hg] Amanda Zamudio MD Work Phone: [facility] 02-27-2025 11:15-0400 Heart rate 67 /min Amanda Zamudio MD Work Phone: [facility] 02-27-2025 11:15-0400 SaO2% (BldA) [Mass fraction] 99 % Amanda Zamudio MD Work Phone: [facility] 02-27-2025 11:15-0400 Systolic blood pressure 151 mm[Hg] Amanda Maradiaga Work Phone: [facility] 02-27-2025 11:00-0400 Respiratory rate 16 /min Amanda Zamudio MD Work Phone: [facility] 02-27-2025 10:33-0400 Body temperature 97.2 [degF] Amanda Zamudio MD Work Phone: [facility] 02-27-2025 08:32-0400 Body height 167.6 cm Amanda Zamudio MD Work Phone: [facility] 02-27-2025 08:32-0400 Body mass index (BMI) [Ratio] 31.15 kg/m2 Amanda Zamudio MD Work Phone: [facility] 02-27-2025 08:32-0400 Body weight 87.54 kg Amanda Zamudio MD Work Phone: [facility] 09-14-2024 12:17-0500 Body height 167.6 cm Eileen Anand MD Work Phone: [facility] 09-14-2024 12:17-0500 Body mass index (BMI) [Ratio] 32.28 kg/m2 Eileen Anand MD Work Phone: [facility] 09-14-2024 12:17-0500 Body weight 90.72 kg Eileen Anand MD Work Phone: [facility] Encounters Encounter Date Encounter Type Care Provider Facility Start: 04-09-2025 End: 04-09-2025 Office outpatient visit 25 minutes Jony Valladares MD Work Phone: [facility] Pulmonary and Sleep Medicine - [place] Comment on above: Hypersensitivity pne umonia (CMS/HCC) (HCC) (Primary Dx); Subacute cough; Hypersomnia Start: 04-09-2025 End: 04-09-2025 ambulatory [facility] Start: 04-02-2025 End: 04-02-2025 Office outpatient new 60 minutes Jeff Brooks MD Work Phone: [facility] Sleep Medicine - [facility] Comment on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 [facility] [id number] Miscellaneous Notes* Telephone Encounter - Nohemi Vaca - 03/03/2024 12:29 PM EDT Pt received call to have US but already had that from another provider today 03.03.2024 so she dontneed the one scheduled for 03/09/2024 documented in this [facility]03-21-2024 NoteHNO ID: [id number] Author: ?, ?, ? Service: ? Author Type: ? Type: Progress Notes Filed: 12/02/2023 00:19 Note Text: Sleep Study Check-In Documentation Date: December 02, 2023 Name: Josselyn Flores Patient was accompanied by Self. Location: [facility] Latex allergy: No Tape allergy: No, sensitivity yes. No adhesive preference given. Current medications were reviewed with the patient:Yes Sleep aid taken by patient for the sleep study: Yes Name of sleep aid: Ambien 10mg. Procedure was explained to the patient and all questions were answered. PAP treatment discussed and shown to patient: Yes Knowledge Program (KP): KP was not completed in epic by patient and accepted Study type: Polysomnogram Adverse Event: No (If yes create a new abstract) Comments: Patient was advised to follow up with their ordering provider regarding test results Jelena Maldonado RPSROBERTO. Note: MSLT to follow.[facility]03-18-2024 NoteHNO ID: [id number] Author: BECKI LIRA DO Service: ? Author Type: Physician Type: Progress Notes Filed: 12/01/2023 07:56 Note Text: November 29, 2023 An order has been received for Polysomnogram (PSG) from [facility] Staff/Power [employer] Engineer Staff Orders. Visit prep complete - Please refer to the sleep study order (under procedures tab) for protocol details and special instructions. The sleep study is scheduled for 12/01/2023. Insurance: Payor: [facility] MEDICAID / Plan: [facility] COMMUNITY PLAN MEDICAID [facility] / Product Type: Medicaid / Payer/Plan Subscr Sex Relation Sub. Ins. ID Effective Group Num 1. [facility] MEDICAID * JOSSELYN FLORES 1975 Female Self [id number] 09/13/23 [place] [address] November 29, 2023 Standing PSG Orders signed in the last 90 days None Future PSG Orders signed in the last 90 days None All Prior Sleep Studies (past 365 days) No data to display BMI Readings from Last 2 Encounters: 07/11/15 : 25.12 kg/m? PAST MEDICAL HISTORY Diagnosis Date Miscarriage MVP (mitral valve prolapse) The medical record was reviewed to determine if the proposed sleep study conforms to the AASM Practice Parameters for the Indications for Polysomnography and Related Procedures, or if the sleep study is indicated for other reasons. Indications for study: JUDY suspected without comorbid medical or sleep disorders Sleep study to be performed: Polysomnogram: needs to be in lab so MSLT can follow. Special instructions: Target REM/supine sleep Add EtCO2 or Transcutaneous CO2 if available Notes from physician office 10/28/2023 Weight gain of 20 lbs in the past year. 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 [facility] Staff Note: I have read the above protocol, edited as needed, and agree to the plan. 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 [facility] Diagnosis Right upper quadrant pain Abdominal pain, right upper quadrant [facility]* Diagnosis Hypothyroidism, unspecified [facility]* Diagnosis Hypothyroidism, unspecified- Primary Hypothyroidism, unspecified [facility]* Diagnosis Right upper quadrant pain- Primary Abdominal pain, right upper quadrant Right upper quadrant pain Abdominal pain, right upper quadrant [facility]* Diagnosis Right upper quadrant pain- Primary Abdominal pain, right upper quadrant [facility]* Diagnosis Encounter for screening mammogram for malignant neoplasm of breast [facility]* Diagnosis Encounter for screening mammogram for malignant neoplasm of breast- Primary Flushing Myalgia, unspecified site Hypersomnia, unspecified Encounter for screening mammogram for malignant neoplasm of breast [facility]* Diagnosis Hypothyroidism, unspecified- Primary [facility]* Diagnosis Abnormal uterine bleeding Unspecified disorder of menstruation and other abnormal bleeding from female genital tract PONV (postoperative nausea and vomiting) Nausea with vomiting Motion sickness [facility]* Diagnosis Nonintractable headache, unspecified chronicity pattern, unspecified headache type- Primary Temperature body decrease Other general symptoms [facility]* Diagnosis URI, acute- Primary Acute upper respiratory infections of unspecified site documented in this encounter [facility] [place] [facility]* Diagnosis 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 Subacute cough Idiopathic hypersomnia Hypersomnia, unspecified Primary hypertension Unspecified essential hypertension [facility]* Diagnosis Unspecified visual disturbance documented in this encounter [facility] [place] [facility]* Diagnosis Sleep disorder- Primary Unspecified sleep disturbance Hypersomnolence Hypersomnia, unspecified documented in this encounter [facility] [place] [facility]* Diagnosis 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 * Upper Respiratory Infection ED (Albanian) [facility] Narrative* Auth/Cert (Routine) Specialty Diagnoses / Procedures Referred By Caroline castañeda Referred To Contact Diagnoses Abnormal uterine bleeding Procedures OR HYSTEROSCOPY BX ENDOMETRIUM&/POLYPC W/WO D&C HYSTEROSCOPY DILATION AND CURETTAGE WITH POSSIBLE MYOSURE Amanda Zamudio MD [address] [place] [id number] Phone: tel: fax: [facility] OR [address] [place] [address] Phone: tel: Referral ID Status Reason Start Date Expiration Date Visits Re quested Visits Authorized [id number] 1 1 [facility] for visit Narrative* Imaging (Routine) - Closed Specialty Diagnoses / Procedures Referred By Caroline castañeda Referred To Contact Radiology Diagnoses Unspecified visual disturbance Procedures MR brain wo contrast Maricarmen Bolton, MAILROOM COORDINATOR - UI SOFTWARE DEVELOPER [address] [place] [address] Phone: tel: fax: [facility] [address] [place] [address] Phone: tel: fax: Referral ID Status Reason Start Date Expiration Date Visits Re quested Visits Authorized [id number] Closed 03/08/2025 03/08/2026 1 1 [facility] Summary Purpose Family History No Family History Records FoundNo Family History Records FoundNo Family History Records FoundNo Family History Records Found No data available for this section No Family History Records FoundNo Family History Records Found Advance Directives No Advanced Directives Records Found Date Activated Date Inactivated Comments 02/27/2025 8:17 AM 02/27/2025 1:50 PM Date Activated Date Inactivated Comments 02/27/2025 8:17 AM 02/27/2025 1:50 PM Additional Source Comments INFORMATION SOURCE (unrecogn ized section and content) DATE CREATED AUTHOR 03/01/2018 [facility] DATE CREATED AUTHOR AUTHOR'S ORGANIZ ATION 07/09/[address] [facility] DATE CREATED AUTHOR AUTHOR'S ORGANIZ ATION 12/06/2023 [facility] DATE CREATED AUTHOR AUTHOR'S ORGANIZ ATION 12/16/2023 [facility] DATE CREATED AUTHOR AUTHOR'S ORGANIZ ATION 03/30/2025 [facility] DATE CREATED AUTHOR AUTHOR'S ORGANIZ ATION 04/10/2025 [facility] Care Teams (unrecognized sec tion and content) Computer Security Manager Relationship Specialty Start Date End Date Carlos Chino DO [address] [place] [address] PCP - General 03/20/22 Computer Security Manager Relationship Specialty Start Date End Date Carlos Chino DO [address] [place] [phone] PCP - General 03/20/22 Computer Security Manager Relationship Specialty Start Date End Date Carlos Chino DO [address] [place] [address] PCP - General 03/20/22 Computer Security Manager Relationship Specialty Start Date End Date Carlos Chino DO [address] [place] [phone] PCP - General 03/20/22 Computer Security Manager Relationship Specialty Start Date End [place] [phone] PCP - General 03/20/22 Computer Security Manager Relationship Specialty Start Date End [place] [phone] PCP - General 03/20/22 Computer Security Manager Relationship Specialty Start Date End Date [place] [phone] PCP - General 03/20/22 Computer Security Manager Relationship Specialty Start Date End Date Carlos [place] [address] PCP - General 03/20/22 Computer Security Manager Relationship Specialty Start Date End [place] [address] PCP - General 03/20/22 Computer Security Manager Relationship Specialty Start Date End Date [place] [phone] PCP - General 03/20/22 Computer Security Manager Relationship Specialty Start Date End Date Carlos Chino [place] [address] [place] [phone] PCP - General 03/20/22 Computer Security Manager Relationship Specialty Start Date End Date Carlos Chino DO [address] [place] [address] PCP - General 03/20/22 Computer Security Manager Relationship Specialty Start Date End Date Matti Carlos, [address] [place] [address] PCP - General 03/20/22 Computer Security Manager Relationship Specialty Start Date End Date Carlos Chino DO [address] [place] [address] PCP - General 03/20/22 Computer Security Manager Relationship Specialty Start Date End Date Carlos Chino DO [address] [place] [address] PCP - General 03/20/22 Computer Security Manager Relationship Specialty Start Date End Date Carlos Chino DO [address] [place] [address] PCP - General 03/20/22 Computer Security Manager Relationship Specialty Start Date End Date [place] [phone] PCP - General 03/20/22 Computer Security Manager Relationship Specialty Start Date End Date Carlos Chino DO [address] [place] [phone] PCP - General 03/20/22 Computer Security Manager Relationship Specialty Start Date End Date Carlos Chino DO [address] [place] [phone] PCP - General 03/20/22 Reason for Visit (unrecogniz ed section and content) Reason Onset Date Comments Message to Office 03/03/2024 Reason Onset Date Comments Medication Problem 08/28/2024 Reason Onset Date Comments Other 09/07/2024 Reason Onset Date Comments Reschedule 01/29/2025 Reason Onset Date Comments Other 02/15/2025 Patient is reque sting callback re medication and states she is unable to access her patient portal at this time. Please advise and contact. Thank you Reason Comments Headache Pt presents to ED fo r migraine, sweating, dizziness, low body temp. Pt reports previous issues with temp regulation. Pt also states she is having issues with her narcolepsy as well. Reason Comments Shortness of Breath Pt arrived to triage for thinking she has pneumonia, pt endorses mold exposure, and chest cold with productive cough. Reason Comments New Patient Cough Yellow thick Wheezing Shortness of Breath Other Fingers are tingling ,fever Reason Onset Date Comments Other 03/28/2025 Questions Reason Comments New Patient IDIOPATHIC HYPERSOMN IA Reason Comments Cough Shortness of Breath Wheezing CONGESTED Scheduled Active and Recently Administ ered Medications (unrecognized section and content) Medication Order 02/25/2025 02/26/2025 02/27/2025 acetaminophen (Tylenol) tablet 1,000 mg (COMPLETED) 1,000 mg, Oral, Once, On Wed02/27/25 at 0830, For 1 dose, Preprocedure, Administer 60 minutes prior to surgery. 0836 (Given - Provid er: Daphney Kan RN) aprepitant (Emend) capsule 40 mg (COMPLETED) 40 mg, Oral, Once, On Wed02/27/25 at 0930, For 1 dose, Preprocedure 0956 (Given - Provid er: Daphney Kan RN) famotidine (Pepcid) tablet 20 mg (COMPLETED)(Linked Group 1) 20 mg, Oral, Once, On Wed02/27/25 at 0830, For 1 dose, Preprocedure, IV or Oral 0836 (Given - Provid er: Daphney Kan RN) sodium chloride 0.9% (NS) flush 10 mL 10 mL, IntraVENous, Every 12 hours scheduled (2 times per day), First dose on Wed02/27/25 at 1045, Recovery (only) 1045 (Canceled Entry - Provider: Automatic Discharge Provider - Comment: Automatically canceled at discontinue of medication order) sodium chloride 0.9% (NS) flush 5-40 mL 5-40 mL, IntraVENous, Every 12 hours, First dose on Wed02/27/25 at 0830, Preprocedure, For Line Patency: Peripheral IV = 5 mL; Midline or Central Line = 10 mL/lumen. If following IV push medication, administer flush at same rate as the IV push. Flush volume is determined by type of infusion therapy being given. For non-viscous solutions use: Peripheral IV = 5 mL Midline or Central Line = 10 mL/lumen For viscous solutions (i.e. blood components, parenteral nutrition, contrast media, or after obtaining blood sample) use: Peripheral IV = 10 mL Midline or Central Line = 20 mL/lumen 0830 (Canceled Entry - Provider: Automatic Discharge Provider - Comment: Automatically canceled at discontinue of medication order) Continuous Medication Order 02/25/2025 02/26/2025 02/27/2025 lactated Ringer's (LR) infusion 50 mL/hr, IntraVENous, Continuous, Starting on Wed02/27/25 at 0830, Preprocedure, Upon admission to sameday - please start iv if patient does not have iv access. Use 500ml NS for patients on dialysis. 0836 (New Bag - Prov ider: Daphney Kan RN)0958 (Continued by Anesthesia - Provider: Consuelo Rebolledo CRNA)1033 (Anesthesia Volume Adjustment - Provider: Consuelo Rebolledo CRNA)1035 (Anesthesia Volume Adjustment - Provider: Consuelo Rebolledo CRNA) lactated ringers infusion 125 mL/hr, IntraVENous, Continuous, Starting on Wed02/27/25 at 1045, Recovery (only) 1045 (Canceled Entry - Provider: Automatic Discharge Provider - Comment: Automatically canceled at discontinue of medication order) PRN Medication Order 02/25/2025 02/26/2025 02/27/2025 ALPRAZolam (Xanax) disintegrating tablet 0.25 mg 0.25 mg, Oral, Once PRN, anxiety, Starting on Wed02/27/25 at 0817, For 1 dose, Preprocedure, Please do not administer prior to obtaining consent and/or history and physical. diphenhydrAMINE (BENADryl) injection 12.5 mg 12.5 mg, IntraVENous, Once PRN, itching, Starting on Wed02/27/25 at 1034, For 1 dose, Recovery (only) fentaNYL (Sublimaze) injection 25 mcg 25 mcg, IntraVENous, Every 5 min PRN, moderate pain (4-6), Starting on Wed02/27/25 at 1034, For 3 doses, Recovery (only), Phase I and Phase II- Initial therapy for moderate pain (4-6). Restricted to a 90 minute time frame starting when the patient can verbally state their pain score. If after 2 doses the pain score does not decrease by more than one point, then call the provider. If oral meds are utilized, do not return to initial therapy medications. 1057 (Given - Provid er: Chandni Nunez RN) fentaNYL (Sublimaze) injection 50 mcg 50 mcg, IntraVENous, Every 5 min PRN, severe pain (7-10), Starting on Wed02/27/25 at 1034, For 3 doses, Recovery (only), Phase I and Phase II- Initial therapy for severe pain (7-10). Restricted to a 90 minute time frame starting when the patient can verbally state their pain score. If after 2 doses the pain score does not decrease by more than one point, then call the provider. If oral meds are utilized, do not return to initial therapy medications. hydrALAZINE (Apresoline) injection 5 mg(Linked Group 2) 5 mg, IntraVENous, Every 15 min PRN, high blood pressure, for SBP greater than 160 mmHg for 2 consecutive measurements taken from different sites, Starting on Wed02/27/25 at 1034, For 2 doses, Recovery (only), PRN for SBP > 160 for 2 consecutive measurements, and if one of the following conditions is met: 1) If IV labetolol is ineffective. 2) If HR is under 60. 3) If patient has heart block, COPD or asthma. If both labetalol and hydralazine ineffective, notify anesthesia provider. labetalol (Normodyne,Trandate) injection 5 mg(Linked Group 2) 5 mg, IntraVENous, Every 10 min PRN, high blood pressure, for SBP greater than 160 mmHg for 2 consecutive measurements taken from different sites., Starting on Wed02/27/25 at 1034, For 2 doses, Recovery (only), PRN for SBP >160 for 2 consecutive measurements, if HR is 60 or greater. If beta nicole is contraindicated (HR less than 60, heart block, COPD or asthma) use hydralazine IV order. ondansetron (Zofran) injection 4 mg (COMPLETED) 4 mg, IntraVENous, Once PRN, nausea, Starting on Wed02/27/25 at 1034, For 1 dose, Recovery (only), Initial antiemetic therapy. 1057 (Given - Provid er: Chandni Nunez RN) oxyCODONE (Roxicodone) immediate release tablet 10 mg(Linked Group 3) 10 mg, Oral, Every 4 hours PRN, severe pain (7-10), Starting on Wed02/27/25 at 1034, For 1 dose, Recovery (only), PHASE II oxyCODONE (Roxicodone) immediate release tablet 5 mg(Linked Group 3) 5 mg, Oral, Every 4 hours PRN, moderate pain (4-6), Starting on Wed02/27/25 at 1034, For 1 dose, Recovery (only), PHASE II sodium chloride 0.9 % bolus 500 mL 500 mL, IntraVENous, at 1,000 mL/hr, Administer over 0.5 Hours, PRN, Anti-nausea, Starting on Wed02/27/25 at 1034, Recovery (only), Indications: Anti-nausea sodium chloride 0.9 % infusion 5-250 mL/hr, IntraVENous, PRN, if patient receiving piggyback infusions and maintenance fluids are not ordered OR KVO fluids to protect IV site / prevent frequent line interruptions / long duration, Starting on Wed02/27/25 at 0817, Preprocedure, For piggyback infusion, administer at same rate as piggyback for a total of 25 mL. Enter 25 mL into dose field and piggyback rate into rate field of order. If piggyback is infusing at a rate less than 100 mL/hr, enter 25 mL into dose field and 100 mL/hr into rate field of order. For KVO fluids, enter rate of 20 mL/hr or less into rate field of order. sodium chloride 0.9 % infusion 5-250 mL/hr, IntraVENous, PRN, if patient receiving piggyback infusions and maintenance fluids are not ordered OR KVO fluids to protect IV site / prevent frequent line interruptions/ long duration, Starting on Wed02/27/25 at 1034, Recovery (only), For piggyback infusion, administer at same rate as piggyback for a total of 25 mL. Enter 25 mL into dose field and piggyback rate into rate field of order. If piggyback is infusing at a rate less than 100 mL/hr, enter 25 mL into dose field and 100 mL/hr into rate field of order. For KVO fluids, enter rate of 20 mL/hr or less into rate field of order. sodium chloride 0.9 % irrigation solution (CANCELED) As needed, Starting on Wed02/27/25 at 1019, Intraprocedure 1019 (Given - Provid er: Amanda Zamudio MD - Comment: 80mL DEFICIT) sodium chloride 0.9% (NS) flush 10 mL 10 mL, IntraVENous, PRN, line care, Starting on Wed02/27/25 at 1034, Recovery (only), After every IV line use sodium chloride 0.9% (NS) flush 5-40 mL 5-40 mL, IntraVENous, PRN, line care, After every IV line use, Starting on Wed02/27/25 at 0817, Preprocedure, For Line Patency: Peripheral IV = 5 mL; Midline or Central Line = 10 mL/lumen. If following IV push medication, administer flush at same rate as the IV push. Flush volume is determined by type of infusion therapy being given. For non-viscous solutions use: Peripheral IV = 5 mL Midline or Central Line = 10 mL/lumen For viscous solutions (i.e. blood components, parenteral nutrition, contrast media, or after obtaining blood sample) use: Peripheral IV = 10 mL Midline or Central Line = 20 mL/lumen sterile water irrigation solution (CANCELED) As needed, Starting on Wed02/27/25 at 1019, Intraprocedure 1019 (Given - Provid er: Amanda Zamudio MD - Comment: SPECULUMS/ CASE CLEAN UP) Linked Groups Order Group 1: famotidine (Pepcid) tablet 20 mg (COMPLETED)Jump to med 20 mg, Oral, Once, On Wed02/27/25 at 0830, For 1 dose, Preprocedure, IV or Oral Or famotidine (Pepcid) 20 mg in sodium chloride (PF) 0.9 % 10 mL injection (COMPLETED) 20 mg, IntraVENous, Administer over 2 Minutes, Once, On Wed02/27/25 at 0830, For 1 dose, Preprocedure, IV or Oral Group 2: labetalol (Normodyne,Trandate) injection 5 mgJump to med 5 mg, IntraVENous, Every 10 min PRN, high blood pressure, for SBP greater than 160 mmHg for 2 consecutive measurements taken from different sites., Starting on Wed02/27/25 at 1034, For 2 doses, Recovery (only), PRN for SBP >160 for 2 consecutive measurements, if HR is 60 or greater. If beta nicole is contraindicated (HR less than 60, heart block, COPD or asthma) use hydralazine IV order. Or hydrALAZINE (Apresoline) injection 5 mgJump to med 5 mg, IntraVENous, Every 15 min PRN, high blood pressure, for SBP greater than 160 mmHg for 2 consecutive measurements taken from different sites, Starting on Wed02/27/25 at 1034, For 2 doses, Recovery (only), PRN for SBP > 160 for 2 consecutive measurements, and if one of the following conditions is met: 1) If IV labetolol is ineffective. 2) If HR is under 60. 3) If patient has heart block, COPD or asthma. If both labetalol and hydralazine ineffective, notify anesthesia provider. Group 3: oxyCODONE (Roxicodone) immediate release tablet 5 mgJump to med 5 mg, Oral, Every 4 hours PRN, moderate pain (4-6), Starting on Wed02/27/25 at 1034, For 1 dose, Recovery (only), PHASE II Or oxyCODONE (Roxicodone) immediate release tablet 10 mgJump to med 10 mg, Oral, Every 4 hours PRN, severe pain (7-10), Starting on Wed02/27/25 at 1034, For 1 dose, Recovery (only), PHASE II Scheduled Medication Order 02/28/2025 03/01/202503/0203/02/2025 diphenhydrAMINE (BENADryl) injection 25 mg 25 mg, IntraVENous, Once, On Wed03/02/25 at 1645, For 1 dose 1705 (Not Given - Pr ovider: Jose M Cornell, EMT - Reason: Patient/family refused) sodium chloride 0.9 % bolus 1,000 mL (COMPLETED) 1,000 mL, IntraVENous, at 1,000 mL/hr, Administer over 1 Hours, Once, On Wed03/02/25 at 1645, For 1 dose 1704 (New Bag - Prov ider: Jose M Cornell, EMT)1825 (Stopped - Provider: René Cunningham RN) PRN Medication Order 02/28/2025 03/01/2025 03/02/2025 prochlorperazine (Compazine) injection 10 mg 10 mg, IntraVENous, Every 6 hours PRN, nausea, vomiting, Starting on Wed03/02/25 at 1642 Scheduled Medication Order 03/21/2025 03/22/2025 03/23/2025 ipratropium-albuterol (Duo-Neb) 0.5-2.5 mg/3 mL nebulizer solution 3 mL (COMPLETED) 3 mL, Nebulization, Once, On Wed03/23/25 at 0940, For 1 dose 0956 (Given - Provid er: Marily Mccoy LPN) methylPREDNISolone sodium succinate (PF) (SOLU-Medrol) injection 125 mg 125 mg, IntraVENous, Once, On Wed03/23/25 at 0940, For 1 dose 1041 (Not Given - Pr ovider: Libia Willis RN - Reason: Patient/family refused) FOR RECORDS PERTAINING TO PATIENTS WHO ARE OR HAVE BEEN ENROLLED IN A CHEMICAL DEPENDENCY/SUBSTANCEABUSE PROGRAM, SOME INFORMATION MAY BE OMITTED. This clinical summary was aggregated from multiple sources. Caution should be exercised in using it in the provision of clinical care. This summary normalizes information from multiple sources, and as a consequence, information in this document may materially change the coding, format and clinical context of patient data. In addition, data may be omitted in some cases. CLINICAL DECISIONS SHOULD BE BASED ON THE PRIMARY CLINICAL RECORDS. [facility]. provides no warranty or guarantee of the accuracy or completeness of information in this document.
--- NOTE | 2025-05-01 01:26 | PCA ---
MEDICAL CLEARANCE FAXED TO CRISIS
--- NOTE | 2025-05-01 02:30 | ED.RN ---
This RN received a phone call from Dori at [facility]. Dori asked this RN for information regarding the patient's medical history and behavior while at [facility], and asked for a recent set of vital signs on the patient. This RN answered all of Dori's questions, however this RN explained that the patient was due for VS and that this RN could get the patient's VS if Dori would stay on hold. This RN went to obtain the patient's VS but the patient was sitting at the edge of the bed, stating I want to check myself out, I want the papers to sign and I want my stuff, because I want to get myself out of here. This RN reiterated to the patient that the patient was pink slipped and this RN explained to the patient what this meant and how the patient could not leave because of the crisis center's evaluation of the patient and the patient's need for psychiatric care. At this point, the patient was becoming agitated and NIGHAT Hancock entered the room and deescalated the patient. NIGHAT Hancock explained to the patient that she could not leave d/t the pink slip and the patient's hallucination. The patient stated, I don't understand why you all think I am hallucinating when I have diagnoses stating that I have mold in my house and that I have medical conditions because of the mold in my house, then why do you all think I am hallucinating. I am not hallucinating if I got a biopsy of my arm today saying that I have mold in these blisters. Did you get my medical records from my doctor? Did you call my PCP? They all know that I am not making this up. NIGHAT Hancock informed the patient that she would contact the counseling center for more information regarding the conversation prior to her arrival to [facility]. This RN updated Dori on the vital signs at this time, however, this RN explained that the vital signs are abnormal d/t the patient's agitation at this time, but the patient does have a history of hypertension and takes a beta nicole. Dori from [facility] requested that her beta nicole be given and then for updated vital signs to be reported to Dori when a SBP >150. Dori informed this RN that the patient would have acceptance to [facility] pending her vital signs. This RN obtained an order for the patient's home medication. See MAR documentation.
[2025-05-01] MEDS: Ziprasidone IM 20 MG/ML VIAL IM (04:12)
--- NOTE | 2025-05-01 04:15 | ED.RN ---
The patient approached this RN at the nursing station stating, if you guys are supposed to be medically clearing me, then have you talked to my primary care doctor or looked at my biopsy results. You need to get those in order to medically clear me, they have all my information and I have all the paperwork on my phone. This RN redirected the patient back to her room and explained to the patient that the urine and blood work that we obtained was what we needed to medically clear the patient to go to the facility. The patient was very agitated during this interaction. NIGHAT Hancock entered the room and attempted to explain further to the patient that we did medically clear the patient for her to go to the facility. And the patient responded, well I don't understand this, I don't understand why you even need to send me to a facility. NIGHAT Hancock explained that it is because of the conversation with crisis prior to her arrival to [facility] and for her family's concern for her wellbeing and lack of ability to care for herself. The patient stated, well I don't understand that because I care for myself just fine, I just don't understand what you mean by a pink slip. NIGHAT Hancock explained again at length what this meant for the patient and why she is unable to leave and why she is going to a facility. The patient become more agitated and demarcus was given, see MAR documentation.
--- NOTE | 2025-05-01 06:36 | ED.RN ---
This RN attempted to call the patient's daughter, Kerrie, at this time per the patient's request. 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 The patient's daughter did not answer the phone. The patient's belongings remain in the patient belonging bags.
--- NOTE | 2025-05-01 06:54 | ED.RN ---
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
--- NOTE | 2025-05-01 07:16 | ED.RN ---
This RN confirmed with Kerrie, the patient's daughter that she would be coming in after work to get the patient's keys. This RN removed the patient's keys from the patient's belonging bag with NIGHAT Uriarte as a witness in order to put them at the triage desk for the patient's daughter to pick them up.
--- NOTE | 2025-05-01 11:22 | CM.ED ---
Social Work SW received phone call from [facility] requesting a face sheet be faxed to [phone]. Face sheet faxed. ANTONINO Ojeda, ELECTROLYSIS OPERATOR
--- NOTE | 2025-05-01 12:02 | CM.ED ---
Social Work Patient has been accepted to [facility]. Accepting is Dr. Avitia. Elmo slip and EKG faxed. Lina Schafer, CITY CLERK, RAIL CAR UNLOADER
--- NOTE | 2025-05-01 12:36 | EKG12_ITS ---
Test Reason : PLACEMENT Blood Pressure : */* mmHG Vent. Rate : 74 BPM Atrial Rate : 74 BPM P-R Int : 180 ms QRS Dur : 86 ms QT Int : 376 ms P-R-T Axes : 57 52 60 degrees QTcB Int : 417 ms Normal sinus rhythm Normal ECG Confirmed by NONA RUIZ, MARANDA ([id number]), book or script editor PRITI JIN ([id number]) on 05/02/2025 9:36:05 AM Referred By: AR Confirmed By: MARANDA CASTELLANO MD
--- NOTE | 2025-05-01 13:12 | ED.RN ---
attempted to call report to [facility]. No answer at facility
--- NOTE | 2025-05-01 13:32 | ED.RN ---
Report called to [facility], spoke with Deanne DISLA.
== END 2025-05-01 13:24 ==
PROVIDERS: Emergency Provider Emergency Medicine; PCP Family Medicine; Visit Provider Emergency Medicine
DX: F32.A Depression, unspecified (principal); R44.2 Other hallucinations; Z79.899 Other long term (current) drug therapy
CPT/HCPCS: 36415; 80048; 80307; 82077; 84703; 85025; 93005; 96372; 99284; J3486